=== PATIENT | male | born 1945 | race Caucasian/White ===

== ENCOUNTER 2023-11-14 14:11 | Outpatient (AMB) | payer MEDICARE, BC, SELFPAY ==
--- NOTE | 2023-11-14 15:27 | HO.NEPHOV_ITS ---
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 He has H/O no significant proteinuria and has a bland UA. Etiology of his CKD has been unclear with ddx possibilities including prior SHAAN with incomplete recovery, PARVEZ associated with crohn's or sulfasalazine, nonproteinuric DKD, nephrosclerosis, and CRS. Despite optimization of his volume status using the cardiomems device his creatinine has remained at about 3.8-4 mg/dl. He is not uremic. He tells me that since starting isosorbide, he has had a significant improvement in his SOB and endurance. He has been off of sulfasalazine and his crohn's is quiescent.He went for modality education and is planning for in-center and later eventually home HD. He undertook venous mapping and needs to have the AVF placed when the timing is right. His last eGFR was close to 14 cc/min. He denies any uremic symptoms. He has seen Dr. Aiken who suggested an AV graft when he gets close to initiation of renal replacement. He is here to establish renal care with me. [facility] Medical History (Updated 12/16/23 @ 13:10 by Merritt Daugherty MD) Type 2 diabetes mellitus Congestive heart failure Hypertension Chronic kidney disease Surgical History (Updated 11/14/23 @ 15:36 by Padma Silva MA) S/P placement of cardiac pacemaker S/P rotator cuff repair History of appendectomy History of colectomy History of hip replacement Social History (Updated 11/14/23 @ 15:37 by Padma Silva MA) Alcohol intake: never Patient Tobacco Use Status: Former Tobacco user Vital Signs 11/14/23 15:28 Height 5 ft 8 in Weight 165 lb BMI 25.1 BP 134/70 Blood Pressure Location Rt brachial Position Sitting Pulse 65 Pulse Source Pulse Oximeter Pulse Oximetry (%) 98 Oxygen Delivery Method Room Air Physical Exam Vital Signs: Last Vital Signs Pulse 65 11/14/23 15:28 BP 134/70 11/14/23 15:28 Pulse Ox 98 11/14/23 15:28 Oxygen Delivery Method Room Air 11/14/23 15:28 BMI result Body Mass Index 25.1 Const General: comfortable and no acute distress Orientation/consciousness: patient oriented x3 HEENT Head: Yes normocephalic Mouth: Normal oral and palatal mucosa present Eyes EOM: EOMs intact bilaterally Neck Neck: Yes supple Resp Auscultation: clear to auscultation bilaterally Cardio Jugular venous distension: no JVD Rate: regular rate GI Palpation (GI): Soft to palpation Auscultation: normal bowel sounds General: Yes no CVA tenderness Back/Spine/Pelvis Back: no CVA tenderness Skin General skin exam: no rashes or lesions noted Neuro General: patient oriented x3 and moves all extremities Extrem General: Yes no pedal edema Assessment & Plan Assessment & Plan (1) Anemia in chronic kidney disease (CKD): Code(s): N18.9 - Chronic kidney disease, unspecified; D63.1 - Anemia in chronic kidney disease Qualifiers: Chronic kidney disease stage: stage 5, not on chronic dialysis Qualifi ed Code(s): N18.5 - Chronic kidney disease, stage 5; D63.1 - Anemia in chronic kidney disease (2) Hypertension: Code(s): I10 - Essential (primary) hypertension Qualifiers: Hypertension type: primary hypertension Qualified Code(s): I10 - Essential (primary) hypertension (3) CKD (chronic kidney disease) stage 5, GFR 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 ml/min: Code(s): N18.5 - Chronic kidney disease, stage 5 Plan 78 yo man with stage 5 CKD, potential etiologies could be multiple but not very clear. He has no proteinuria. He had decline in GFR but had hospitalization w ith hypervolemia and was initiated on aggressive medical management. He feels better since he was started on isosorbide. He is with Cardiomems now. He appeared euvolemic and is no longer on sulfasalazine. UA is bland. Doppler is negative for ASTRID. I don't see any benefit to biopsy in this setting. We discussed preparation for dialysis. He is opting for HD. We discussed home HD and he has interest in this but would like to start [place], initially. He is not uremic and remains diuretic responsive. He has seen Dr. Aiken who strongly feels he will be a great candidate for AV graft which could be put in when he is close to initiation of renal replacement. He has anemia chronic kidney disease and will need Procrit in the future to keep his hemoglobin close to 11 grams/deciliter. He is closely followed up with heart failure clinic in [facility] and has a CardioMEMS in place. I did not make any medication changes today but rather discuss this case, ordered follow-up blood work and answered all his questions and concerns. Follow-up was given. I plan to do a 24 hour urine collection for GFR after next visit. Further management is pending evolving data. Orders: Orders IRON PROFILE 11/14/23 N18.4 - Chronic kidney disease, stage 4 (severe), N18.9 - Chronic kidney disease, unspecified, D63.1 - Anemia in chronic kidney disease, I10 - Essential (primary) hypertension Ferritin 11/14/23 N18.4 - Chronic kidney disease, stage 4 (severe), N18.9 - Chronic kidney disease, unspecified, D63.1 - Anemia in chronic kidney disease, I10 - Essential (primary) hypertension Creatinine 11/14/23 N18.4 - Chronic kidney disease, stage 4 (severe), N18.9 - Chronic kidney disease, unspecified, D63.1 - Anemia in chronic kidney disease, I10 - Essential (primary) hypertension Electrolytes 11/14/23 N18.4 - Chronic kidney disease, stage 4 (severe), N18.9 - Chronic kidney disease, unspecified, D63.1 - Anemia in chronic kidney disease, I10 - Essential (primary) hypertension Phosphorus 11/14/23 N18.4 - Chronic kidney disease, stage 4 (severe), N18.9 - Chronic kidney disease, unspecified, D63.1 - Anemia in chronic kidney disease, I10 - Essential (primary) hypertension Calcium 11/14/23 N18.4 - Chronic kidney disease, stage 4 (severe), N18.9 - Chronic kidney disease, unspecified, D63.1 - Anemia in chronic kidney disease, I10 - Essential (primary) hypertension Vitamin D 25-OH Total 11/14/23 N18.4 - Chronic kidney disease, stage 4 (severe), N18.9 - Chronic kidney disease, unspecified, D63.1 - Anemia in chronic kidney disease, I10 - Essential (primary) hypertension Complete Blood Count Auto Diff 11/14/23 N18.4 - Chronic kidney disease, stage 4 (severe), N18.9 - Chronic kidney disease, unspecified, D63.1 - Anemia in chronic kidney disease, I10 - Essential (primary) hypertension Blood Urea Nitrogen 11/14/23 N18.4 - Chronic kidney disease, stage 4 (severe), N18.9 - Chronic kidney disease, unspecified, D63.1 - Anemia in chronic kidney disease, I10 - Essential (primary) hypertension Coding Level of Care Code New Pt Level 4 (54032) Diagnoses Anemia in stage 5 chronic kidney disease, not on chronic dialysis N18.5; D63.1 Chronic kidney disease stage: stage 5, not on chronic dialysis Primary hypertension I10 Hypertension type: primary hypertension CKD (chronic kidney disease) stage 5, GFR 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 ml/min N18.5 Results Reviewed Nephrology Results: No Data to Display
[2023-11-14 15:28] VITALS: BP 134/70; PULSE 65; O2SAT 98; BMI 25.1
== END 2023-11-14 16:17 | disposition home or self-care (01) ==
PROVIDERS: Visit Provider Internal Medicine Nephrology
DX: N18.5 Chronic kidney disease, stage 5 (principal); D63.1 Anemia in chronic kidney disease; I12.0 Hypertensive chronic kidney disease with stage 5 chronic kidney disease or end stage renal disease
CPT/HCPCS: 99204

== ENCOUNTER → 2023-11-14 14:11 | Outpatient (BNVA) | payer MEDICARE, BC, SELFPAY | PROVIDERS: Visit Provider Internal Medicine Nephrology | DX: I12.9 Hypertensive chronic kidney disease with stage 1 through stage 4 chronic kidney disease, or unspecified chronic kidney disease (principal); N18.5 Chronic kidney disease, stage 5; D63.1 Anemia in chronic kidney disease | CPT/HCPCS: 99202 ==

== ENCOUNTER 2024-02-06 13:56 | Outpatient (AMB) | payer MEDICARE, BC, SELFPAY ==
[2024-02-06 14:24] VITALS: BP 132/80; PULSE 63; O2SAT 97; BMI 26.2
--- NOTE | 2024-02-06 14:24 | HO.NEPHOV ---
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 He has H/O no significant proteinuria and has a bland UA. Etiology of his CKD has been unclear with ddx possibilities including prior SHAAN with incomplete recovery, PARVEZ associated with crohn's or sulfasalazine, nonproteinuric DKD, nephrosclerosis, and CRS. Despite optimization of his volume status using the cardiomems device his creatinine has remained at about 3.8-4 mg/dl. He is not uremic. He tells me that since starting isosorbide, he has had a significant improvement in his SOB and endurance. He has been off of sulfasalazine and his crohn's is quiescent.He went for modality education and is planning for in-center and later eventually home HD. He undertook venous mapping and needs to have the AVF placed when the timing is right. His last eGFR was close to 14 cc/min. He has seen Dr. Aiken who suggested an AV graft when he gets close to initiation of renal replacement. [facility] Medical History (Updated 12/16/23 @ 13:10 by Merritt Daugherty MD) Type 2 diabetes mellitus Congestive heart failure Hypertension Chronic kidney disease Surgical History S/P placement of cardiac pacemaker S/P rotator cuff repair History of appendectomy History of colectomy History of hip replacement Social History Alcohol intake: never Patient Tobacco Use Status: Former Tobacco user Physical Exam Vital Signs: Last Vital Signs Pulse 63 02/06/24 14:24 BP 132/80 02/06/24 14:24 Pulse Ox 97 02/06/24 14:24 Oxygen Delivery Method Room Air 02/06/24 14:24 BMI result Body Mass Index 26.2 Const General: comfortable and no acute distress Orientation/consciousness: patient oriented x3 HEENT Head: Yes normocephalic Mouth: Normal oral and palatal mucosa present Eyes EOM: EOMs intact bilaterally Neck Neck: Yes supple Resp Auscultation: clear to auscultation bilaterally Cardio Jugular venous distension: no JVD Rate: regular rate GI Palpation (GI): Soft to palpation Auscultation: normal bowel sounds General: Yes no CVA tenderness Back/Spine/Pelvis Back: no CVA tenderness Skin General skin exam: no rashes or lesions noted Neuro General: patient oriented x3 and moves all extremities Extrem General: Yes no pedal edema Results Reviewed Nephrology Results: No Data to Display Assessment & Plan Assessment & Plan (1) CKD (chronic kidney disease) stage 4, GFR 15-29 ml/min: Code(s): N18.4 - Chronic kidney disease, stage 4 (severe) Category: Medical (2) Hypertension: Code(s): I10 - Essential (primary) hypertension Category: Medical Qualifiers: Hypertension type: primary hypertension Qualified Code(s): I10 - Essential (primary) hypertension (3) Anemia in chronic kidney disease (CKD): Code(s): N18.9 - Chronic kidney disease, unspecified; D63.1 - Anemia in chronic kidney disease Category: Medical Qualifiers: Chronic kidney disease stage: stage 5, not on chronic dialysis Qualified Code(s): N18.5 - Chronic kidney disease, stage 5; D63.1 - Anemia in chronic kidney disease Plan 78 yo man with stage 5 CKD, potential etiologies could be multiple but not very clear. He has no proteinuria. He had decline in GFR but had hospitalization with hypervolemia and was initiated on aggressive medical management. He feels better since he was started on isosorbide. He is with Cardiomems now. He appeared euvolemic and is no longer on sulfasalazine. UA is bland. Doppler is negative for ASTRID. I don't see any benefit to biopsy in this setting. He is opting for HD. We discussed home HD and he has interest in this but would like to start [place], initially. He is not uremic and remains diuretic responsive. He has seen Dr. Aiken who strongly feels he will be a great candidate for AV graft which could be put in when he is close to initiation of renal replacement. He has anemia chronic kidney disease and will need Procrit in the future to keep his hemoglobin close to 11 grams/deciliter. He is closely followed up with heart failure clinic in [facility] and has a CardioMEMS in place. I did not make any medication changes today but rather discuss this case, ordered follow-up blood work and answered all his questions and concerns. Further management is pending evolving data. Orders: Orders Complete Blood Count Auto Diff Today D63.1 - Anemia in chronic kidney disease, I10 - Essential (primary) hypertension, N18.4 - Chronic kidney disease, stage 4 (severe), N18.5 - Chronic kidney disease, stage 5 Parathyroid Hormone Intact Today D63.1 - Anemia in chronic kidney disease, I10 - Essential (primary) hypertension, N18.4 - Chronic kidney disease, stage 4 (severe), N18.5 - Chronic kidney disease, stage 5 Blood Urea Nitrogen Today D63.1 - Anemia in chronic kidney disease, I10 - Essential (primary) hypertension, N18.4 - Chronic kidney disease, stage 4 (severe), N18.5 - Chronic kidney disease, stage 5 Electrolytes Today D63.1 - Anemia in chronic kidney disease, I10 - Essential (primary) hypertension, N18.4 - Chronic kidney disease, stage 4 (severe), N18.5 - Chronic kidney disease, stage 5 Ferritin Today D63.1 - Anemia in chronic kidney disease, I10 - Essential (primary) hypertension, N18.4 - Chronic kidney disease, stage 4 (severe), N18.5 - Chronic kidney disease, stage 5 IRON PROFILE Today D63.1 - Anemia in chronic kidney disease, I10 - Essential (primary) hypertension, N18.4 - Chronic kidney disease, stage 4 (severe), N18.5 - Chronic kidney disease, stage 5 Phosphorus Today D63.1 - Anemia in chronic kidney disease, I10 - Essential (primary) hypertension, N18.4 - Chronic kidney disease, stage 4 (severe), N18.5 - Chronic kidney disease, stage 5 Calcium Today D63.1 - Anemia in chronic kidney disease, I10 - Essential (primary) hypertension, N18.4 - Chronic kidney disease, stage 4 (severe), N18.5 - Chronic kidney disease, stage 5 Creatinine Today D63.1 - Anemia in chronic kidney disease, I10 - Essential (primary) hypertension, N18.4 - Chronic kidney disease, stage 4 (severe), N18.5 - Chronic kidney disease, stage 5
== END 2024-02-06 14:59 | disposition home or self-care (01) ==
PROVIDERS: Visit Provider Internal Medicine Nephrology
DX: I12.0 Hypertensive chronic kidney disease with stage 5 chronic kidney disease or end stage renal disease (principal); N18.5 Chronic kidney disease, stage 5; D63.1 Anemia in chronic kidney disease
CPT/HCPCS: 99214

== ENCOUNTER → 2024-02-06 13:56 | Outpatient (BNVA) | payer MEDICARE, BC, SELFPAY | PROVIDERS: Visit Provider Internal Medicine Nephrology | DX: I12.9 Hypertensive chronic kidney disease with stage 1 through stage 4 chronic kidney disease, or unspecified chronic kidney disease (principal); N18.5 Chronic kidney disease, stage 5; D63.1 Anemia in chronic kidney disease | CPT/HCPCS: 99212 ==

== ENCOUNTER 2024-05-05 14:39 | Outpatient (AMB) | payer MEDICARE, BC, SELFPAY ==
[2024-05-05 15:27] VITALS: BP 130/64; PULSE 60; O2SAT 97; BMI 26.5
--- NOTE | 2024-05-05 15:27 | HO.NEPHOV ---
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 He has H/O no significant proteinuria and has a bland UA. Etiology of his CKD has been unclear with ddx possibilities including prior SHAAN with incomplete recovery, PARVEZ associated with crohn's or sulfasalazine, nonproteinuric DKD, nephrosclerosis, and CRS. Despite optimization of his volume status using the cardiomems device his creatinine has remained at about 3.8-4 mg/dl. He is not uremic. He tells me that since starting isosorbide, he has had a significant improvement in his SOB and endurance. He has been off of sulfasalazine and his crohn's is quiescent.He went for modality education and is planning for in-center and later eventually home HD. He undertook venous mapping and needs to have the AVF placed when the timing is right. His last eGFR was close to 14 cc/min. He has seen Dr. Aiken who suggested an AV graft when he gets close to initiation of renal replacement.His GFR has been fluctuant based on the dose of diuretics he takes( adjusted by Dr Granados) [facility] Medical History (Updated 12/16/23 @ 13:10 by Merritt Daugherty MD) Type 2 diabetes mellitus Congestive heart failure Hypertension Chronic kidney disease Surgical History S/P placement of cardiac pacemaker S/P rotator cuff repair History of appendectomy History of colectomy History of hip replacement Social History Alcohol intake: never Patient Tobacco Use Status: Former Tobacco user Physical Exam Vital Signs: Last Vital Signs Pulse 60 05/05/24 15:27 BP 130/64 05/05/24 15:27 Pulse Ox 97 05/05/24 15:27 Oxygen Delivery Method Room Air 05/05/24 15:27 BMI result Body Mass Index 26.5 Const General: comfortable and no acute distress Orientation/consciousness: patient oriented x3 HEENT Head: Yes normocephalic Mouth: Normal oral and palatal mucosa present Eyes EOM: EOMs intact bilaterally Neck Neck: Yes supple Resp Auscultation: clear to auscultation bilaterally Cardio Jugular venous distension: no JVD Rate: regular rate GI Palpation (GI): Soft to palpation Auscultation: normal bowel sounds General: Yes no CVA tenderness Back/Spine/Pelvis Back: no CVA tenderness Skin General skin exam: no rashes or lesions noted Neuro General: patient oriented x3 and moves all extremities Extrem General: Yes no pedal edema Results Reviewed Nephrology Results: No Data to Display Assessment & Plan Assessment & Plan (1) CKD (chronic kidney disease) stage 5, GFR 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 ml/min: Code(s): N18.5 - Chronic kidney disease, stage 5 Category: Medical (2) Anemia in chronic kidney disease (CKD): Code(s): N18.9 - Chronic kidney disease, unspecified; D63.1 - Anemia in chronic kidney disease Category: Medical Qualifiers: Chronic kidney disease stage: stage 5, not on chronic dialysis Qualified Code(s): N18.5 - Chronic kidney disease, stage 5; D63.1 - Anemia in chronic kidney disease (3) Hypertension: Code(s): I10 - Essential (primary) hypertension Category: Medical Qualifiers: Hypertension type: primary hypertension Qualified Code(s): I10 - Essential (primary) hypertension Plan 78 yo man with stage 5 CKD, potential etiologies could be multiple but not very clear. He has no proteinuria. He had decline in GFR but had hospitalization with hypervolemia and was initiated on aggressive medical management. He feels better since he was started on isosorbide. He is with Cardiomems now. He appeared euvolemic and is no longer on sulfasalazine. UA is bland. Doppler is negative for ASTRID. I don't see any benefit to biopsy in this setting. He is opting for HD. We discussed home HD and he has interest in this [facility]. He is not uremic and remains diuretic responsive. He has seen Dr. Aiken who strongly feels he will be a great candidate for AV graft which could be put in when he is close to initiation of renal replacement. He has anemia chronic kidney disease and will need Procrit in the future to keep his hemoglobin close to 11 grams/deciliter. He is closely followed up with heart failure clinic in [facility] and has a CardioMEMS in place. I did not make any medication changes today but rather discuss this case, ordered follow-up blood work and answered all his questions and concerns. Further management is pending evolving data. Orders: Orders Creatinine Today D63.1 - Anemia in chronic kidney disease, I10 - Essential (primary) hypertension, N18.5 - Chronic kidney disease, stage 5 Blood Urea Nitrogen Today D63.1 - Anemia in chronic kidney disease, I10 - Essential (primary) hypertension, N18.5 - Chronic kidney disease, stage 5 Electrolytes Today D63.1 - Anemia in chronic kidney disease, I10 - Essential (primary) hypertension, N18.5 - Chronic kidney disease, stage 5 Coding Level of Care Code Est Pt Level 4 (13564) Diagnoses CKD (chronic kidney disease) stage 5, GFR 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
== END 2024-05-05 15:55 | disposition home or self-care (01) ==
PROVIDERS: Visit Provider Internal Medicine Nephrology
DX: N18.5 Chronic kidney disease, stage 5 (principal); D63.1 Anemia in chronic kidney disease; I12.0 Hypertensive chronic kidney disease with stage 5 chronic kidney disease or end stage renal disease
CPT/HCPCS: 99214

== ENCOUNTER → 2024-05-05 14:39 | Outpatient (BNVA) | payer MEDICARE, BC, SELFPAY | PROVIDERS: Visit Provider Internal Medicine Nephrology | DX: I12.9 Hypertensive chronic kidney disease with stage 1 through stage 4 chronic kidney disease, or unspecified chronic kidney disease (principal); N18.5 Chronic kidney disease, stage 5; D63.1 Anemia in chronic kidney disease | CPT/HCPCS: 99212 ==

== ENCOUNTER 2024-08-04 14:44 | Outpatient (AMB) | payer MEDICARE, BC, SELFPAY ==
--- NOTE | 2024-08-04 14:46 | HO.NEPHOV ---
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 He has H/O no significant proteinuria and has a bland UA. Etiology of his CKD has been unclear with ddx possibilities including prior SHAAN with incomplete recovery, PARVEZ associated with crohn's or sulfasalazine, nonproteinuric DKD, nephrosclerosis, and CRS. Despite optimization of his volume status using the cardiomems device his creatinine has remained at about 3.8-4 mg/dl. He is not uremic. He tells me that since starting isosorbide, he has had a significant improvement in his SOB and endurance. He has been off of sulfasalazine and his crohn's is quiescent.He went for modality education and is planning for in-center and later eventually home HD. He undertook venous mapping and needs to have the AVF placed when the timing is right. His last eGFR was close to 14 cc/min. He has seen Dr. Aiken who suggested an AV graft when he gets close to initiation of renal replacement.His GFR has been fluctuant based on the dose of diuretics he takes( adjusted by Dr Granados) [facility] Medical History (Updated 12/16/23 @ 13:10 by Merritt Daugherty MD) Type 2 diabetes mellitus Congestive heart failure Hypertension Chronic kidney disease Surgical History S/P placement of cardiac pacemaker S/P rotator cuff repair History of appendectomy History of colectomy History of hip replacement Social History Alcohol intake: never Patient Tobacco Use Status: Former Tobacco user Review of Systems Const All systems reviewed & are unremarkable except as noted in HPI and below Physical Exam Vital Signs: Last Vital Signs Pulse 70 08/04/24 14:48 BP 132/64 08/04/24 14:48 Pulse Ox 97 08/04/24 14:48 Oxygen Delivery Method Room Air 08/04/24 14:48 BMI result Body Mass Index 25.9 Const General: comfortable and no acute distress Orientation/consciousness: patient oriented x3 HEENT Head: Yes normocephalic Mouth: Normal oral and palatal mucosa present Eyes EOM: EOMs intact bilaterally Neck Neck: Yes supple Resp Auscultation: clear to auscultation bilaterally Cardio Jugular venous distension: no JVD Rate: regular rate GI Palpation (GI): Soft to palpation Auscultation: normal bowel sounds General: Yes no CVA tenderness Back/Spine/Pelvis Back: no CVA tenderness Skin General skin exam: no rashes or lesions noted Neuro General: patient oriented x3 and moves all extremities Extrem General: Yes no pedal edema Results Reviewed Nephrology Results: No Data to Display Assessment & Plan Assessment & Plan (1) CKD (chronic kidney disease) stage 5, GFR 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 ml/min: Code(s): N18.5 - Chronic kidney disease, stage 5 Category: Medical (2) Anemia in chronic kidney disease (CKD): Code(s): N18.9 - Chronic kidney disease, unspecified; D63.1 - Anemia in chronic kidney disease Category: Medical Qualifiers: Chronic kidney disease stage: stage 5, not on chronic dialysis Qualified Code(s): N18.5 - Chronic kidney disease, stage 5; D63.1 - Anemia in chronic kidney disease (3) Hypertension: Code(s): I10 - Essential (primary) hypertension Category: Medical Qualifiers: Hypertension type: primary hypertension Qualified Code(s): I10 - Essential (primary) hypertension Plan 78 yo man with stage 5 CKD, potential etiologies could be multiple but not very clear. He has no proteinuria. He had decline in GFR but had hospitalization with hypervolemia and was initiated on aggressive medical management. He feels better since he was started on isosorbide. He is with Cardiomems now. He appeared euvolemic and is no longer on sulfasalazine. UA is bland. Doppler is negative for ASTRID. I don't see any benefit to biopsy in this setting. He is opting for HD. We discussed home HD and he has interest in this but [facility], [facility]. He is not uremic and remains diuretic responsive. He has seen Dr. Aiken who strongly feels he will be a great candidate for AV graft which could be put in when he is close to initiation of renal replacement. He has anemia chronic kidney disease and will need Procrit in the future to keep his hemoglobin close to 11 grams/deciliter. He is closely followed up with heart failure clinic in [facility] and has a CardioMEMS in place. I did not make any medication changes today. F/U given Orders: Orders Complete Blood Count Auto Diff 3 Months D63.1 - Anemia in chronic kidney disease, I10 - Essential (primary) hypertension, N18.5 - Chronic kidney disease, stage 5 Creatinine 3 Months D63.1 - Anemia in chronic kidney disease, I10 - Essential (primary) hypertension, N18.5 - Chronic kidney disease, stage 5 Blood Urea Nitrogen 3 Months D63.1 - Anemia in chronic kidney disease, I10 - Essential (primary) hypertension, N18.5 - Chronic kidney disease, stage 5 Parathyroid Hormone Intact 3 Months D63.1 - Anemia in chronic kidney disease, I10 - Essential (primary) hypertension, N18.5 - Chronic kidney disease, stage 5 Calcium 3 Months D63.1 - Anemia in chronic kidney disease, I10 - Essential (primary) hypertension, N18.5 - Chronic kidney disease, stage 5 Phosphorus 3 Months D63.1 - Anemia in chronic kidney disease, I10 - Essential (primary) hypertension, N18.5 - Chronic kidney disease, stage 5 Electrolytes 3 Months D63.1 - Anemia in chronic kidney disease, I10 - Essential (primary) hypertension, N18.5 - Chronic kidney disease, stage 5 Coding Level of Care Code Est Pt Level 4 (91471) Diagnoses CKD (chronic kidney disease) stage 5, GFR 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
[2024-08-04 14:48] VITALS: BP 132/64; PULSE 70; O2SAT 97; BMI 25.9
== END 2024-08-04 15:30 | disposition home or self-care (01) ==
PROVIDERS: Visit Provider Internal Medicine Nephrology
DX: N18.5 Chronic kidney disease, stage 5 (principal); D63.1 Anemia in chronic kidney disease; I12.0 Hypertensive chronic kidney disease with stage 5 chronic kidney disease or end stage renal disease
CPT/HCPCS: 99214

== ENCOUNTER → 2024-08-04 14:44 | Outpatient (BNVA) | payer MEDICARE, BC, SELFPAY | PROVIDERS: Visit Provider Internal Medicine Nephrology | DX: I13.2 Hypertensive heart and chronic kidney disease with heart failure and with stage 5 chronic kidney disease, or end stage renal disease (principal); I50.30 Unspecified diastolic (congestive) heart failure; N18.5 Chronic kidney disease, stage 5 | CPT/HCPCS: 99212 ==

== ENCOUNTER 2024-10-06 11:28 | Outpatient (AMB) | payer MEDICARE, BC, SELFPAY ==
--- NOTE | 2024-10-06 11:45 | HO.NEPHOV ---
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 He has H/O no significant proteinuria and has a bland UA. Etiology of his CKD has been unclear with ddx possibilities including prior SHAAN with incomplete recovery, AIN associated with crohn's or sulfasalazine, nonproteinuric DKD, nephrosclerosis, and CRS. Despite optimization of his volume status using the cardiomems device his creatinine has remained at about 3.8-4 mg/dl which has worsened to over 5.0 recently. He had been having intermittent low BP's. He is not uremic. He tells me that since starting isosorbide, he has had a significant improvement in his SOB and endurance. He has been off of sulfasalazine and his crohn's is quiescent.He went for modality education in the past and is planning for in-center and later eventually home HD. He undertook venous mapping and needs to have the AVF placed when the timing is right. His last eGFR was close to 14 cc/min which has worsened to 11 mls/mt now. He has seen Dr. Aiken who suggested an AV graft when he gets close to initiation of renal replacement.His GFR had been fluctuant based on the dose of diuretics he takes( adjusted by Dr Granados) [facility] Medical History (Updated 12/16/23 @ 13:10 by Merritt Daughetry MD) Type 2 diabetes mellitus Congestive heart failure Hypertension Chronic kidney disease Surgical History S/P placement of cardiac pacemaker S/P rotator cuff repair History of appendectomy History of colectomy History of hip replacement Social History Alcohol intake: never Patient Tobacco Use Status: Former Tobacco user Review of Systems Const All systems reviewed & are unremarkable except as noted in HPI and below Physical Exam Vital Signs: Last Vital Signs Pulse 52 10/06/24 11:46 BP 140/70 H 10/06/24 11:46 Pulse Ox 97 10/06/24 11:46 Oxygen Delivery Method Room Air 10/06/24 11:46 BMI result Body Mass Index 26.8 Const General: comfortable and no acute distress Orientation/consciousness: patient oriented x3 HEENT Head: Yes normocephalic Mouth: Normal oral and palatal mucosa present Eyes EOM: EOMs intact bilaterally Neck Neck: Yes supple Resp Auscultation: clear to auscultation bilaterally Cardio Jugular venous distension: no JVD Rate: regular rate GI Palpation (GI): Soft to palpation Auscultation: normal bowel sounds General: Yes no CVA tenderness Back/Spine/Pelvis Back: no CVA tenderness Skin General skin exam: no rashes or lesions noted Neuro General: patient oriented x3 and moves all extremities Extrem General: Yes no pedal edema Results Reviewed Nephrology Results: No Data to Display Assessment & Plan Assessment & Plan (1) CKD (chronic kidney disease) stage 5, GFR 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 ml/min: Code(s): N18.5 - Chronic kidney disease, stage 5 Category: Medical (2) Anemia in chronic kidney disease (CKD): Code(s): N18.9 - Chronic kidney disease, unspecified; D63.1 - Anemia in chronic kidney disease Category: Medical Qualifiers: Chronic kidney disease stage: stage 5, not on chronic dialysis Qualified Code(s): N18.5 - Chronic kidney disease, stage 5; D63.1 - Anemia in chronic kidney disease (3) Hypertension: Code(s): I10 - Essential (primary) hypertension Category: Medical Qualifiers: Hypertension type: primary hypertension Qualified Code(s): I10 - Essential (primary) hypertension Plan 78 yo man with stage 5 CKD, potential etiologies could be multiple but not very clear. He has no proteinuria. He had decline in GFR recently either due to progression of his renal disease or due to low BP's. He feels better since he was started on isosorbide. He is with Cardiomems now. He appeared euvolemic and is no longer on sulfasalazine. UA is bland. Doppler is negative for ASTRID. I don't see any benefit to biopsy in this setting. We discussed home HD and he has interest in this but would like to start in center, initially. I have arranged for modality education. He is not uremic and remains diuretic responsive. He has seen Dr. Aiken who strongly feels he will be a great candidate for AV graft which could be put in when he is close to initiation of renal replacement. He has anemia chronic kidney disease and will need Procrit in the future to keep his hemoglobin close to 11 grams/deciliter. He is closely followed up with heart failure clinic in [facility] and has a CardioMEMS in place. I did not make any medication changes today. F/U given Coding Level of Care Code Est Pt Level 4 (00688) Diagnoses CKD (chronic kidney disease) stage 5, GFR 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
[2024-10-06 11:46] VITALS: BP 140/70; PULSE 52; O2SAT 97; BMI 26.8
== END 2024-10-06 12:20 | disposition home or self-care (01) ==
PROVIDERS: PCP Internal Medicine; Visit Provider Internal Medicine Nephrology
DX: N18.5 Chronic kidney disease, stage 5 (principal); D63.1 Anemia in chronic kidney disease; I12.0 Hypertensive chronic kidney disease with stage 5 chronic kidney disease or end stage renal disease
CPT/HCPCS: 99214

== ENCOUNTER → 2024-10-06 11:28 | Outpatient (BNVA) | payer MEDICARE, BC, SELFPAY | PROVIDERS: PCP Internal Medicine; Visit Provider Internal Medicine Nephrology | DX: I12.0 Hypertensive chronic kidney disease with stage 5 chronic kidney disease or end stage renal disease (principal); N18.5 Chronic kidney disease, stage 5; D63.1 Anemia in chronic kidney disease | CPT/HCPCS: 99212 ==

== ENCOUNTER 2024-12-01 15:03 | Outpatient (AMB) | payer MEDICARE, BC, SELFPAY ==
--- NOTE | 2024-12-01 15:14 | HO.NEPHOV ---
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 He has H/O no significant proteinuria and has a bland UA. Etiology of his CKD has been unclear with ddx possibilities including prior SHAAN with incomplete recovery, AIN associated with crohn's or sulfasalazine, nonproteinuric DKD, nephrosclerosis, and CRS. Despite optimization of his volume status using the cardiomems device his creatinine has remained at about 3.8-4 mg/dl which is 4.2 recently. He had been having intermittent low BP's. He is not uremic. He tells me that since starting isosorbide, he has had a significant improvement in his SOB and endurance. He has been off of sulfasalazine and his crohn's is quiescent.He went for modality education in the past and is planning for in-center and later eventually home HD. He undertook venous mapping and needs to have the AVF placed when the timing is right. His last eGFR was close to 14 cc/min which has worsened to 11 mls/mt . He has seen Dr. Aiken who suggested an AV graft when he gets close to initiation of renal replacement.His GFR had been fluctuant based on the dose of diuretics he takes( adjusted by Dr Granados) [facility] Medical History (Updated 12/16/23 @ 13:10 by Merritt Daugherty MD) Type 2 diabetes mellitus Congestive heart failure Hypertension Chronic kidney disease Surgical History S/P placement of cardiac pacemaker S/P rotator cuff repair History of appendectomy History of colectomy History of hip replacement Social History Alcohol intake: never Patient Tobacco Use Status: Former Tobacco user Review of Systems Const All systems reviewed & are unremarkable except as noted in HPI and below Physical Exam Const General: comfortable and no acute distress Orientation/consciousness: patient oriented x3 HEENT Head: Yes normocephalic Mouth: Normal oral and palatal mucosa present Eyes EOM: EOMs intact bilaterally Neck Neck: Yes supple Resp Auscultation: clear to auscultation bilaterally Cardio Jugular venous distension: no JVD Rate: regular rate GI Palpation (GI): Soft to palpation Auscultation: normal bowel sounds General: Yes no CVA tenderness Back/Spine/Pelvis Back: no CVA tenderness Skin General skin exam: no rashes or lesions noted Neuro General: patient oriented x3 and moves all extremities Extrem General: Yes no pedal edema Results Reviewed Nephrology Results: No Data to Display Assessment & Plan Assessment & Plan (1) CKD (chronic kidney disease) stage 5, GFR 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 ml/min: Code(s): N18.5 - Chronic kidney disease, stage 5 Category: Medical (2) Anemia in chronic kidney disease (CKD): Code(s): N18.9 - Chronic kidney disease, unspecified; D63.1 - Anemia in chronic kidney disease Category: Medical Qualifiers: Chronic kidney disease stage: stage 5, not on chronic dialysis Qualified Code(s): N18.5 - Chronic kidney disease, stage 5; D63.1 - Anemia in chronic kidney disease (3) Hypertension: Code(s): I10 - Essential (primary) hypertension Category: Medical Qualifiers: Hypertension type: primary hypertension Qualified Code(s): I10 - Essential (primary) hypertension Plan 79 yo man with stage 5 CKD, potential etiologies could be multiple for his CKD but not very clear. He has no proteinuria. He had decline in GFR recently either due to progression of his renal disease or due to low BP's. He feels better since he was started on isosorbide. He is with Cardiomems now. He appeared euvolemic and is no longer on sulfasalazine. UA is bland. Doppler is negative for ASTRID. I don't see any benefit to biopsy in this setting. We discussed home HD and he has interest in this but would like to start in center, initially. I have arranged for modality education. He is not uremic and remains diuretic responsive. He has seen Dr. Aiken who strongly feels he will be a great candidate for AV graft which could be put in when he is close to initiation of renal replacement. He has anemia chronic kidney disease and will need Procrit in the future to keep his hemoglobin close to 11 grams/deciliter. He is closely followed up with heart failure clinic in [facility] and has a CardioMEMS in place. I did not make any medication changes today. F/U given Orders: Orders Blood Urea Nitrogen 2 Months D63.1 - Anemia in chronic kidney disease, I10 - Essential (primary) hypertension, N18.5 - Chronic kidney disease, stage 5 Electrolytes 2 Months D63.1 - Anemia in chronic kidney disease, I10 - Essential (primary) hypertension, N18.5 - Chronic kidney disease, stage 5 Phosphorus 2 Months D63.1 - Anemia in chronic kidney disease, I10 - Essential (primary) hypertension, N18.5 - Chronic kidney disease, stage 5 Ferritin 2 Months D63.1 - Anemia in chronic kidney disease, I10 - Essential (primary) hypertension, N18.5 - Chronic kidney disease, stage 5 IRON PROFILE 2 Months D63.1 - Anemia in chronic kidney disease, I10 - Essential (primary) hypertension, N18.5 - Chronic kidney disease, stage 5 Parathyroid Hormone Intact 2 Months D63.1 - Anemia in chronic kidney disease, I10 - Essential (primary) hypertension, N18.5 - Chronic kidney disease, stage 5 Creatinine 2 Months D63.1 - Anemia in chronic kidney disease, I10 - Essential (primary) hypertension, N18.5 - Chronic kidney disease, stage 5 Calcium 2 Months D63.1 - Anemia in chronic kidney disease, I10 - Essential (primary) hypertension, N18.5 - Chronic kidney disease, stage 5 Complete Blood Count Auto Diff 2 Months D63.1 - Anemia in chronic kidney disease, I10 - Essential (primary) hypertension, N18.5 - Chronic kidney disease, stage 5 Coding Level of Care Code Est Pt Level 4 (96483) Diagnoses CKD (chronic kidney disease) stage 5, GFR 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
[2024-12-01 15:15] VITALS: BP 138/70; PULSE 60; O2SAT 98; BMI 26.5
--- OUTSIDE RECORDS SUMMARY | 2024-12-01 15:53 | XMS_ITS | Continuity of Care Document ---
Author Organization [place] - [facility], [facility] Address [address] [place] [address] Care Team Providers Care Irrigation Foreman Name Role Phone KELLY COLEMAN Primary Care Provider Assessment Encounter Date Assessment Date Assessment LastModified by Organization Details LastModified Time 11/19/2024 11/19/2024 Recommendatio ns: Follow up with referring provider. [email or web address] Not available 11/19/2024 14:00:27 Plan of Treatment Reminders Order Date Submit Date Provider Last Modified By Organization Details Last Modified Time Details Appointments TY Initial Fitting 2024 03:00P M CHRIS MANZO Not available Not available Not available Lab None recorded . Referral None recorded . Procedures None recorded . Surgeries None recorded . Imaging None recorded . Medication Orders None recorded . Patient TargetsNo targets recorded. Patient InstructionsNo instructions recorded. Reason for Referral None Reported. Results Created Date Observation Date Name Description Value Unit Range Abnormal Flag Note LastModifiedBy Organization Detail LastModifiedTime 11/20/19 25 audio gram No observ ation record ed. BARCODE Not Available 2024 09:41:00 Result Notes None recorded. Problems Name Problem SNOMED Code Status Onset Date Resolution Date Notes Provider Name and Address Organization Details Recorded Time Traumatic hematoma 546667243 Active 2023 KATHERINE DAVID MD [address] [place] [address], [place], [phone], [facility] - [facility] 15:47:27 Bilateral earache 342769528 Active 2023 KATHERINE DAVID MD [address] [address], [place], [phone], [facility] - [facility] 4 15:47:38 Sensorineural hearing loss of bilateral ears 714041321 Active 2024 AIMEE FISHER [place], [facility] [address] [facility] [address], [place], [phone], [facility] 5 14:01:08 Problem Notes None recorded. Procedures Surgical History Date Name Laterality Status Provider Name and Address Organization Details Recorded Time 11/19/2024 Comp Audio with Tymps (38764 & [id number]) completed AIMEE FISHER [place], [facility] [address] [facility],[address] [address], [place], [phone], [facility] 11/19/2024 14:03:40 08/19/2024 FOL_DP completed KATHERINE DAVID MD [address] [place] [address],[address] [address], [place], [phone], [facility] 08/19/2024 15:46:31 Imaging Results None recorded. Procedure Notes None recorded. Medical Equipment None Reported. Allergies No known drug allergies Medications Name Sig Start Date Stop Date Status Note LastModified by Organization Details LastModified Time amoxicillin 500 mg capsule TAKE ONE CAPSULE BY MOUTH EVERY 8 HOURS 11/19 completed Not Available Not Available Not Available metolazone 2.5 mg tablet TAKE 1 TABLET BY MOUTH ONCE DAILY DIRECTED BY [facility] TAKE 30 MINUTES PRIOR TO DIURETIC DOSE IN THE MORNING active Not Available Not Available No t Available hydralazine 10 mg tablet TAKE 1 TABLET BY MOUTH THREE TIMES DAILY AFTER A MEAL active Not Available Not Available No t Available potassium chloride ER 10 mEq capsule,ext ended release TAKE 1 CAPSULE BY MOUTH TWICE DAILY active Not Available Not Available No t Available torsemide 20 mg tablet TAKE 4 TABLETS BY MOUTH TWICE DAILY SATURDAY- AND TAKE 2 TABLETS BY MOUTH TWICE DAILY SATURDAY- SATURDAY active Not Available Not Available No t Available amiodarone 200 mg tablet TAKE 1 TABLET BY MOUTH ONCE DAILY active Not Available Not Available No t Available isosorbide mononitrate ER 30 mg tablet,exte nded release 24 hr TAKE 1 TABLET BY MOUTH ONCE DAILY IN THE MORNING active Not Available Not Available No t Available doxepin 10 mg capsule TAKE 1 CAPSULE BY MOUTH NIGHTLY AT BEDTIME active Not Available Not Available No t Available levothyroxi ne 100 mcg tablet TAKE 1 TABLET BY MOUTH ONCE DAILY IN THE MORNING active Not Available Not Available No t Available amitriptyli ne 25 mg tablet TAKE 1 TABLET BY MOUTH ONCE DAILY AT BEDTIME active Not Available Not Available No t Available amlodipine 10 mg tablet TAKE 1 TABLET BY MOUTH ONCE DAILY active Not Available Not Available No t Available levothyroxi ne 125 mcg tablet TAKE 1 TABLET BY MOUTH EVERY MORNING active Not Available Not Available No t Available metronidazo le 0.75 % topical cream Apply topically 2 (two) times a day. active Not Available Not Available No t Available clobetasol 0.05 % topical ointment APPLY TOPICALLY TO AFFECTED AREA TWICE DAILY active Not Available Not Available No t Available fluticasone propionate 50 mcg/actuati on nasal spray,suspe nsion USE 2 SPRAY(S) IN EACH NOSTRIL ONCE DAILY active Not Available Not Available No t Available amoxicillin 500 mg-potassiu m clavulanate 125 mg tablet TAKE 1 TABLET BY MOUTH EVERY 8 HOURS 11/19 completed Not Available Not Available Not Available azelaic acid 15 % topical gel Apply to affected areas of face twice daily. active Not Available Not Available No t Available Eliquis 5 mg tablet TAKE 1 TABLET BY MOUTH TWICE DAILY active Not Available Not Available No t Available Vitals Date Recorded Body height Body weight Provider Name and Address Organization Details Last Updated DateTime 11/19/2024 172.72 cm 99285.66 g Verónica Sauer [place] - [facility] 11/19/2024 14:21:46 Social History None recorded. Functional Status None recorded. Mental Status None recorded. Family History Nothing Reported. Medical History Condition Response Allergies/Hayfever N Heart Problems Y Anxiety N Emphysema N Migraines N Thyroid Problems N Depression N COPD N Developmental Delay N Glaucoma N Nasal or Sinus Problems N Anemia N Anesthesia Complications N Heart Attack (NE) N Other Skin Condition N Diabetes Y Rhinitis N Bleeding Disorder N Food Allergy N Hearing Loss N Arthritis Y Hyperlipidemia N Cancer N Stroke Y Dementia N Nasal polyps Y Asthma N Sleep Disorder N High Cholesterol Y GERD/Reflux Y Liver Disease N Headaches N Fibromyalgia N Hypertension Y Speech Delay N Kidney Disease Y Past Encounters Encounter ID Performer Location Encounter Start Date Encounter Closed Date Diagnosis/Indication Diagnosis SNOMED-CT Code Diagnosis ICD10 Code Diagnosis Note [id number] KATHERINE DAVID MD [facility] [address] [place] [address] 11/19/2024 13:15:30 11/19/2024 14:45:11 Sensorineural hearing loss of bilateral ears [id number] H90.3 [id number] AIMEE FISHER MA, CCC-A [facility] [address] [place] [address] 11/19/2024 13:59:56 11/24/2024 03:58:53 Sensorineural hearing loss of bilateral ears [id number] H90.3 Audiologic al evaluation results: Right ear: {{Normal N ormal through 2 kHz Mild M oderate Mo derately-s evere Maria re Profoun d Normal hearing sloping to mild thru 3000Hz#}} {{hearing hearing. s loping to a mild slopi ng to a moderate s loping to moderately severe slo ping to severe slo ping to profound f lat high frequency low frequency mid frequency cookie bite ye curve drop ping to severe SNHL#}} {{with* se nsorineura l hearing loss with condu ctive hearing loss with mixed hearing loss with}} {{excellen t good* fa ir poor no measurable }} word recognitio n. Left ear: {{Normal N ormal through 2 kHz Mild M oderate Mo derately-s evere Maria re Profoun d Normal/ borderline normal hearing thru 2000Hz#}} {{hearing hearing. s loping to a mild slopi ng to a moderate s loping to moderately severe slo ping to severe slo ping to profound f lat high frequency low frequency mid frequency cookie bite ye curve slop ing to a mild to severe SNHL#}} {{with* se nsorineura l hearing loss with condu ctive hearing loss with mixed hearing loss with}} {{excellen t good* fa ir poor no measurable }} word recognitio n. Tympanomet ry: Right Ear:{{Type A Type As Type Ad Type C* Type C, shallow & rounded Ty pe B Type B with large volume Cou ld not maintain a hermetic seal}} Left Ear:{{Type A* Type As Type Ad Type C Type C, shallow & rounded Ty pe B Type B with large volume Cou ld not maintain a hermetic seal}} Health Concerns Section Related Observation LastModified by Organization Detai ls LastModified Time None Recorded Concern Status LastModified by Organization Details LastModified Time None Recorded Payers Encounter Date Sequence Insurance Name Policy Number Policy Cannon Covered Member ID Cannon Member ID Guarantor Name 11/19/2024 2 [place] [id number] Patricia Fierro [id number] Dago Kim 11/19/2024 1 [place] [id number] Dago Kim [id number] Dago Kim Notes Date Note Type Note Provider Name and Address Organization Details Recorded Time 11/19/2024 text/html Longstanding hearing loss AIMEE FISHER MA, CCC-A [address] [place] [address], [phone], [place] - [facility] 11/19/2024 14:04:01 11/19/2024 text/html hearing loss PV 08/19/24 Rashard tongue pigmentation eval, normal FOL. B otalgia likely referred pain. 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 KATHERINE DAVID MD [address] [place] [address], [phone], [facility] - [facility] 11/19/2024 14:42:17
--- OUTSIDE RECORDS SUMMARY | 2024-12-01 15:53 | XMS_ITS | Continuity of Care Document ---
Author Organization [facility] Address [address] [place] [address]- Support Name Relationship Address Phone EFRAIN VERNON spouse Unknown Unavailable EFRAIN BARONE Personal Relationship Unknown Unav ailable JANEEN, EFRAIN spouse Unknown Unavailable JANEEN, EFRAIN spouse Unknown Unavailable Encounter [facility] Date(s): 10/19/24 - 11/18/24 [facility] [address] [place] [id number] Encounter Type: Triage Allergies, Adverse Reactions, Alerts Substance Criticality Severity Reaction Reaction Severity Status clindamycin 1 Unknown Active metFORMIN 2 Unknown Active dilTIAZem 3 Unknown Active 1Outside Source Comment: Other reaction(s): Severe heartburn 2Outside Source Comment: Diarrhea. Switched to metformin ER 3Outside Source Comment: Do not rememmbered Do not rememmbered Immunizations Given and Recorded Vaccine Date Status Refusal Reason SARS-CoV-2 (COVID-19) mRNA BNT-162b2 vac 08/02/21 Given SARS-CoV-2 (COVID-19) mRNA BNT-162b2 vac 12/23/20 Recorded SARS-CoV-2 (COVID-19) mRNA BNT-162b2 vac 12/02/20 Recorded influenza virus vaccine, inactivated 07/25/21 Jaspreet rded influenza virus vaccine, inactivated 08/12/20 Jaspreet rded influenza virus vaccine, inactivated 11/11/19 Jaspreet rded influenza virus vaccine, inactivated 08/12/18 Jaspreet rded influenza virus vaccine, inactivated 08/19/17 Jaspreet rded influenza virus vaccine, inactivated 10/03/16 Jaspreet rded influenza virus vaccine, inactivated 09/27/15 Jaspreet rded influenza virus vaccine, inactivated 09/13/14 Jaspreet rded influenza virus vaccine, inactivated 09/11/13 Jaspreet rded influenza virus vaccine, inactivated 09/09/12 Jaspreet rded zoster vaccine, inactivated 06/22/19 Recorded zoster vaccine, inactivated 04/09/19 Recorded pneumococcal 23-valent vaccine 03/20/17 Recorded pneumococcal 13-valent vaccine 05/06/15 Recorded tetanus/diphtheria/pertussis, acel(Tdap) 09/13/14 Recorded Medications amiodarone 200 mg oral tablet 200 mg, 1, tablet, By Mouth, Daily, # 90 tablet, Refills 3, Tot. Refills 3, Maintenance, 05/25/24 3:17:00 PM EDT, Route to Pharmacy Electronically, [id number], Partial fill upon patient request if the prescription is for a schedule II opioid drug., 172, cm, 04/29/24 16:38:00 EDT, Height, 73, kg, 09/25/23 16:52:00 EST, Dry Weight Start Date: 05/25/24 Stop Date: 05/20/25 Status: Ordered Quantity: 90.0 Unit: tablet Repeat number: 4 amitriptyline 25 mg oral tablet 25 mg, 1, tablet, By Mouth, Daily at bedtime, # 90 tablet, Refills 1, Tot. Refills 1, Maintenance, 04/28/24 4:44:00 PM EDT, Route to Pharmacy Electronically, [id number], Partial fill upon patient request if the prescription is for a schedule II opioid drug., 172, cm, 04/28/24 15:37:00 EDT,Height, 73, kg, 09/25/23 16:52:00 EST, Dry Weight Start Date: 04/28/24 Stop Date: 10/25/24 Status: Ordered Quantity: 90.0 Unit: tablet Repeat number: 2 amLODIPine 10 mg oral tablet 1 tablet = 10 mg, By Mouth, Daily, # 90 tablet, 3 Refills, Maintenance, 08/07/24 9:46:00 AM EDT, Tablet, [facility], Partial fill upon patient request if the prescription is for a scheduleII opioid drug., 172, cm, 04/29/24 16:38:00 EDT, Height, 73, kg, 09/25/23 16:52:00 EST, Dry Weight Start Date: 08/07/24 Stop Date: 08/02/25 Status: Ordered Quantity: 90.0 Unit: tablet Repeat number: 4 DIURETIC INTERVENTION DIURETIC INTERVENTION, See Instructions, # 1 each, Refills 0, Tot. Refills 0, Maintenance, Standard Intervention for high PAD (PAD above goal for at least 2 readings) Double dose of loop diuretic for 2 days. Return to baseline dose of diuretics for at least 2 days. Repeat above if neccessary. If on once daily diuretics, increase to BID for 2 days. Standard Intervention for low PAD (PAD below goal for at least 2 readings) Hold PM dose of loop diuretic until PAD in range If on once daily diuretics, hold diuretic until PAD in range , 06/05/23 6:59:00 AM EDT, Supply Start Date: 06/05/23 Status: Ordered Quantity: 1.0 Unit: each Repeat number: 1 doxepin 10 mg oral capsule 1 capsule = 10 mg, By Mouth, 3 times a day, 0 Refills, Maintenance, 09/23/23 1:33:00 PM EST, Partialfill upon patient request if the prescription is for a schedule II opioid drug. Start Date: 09/23/23 Status: Ordered Repeat number: 1 Eliquis 5 mg oral tablet 1 tablet = 5 mg, By Mouth, 2 times a day, # 180 tablet, 3 Refills, Maintenance, 01/31/24 3:37:00 PM EDT, Tablet, [id number], Partial fill upon patient request if the prescription is for a schedule II opioid drug., 172, cm, 10/18/23 12:30:00 EST, Height, 73, kg, 09/25/23 16:52:00 EST, Dry Weight Start Date: 01/31/24 Status: Ordered Quantity: 180.0 Unit: tablet Repeat number: 4 famotidine 20 mg oral tablet 20 mg, 1, tablet, By Mouth, 2 times a day, # 60 tablet, Refills 0, Maintenance, 07/02/21 7:11:00 PM EDT, Partial fill upon patient request if the prescription is for a schedule II opioid drug. Start Date: 07/02/21 Status: Ordered Quantity: 60.0 Unit: tablet Repeat number: 1 fluticasone 50 mcg/inh nasal spray 1 sprays = 50 mcg, Nares, Both, Daily, 0 Refills, Maintenance, 04/28/24 3:44:00 PM EDT, Partial fill upon patient request if the prescription is for a schedule II opioid drug. Start Date: 04/28/24 Status: Ordered Repeat number: 1 hydrALAZINE 10 mg oral tablet 10 mg, 1, tablet, By Mouth, 3 times a day after meals, # 270 tablet, Refills 3, Tot. Refills 3, Maintenance, 08/07/24 9:44:00 AM EDT, Route to Pharmacy Electronically, [id number], Partial fill upon patient request if the prescription is for a schedule II opioid drug., 172, cm, 04/29/24 16:38:00 EDT, Height, 73, kg, 09/25/23 16:52:00 EST, Dry Weight Start Date: 08/07/24 Stop Date: 08/02/25 Status: Ordered Quantity: 270.0 Unit: tablet Repeat number: 4 isosorbide mononitrate 30 mg oral tablet, extended release 1 tablet = 30 mg, By Mouth, Daily in AM, # 90 tablet, 3 Refills, Maintenance, 08/28/24 3:43:00 PM EST, ER Tablet, [facility], Partial fill upon patient request if the prescription is for a schedule II opioid drug., 175, cm, 08/03/24 13:23:00 EDT, Height, 74.5, kg, 08/03/24 13:23:00 EDT, Dry Weight Start Date: 08/28/24 Stop Date: 08/23/25 Status: Ordered Quantity: 90.0 Unit: tablet Repeat number: 4 levothyroxine 125 mcg (0.125 mg) oral tablet 1 tablet = 125 mcg, By Mouth, Daily, # 30 tablet, 0 Refills, Maintenance, 07/23/23 3:15:00 PM EDT, Tablet, [facility], Partial fill upon patient request if the prescription is for a schedule II opioid drug., 172, cm, 07/23/23 11:55:00 EDT, Height, 72.8, kg, 07/23/23 14:19:00 EDT, Dry Weight Start Date: 07/23/23 Stop Date: 08/22/23 Status: Ordered Quantity: 30.0 Unit: tablet Repeat number: 1 metolazone 2.5 mg oral tablet 2.5 mg, 1, tablet, By Mouth, Daily, take as directed by clinic take 1 tablet 30 minutes prior todiuretic dose in the AM, # 30 tablet, Refills 0, Tot. Refills 0, Maintenance, 06/09/24 12:38:00 PM EDT, Route to Pharmacy Electronically, [facility], Partial fill upon patient request if the prescription is for a schedule II opioid drug., 172, cm, 04/29/24 16:38:00 EDT, Height, 73, kg, 09/25/23 16:52:00 EST, Dry Weight Start Date: 06/09/24 Status: Ordered Quantity: 30.0 Unit: tablet Repeat number: 1 Metronidazole Maintenance, 04/28/24 3:44:00 PM EDT Start Date: 04/28/24 Status: Ordered Repeat number: 1 Please have your labwork for chemistries and renal function in 3 days Please have your labwork for chemistries and renal function in 3 days, See Instructions, # 1 each, Refills 0, Tot. Refills 0, Maintenance, Please have your labwork for chemistries and renal function in 3 days, 08/02/21 1:37:00 PM EDT, Supply Start Date: 08/02/21 Status: Ordered Quantity: 1.0 Unit: each Repeat number: 1 potassium chloride 10 mEq oral capsule, extended release 1 capsule = 10 mEq, By Mouth, 2 times a day, # 180 capsule, 3 Refills, Maintenance, 08/03/24 3:41:00 PM EDT, CR Capsule, [facility], Partial fill upon patient request if the prescription is for a schedule II opioid drug., 175, cm, 08/03/24 13:23:00 EDT, Height, 74.5, kg, 08/03/24 13:23:00 EDT, Dry Weight Start Date: 08/03/24 Status: Ordered Quantity: 180.0 Unit: capsule Repeat number: 4 Probiotic Formula By Mouth, Daily, 0 Refills, Maintenance, 12/12/22 1:27:00 PM EST, Partial fill upon patient request if the prescription is for a schedule II opioid drug. Start Date: 12/12/22 Status: Ordered Repeat number: 1 torsemide 20 mg oral tablet See Instructions, 4 tablets by mouth twice daily Saturday-Saturday 2 tablets by mouth twice daily -Saturday, # 160 tablet, 1 Refills, Maintenance, 10/26/24 7:48:00 AM EST, Tablet, [id number], Partial fill upon patient request if the prescription is for a schedule II opioid drug., 175,cm, 08/03/24 13:23:00 EDT, Height, 74.5, kg, 08/03/24 13:23:00 EDT, Dry Weight Start Date: 10/26/24 Status: Ordered Quantity: 160.0 Unit: tablet Repeat number: 2 Vitamin B12 1000 mcg oral tablet 2 tablet = 2,000 mcg, By Mouth, Daily, # 90 tablet, 0 Refills, Maintenance, 01/08/22 3:30:00 PM EDT,Tablet, Partial fill upon patient request if the prescription is for a schedule II opioid drug. Start Date: 01/08/22 Status: Ordered Quantity: 90.0 Unit: tablet Repeat number: 1 Problem List Condition Confirmation Course Effective Dates Status H ealth Status Informant A-fib Confirmed Active Chronic kidney disease Confirmed Active Crohn disease Confirmed Active Heart failure with preserved ejection fraction Confirmed Active HTN (hypertension) Confirmed Active Hypertrophic cardiomyopathy Confirmed Active Paroxysmal atrial fibrillation Confirmed Active T2DM (type 2 diabetes mellitus) Confirmed Active Ventricular tachycardia Confirmed Active Social History Social History Type Response Smoking Status Former smoker, quit more than 30 days ago; Type: Cigarettes entered on: 07/31/21 Sex Sex Representation Male (finding) Patient Care team information Care Team Personnel Name: Chayito Leary Position: S RN Supv Member Role: Primary Care Nurse Name: Tucker Odom RN Position: S RN Member Role: Primary Care Nurse Name: Hailee Colón RN Position: S RN Member Role: Primary Care Nurse Name: Tanvi Huitron RN Position: S RN Member Role: Primary Care Nurse Name: Sophia Bell RN Position: S RN Member Role: Primary Care Nurse Care Team Related Persons Name: EFRAIN VERNON Insurance Providers Guarantor name: FERMÍN ABISAI [employer] Plan Information #: 1 Payer: MEDICARE PART B OUTPT Member Number: NA Policy Number: NA Group Number: NA Health Plan Information #: 2 Payer: BLUE MEDICARE SUPPL Member Number: NA Policy Number: NA Group Number: NA Health Plan Information #: 3 Payer: BLUE CARE ELECT Member Number: NA Policy Number: NA Group Number: NA
--- OUTSIDE RECORDS SUMMARY | 2024-12-01 15:53 | XMS_ITS | Encounter Summary ---
Author Organization [facility] Address [phone] [facility] [place] [address] Care Team Providers Care Turkey Farmer Name Role Phone Lucita Way MD Unavailable Lucita Way MD Primary Care Provider [phone] Chloe Patel RN Unavailable [email or web address] Encounter Details Date Type Department Care Team (Late st Contact Info) Description 12/01/2024 Orders Only [facility] [place] [address] [place] [address] Provider, MD Candy [facility] [place] [address] Social History Tobacco Use Types Packs/Day Years Used Date Smoking Tobacco: Former Smokeless Tobacco: Never Alcohol Use Standard Drinks/Week Comments Yes 0 (1 standard drink = 0.6 oz pur e alcohol) Rarelly Education Answer Date Recorded Are you interested in more education? Not on shana e 03/03/2023 Are you concerned about learning? Not on file 03/03/2023 No 03/03/2023 No 03/03/2023 Digital Access Answer Date Recorded No 03/17/2023 No 03/17/2023 Reliable internet access at home? Not on file 03/17/2023 Device with a working camera? Not on file Intimate Partner Violence Answer Date R ecorded Denied Basic Needs Not on file 12/11/2023 In the past 12 months have y ou been in a relationship with a person who hurts, threatens, or tries to control you? No 12/11/2023 Worried food would run out Not on file 12/11 In the past 12 months have y ou been in a relationship with a person who hurts, threatens, or tries to control you? No 12/11/2023 Sex and Gender Information Value Date Recorded Sex Assigned at Not on file Gender Identity Not on file Sexual Orientation Not on file documented as of this encounter Plan of Treatment Upcoming Encounters Date Type Department Care Team (Late st Contact Info) Description 12/16/2024 2:20 PM EST Appointment [facility] [place] [address] [place] [address] MD [address] [place] [address] 08/17/2025 1:40 PM EDT Office Visit Adult & Pediatric Dermatology, [address] [place] [address] Isabel Alexander MD [address] [place] [address] documented as of this encounter Procedures Procedure Name Priority Date/Time Associated Diagnosis Comments OUTSIDE LAB Routine 12/01/2024 9:42 AM EST documented in this encounter Results * Outside Lab (12/01/2024 9:42 AM EST) Historical Provider LAB BLOOD ORDERAB LES documented in this encounter Visit Diagnoses Not on filedocumented in this encounter Additional Health Concerns Assessment Noted Time PHQ-2 Depression Total Score: 0 12/11/19 24 2:04 PM EST documented as of this encounter Care Teams Turkey Farmer Relationship Specialty Start Date End Date Lucita Way MD [address] [place] [address] PCP - General Internal Medicine 11/23/[address] MD [address] [place] [address] Insurance Assigned Provider 4/6/24 Chloe Patel, CELINA [address] [place] [address] [email or web address] iCMP Watershed Engineer 08/24/22 documented as of this encounter Additional Source Comments The information contained in this document represents components of the legal health record. It is not the complete legal health record.[facility]
--- OUTSIDE RECORDS SUMMARY | 2024-12-01 15:53 | XMS_ITS | Encounter Summary ---
Author Organization [facility] Address [phone] [facility] [place] [address] Care Team Providers Care Dermatology Sales Representative Name Role Phone Lucita Way MD Unavailable Lucita Way MD Primary Care Provider [phone] Chloe Patel RN Unavailable [email or web address] Encounter Details Date Type Department Care Team (Late st Contact Info) Description 12/01/2024 Orders Only [facility] [place] [address] [place] [address] MD [address] [place] [address] Social History Tobacco Use Types Packs/Day Years [...] Info) Description 12/16/2024 2:20 PM EST Appointment [facility] [place] [address] [place] [address] MD [address] [place] [address] 08/17/2025 1:40 PM EDT Office Visit Adult & Pediatric Dermatology, [address] [facility] [address] [place] [address] Isabel Alexander MD [address] [place] [address] documented as of this encounter Procedures Procedure Name Priority Date/Time Associated Diagnosis Comments OUTSIDE TRIGLYCERIDES Routine 11/27/2024 OUTSIDE TSH LEVEL Routine 11/27/2024 OUTSIDE POTASSIUM LEVEL Routine 11/27/2024 OUTSIDE HEMOGLOBIN A1C Routine 11/27/2024 OUTSIDE LDL Routine 11/27/2024 OUTSIDE GLUCOSE FASTING Routine 11/27/2024 OUTSIDE ALT LEVEL Routine 11/27/2024 OUTSIDE TOTAL CHOLESTEROL Routine 11/27/2024 OUTSIDE ALKALINE PHSOPHATASE LEVEL Routine 11/27/2024 OUTSIDE HDL Routine 11/27/2024 documented in this encounter Results * Outside Potassium Level (11/27/2024) Pathologist [facility] Potassium level - External 3.8 3.4 - 5.0 mmol/L Historical Provider MD LAB BLOOD ORDERAB LES * Outside HbA1c (11/27/2024) Pathologist [facility] Hemoglobin A1c - External 6.1 % Historical Provider MD LAB BLOOD ORDERAB LES * Outside LDL (11/27/2024) Pathologist [facility] LDL - External 161 50 - 250 mg/dL Historical Provider MD LAB BLOOD ORDERAB LES * Outside TSH Level (11/27/2024) [facility] TSH - External 0.812 0.5 - 5 uIU/L Historical Provider MD LAB BLOOD ORDERAB LES * Outside ALT Level (11/27/2024) [facility] ALT - External 9 5 - 30 U/L Historical Provider MD LAB BLOOD ORDERAB LES * (ABNORMAL) Outside Total Cholesterol (11/27/2024) Pathologist [facility] Cholesterol, total - External 245(A) 200 mg/dL Historical Provider MD LAB BLOOD ORDERAB LES * (ABNORMAL) Outside Alkaline Phosphatase Level (11/27/2024) Pathologist [facility] ALKALINE PHOSPHATE LEVEL - EXTERNAL 151(A) 50 - 100 U/L Historical Provider MD LAB BLOOD ORDERAB LES * (ABNORMAL) Outside Glucose,Fasting (11/27/2024) Pathologist [facility] Glucose, fasting - External 162(A) 65 - 99 mg/dL Historical Provider MD LAB BLOOD ORDERAB LES * Outside HDL (11/27/2024) [facility] HDL - External 43 40 - 80 mg/dL Historical Provider MD LAB BLOOD ORDERAB LES * (ABNORMAL) Outside Triglycerides (11/27/2024) Triglycerides - External 221(A) 35 - 150 mg/dL Historical Provider LAB BLOOD ORDERAB LES documented in this encounter Visit Diagnoses Not on filedocumented in this encounter Additional Health Concerns Assessment Noted Time PHQ-2 Depression Total Score: 0 12/11/19 24 2:04 PM EST documented as of this encounter Care Teams Dermatology Sales Representative Relationship Specialty Start Date End Date Lucita Way MD [address] [place] [address] PCP - General Internal Medicine 11/23/[address] MD [address] [place] [address] Insurance Assigned Provider 01/25/24 Chloe Patel, CELINA [address] [place] [address] [address] [address] [email or web address] [email or web address] Aeronautical Drafter 08/24/22 documented as of this encounter Additional Source Comments The information contained in this document represents components of the legal health record. It is not the complete legal health record.[facility]
--- OUTSIDE RECORDS SUMMARY | 2024-12-01 15:53 | XMS_ITS | Clinical Summary ---
Author Organization [facility] Address [address] [place] [address] Care Team Providers Care Theatre Manager Name Role Phone Lucita Way MD Primary Care Provider [phone] Allergies Active Allergy Reactions Criticality Noted Date Comments Diltiazem 04/17/2010 Do not rememmbered Metformin (Bulk) 06/04/2012 Diarrhea. Switched to metformin ER Penicillins Itching,Rash Low 06/12/2000 Medications Eliquis 5 mg tab TAKE 1 TABLET BY MOUTH TWICE DAILY 05/04/2021 Active famotidine (PEPCID) 20 MG tablet TAKE 1 TABLET BY MOUTH TWICE DAILY 02/27/2021 Active metFORMIN (GLUCOPHATE-XR) 500 MG 24 hr tablet TAKE 4 TABLETS BY MOUTH ONCE DAILY 02/13/2021 Active sulfaSALAzine (AZULFIDINE) 500 mg tablet TAKE 4 TABLETS BY MOUTH TWICE DAILY 04/03/2021 Active amitriptyline (ELAVIL) 25 MG tablet 03/01/2021 Active MESALAMINE ORAL Take by mouth. Active Pacerone 200 mg tablet TAKE 2 TABLETS BY MOUTH TWICE DAILY FOR 3 DAYS 07/09/2021 Active aspirin 81 MG tablet TAKE 1 TABLET BY MOUTH ONCE DAILY 07/09/2021 Active atorvastatin (LIPITOR) 20 MG tablet TAKE 1 TABLET BY MOUTH ONCE DAILY AT BEDTIME 07/09/2021 Active clobetasoL (TEMOVATE) 0.05 % ointment apply BID to affected skin. 04/15/2015 Active metoprolol (TOPROL-XL) 50 MG 24 hr tablet TAKE 1 TABLET BY MOUTH ONCE DAILY 07/09/2021 Active Social History Tobacco Use Types Packs/Day Years Used Date Smoking Tobacco: Former Smokeless Tobacco: Never Sex and Gender Information Value Date Recorded Sex Assigned at Not on file Legal Sex Male 5:44 PM EST Gender Identity Not on file Sexual Orientation Not on file Last Filed Vital Signs Vital Sign Reading Time Taken Comments Blood Pressure 158/76 07/29/2021 2:14 PM EDT Pulse 69 07/29/2021 2:14 PM EDT Temperature 36.5 ??C (97.7 ??F) 07/29/2021 2:14 PM ED T Respiratory Rate 14 07/29/2021 2:14 PM EDT Oxygen Saturation 100% 07/29/2021 2:14 PM EDT Inhaled Oxygen Concentration - - Weight 82.6 kg (182 lb) 05/10/2021 11:56 AM EDT Height 175.3 cm (5' 9 ) 05/10/2021 11:56 AM EDT Body Mass Index 26.88 05/10/2021 11:56 AM EDT Plan of Treatment Health Maintenance Due Date Last Done Comments Depression: Screening Annual ly using PHQ-2/9 in Adults 18 yrs or above (or HM Modifier)([facility]) 1963 Hepatitis C Virus Infection in Adolescents and Adults: Screening (or Modifier) ([facility]) 1963 SDVT Screening Reminder: Dot ually for all adults ([facility]) 1963 Tobacco Smoking Cessation: i n Adults excluding Women: Behavioral and Pharmacotherapy Interventions ([facility]) 1963 Lipid Screening: Every 5 yrs for Men aged 35+ (or HM Modifier) ([facility]) 1981 Lung Cancer: Screening Annua lly in adults aged 50 to 80 years (or HM Modifiers)([facility]) 1995 Zoster/Shingles Vaccine Seri es Screening: Adults aged 18+ yrs (or HM Modifiers)([facility]) (1 of 2) 1995 Pneumococcal Vaccination Scr eening: Patients 65+ yrs of age ([facility]) (2 of 2 - PCV) 03/20/2018 03/20/2017, 04/11/2009 RSV Vaccines (1 - 1-dose 75+ series) 02/10/2020 Flu Vaccination: Ages 65+: Y early High Dose Recommended (or Modifier)([facility]) 05/21/2024 08/12/2018, 08/19/2017, 10/03/2016, Additional history exists COVID-19 Vaccine Screening: Initial Series and Booster Status ([facility]) (1 - 2023- season) 2024 DTaP/Tdap/Td Vaccines ([facility]) (2 - Td or Tdap) 09/13/2024 09/13/2014 Medical Devices Not on file Insurance MEDICARE [facility] Care Teams Theatre Manager Relationship Specialty Start Date End Date Lucita Way MD [facility] [address] [place] [address] PCP - General Internal Medicine 05/10/21
--- OUTSIDE RECORDS SUMMARY | 2024-12-01 15:53 | XMS_ITS | Encounter Summary ---
Author Organization [facility] Address [phone] [facility] [place] [address] Care Team Providers Care Poultry Farmworker Name Role Phone Lucita Way MD Unavailable Lucita Way MD Primary Care Provider [phone] Chloe Patel RN Unavailable [email or web address] Reason for Visit * Reason Onset Date Comments Care Coordination 11/26/2024 Routine follow up Encounter Details Date Type Department Care Team (Latest Contact Info) Description 11/26/2024 Patient Outreach [facility]. Care Management [address] [address] Chloe Patel, RN [address] [address] [email or web address] Care Coordination (Routine follow up) Social History Tobacco Use Types Packs/Day Years [...] on file documented as of this encounter Progress Notes * Chloe Patel, CELINA - 11/26/2024 10:02 AM EST Called to check in with Dago. 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 Reports that the medication is not working and he was advised to check in with his doctors prior to increasing dose. I suggested he contact his graphite mill operator prior to increasing dose He reports that he saw his mva operator last week and doing well heart turner . Reports no leg swelling or SOB. Grain Miller Helper plans on ordering PFTs Hole Puncher Strap has been watching Cr which has been running around 3.9 and discussing potential dialysis options. Dago reports a preference for HD over PD. He had a recent US to assess vessels for fistula and access my be difficult. He reports that a tube may be utilized instead of a fistula. Currently able to afford medications. Reports that his product ([employer]) for medication coverage still indicates donut hole for 2024. I messaged [facility] pharmacist for clarification. Denies food insecurity and able to pay for utilities, but things are tight . I encouraged Dago to reach out as needed. Has office visit with Dr Way scheduled on 12/16 CM will follow with next planned outreach in 6 months via phone documented in this encounter Miscellaneous Notes * Plan of Care - Chloe Patel RN - 11/26/2024 10:02 AM EST Problem: Medical Condition Self-Management - Care Management - Adult/Pediatric Goal: Able to maintain current level of functioning Description: Patient Agrees with goal priority: Yes Patient will contribute towards managing this health goal by: Health condition self-management activities: Meal planning, Blood pressure monitoring, Weight monitoring for heart failure, and Recognizing symptom causes Barrier(s) to patient achieving this health goal: Declining Functional Status and Financial resources Outcome: Progressing Note: Called to check in with aDgo. 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 Reports that the medication is not working and he was advised to check in with his doctors prior to increasing dose. I suggested he contact his graphite mill operator prior to increasing dose He reports that he saw his mva operator last week and doing well heart turner . Reports no leg swelling or SOB. Grain Miller Helper plans on ordering PFTs Hole Puncher Strap has been watching Cr which has been running around 3.9 and discussing potential dialysis options. Dago reports a preference for HD over PD. He had a recent US to assess vessels for fistula and access my be difficult. He reports that a tube may be utilized instead of a fistula. Currently able to afford medications. Reports that his product ([employer]) for medication coverage still indicates donut hole for 2024. I messaged Celi [facility] pharmacist for clarification. Denies food insecurity and able to pay for utilities, but things are tight . I encouraged Dago to reach out as needed. Has office visit with Dr Way scheduled on 12/16 CM will follow with next planned outreach in 6 months via phone documented in this encounter Plan of Treatment Upcoming Encounters Date Type Department Care Team (Late st Contact Info) Description 12/16/2024 2:20 PM EST Appointment [facility] [place] [address] [place] [address] MD [address] [place] [address] 08/17/2025 1:40 PM EDT Office Visit Adult & Pediatric Dermatology, [address] [facility] [address] [place] [address] Isabel Alexander MD [address] [place] [address] documented as of this encounter Visit Diagnoses Not on filedocumented in this encounter Additional Health Concerns Assessment Noted Time PHQ-2 Depression Total Score: 0 12/11/19 24 2:04 PM EST documented as of this encounter Care Teams Poultry Farmworker Relationship Specialty Start Date End Date Lucita Way MD [address] [place] [address] PCP - General Internal Medicine 11/23/[address] MD [address] [place] [address] Insurance Assigned Provider 01/25/24 Chloe Patel, CELINA [address] [place] [address] [address] [address] [email or web address] Patient Day Coordinator 08/24/22 documented as of this encounter Additional Source Comments The information contained in this document represents components of the legal health record. It is not the complete legal health record.[facility]
--- OUTSIDE RECORDS SUMMARY | 2024-12-01 15:53 | XMS_ITS | Encounter Summary ---
Author Organization [facility] Address [phone] [facility] [place] [address] Care Team Providers Care Sales Representative Wire Rope Name Role Phone Lucita Way MD Unavailable Lucita Way MD Primary Care Provider [phone] Chloe Patel RN Unavailable [email or web address] Reason for Visit * Reason Comments Medication Refill Encounter Details Date Type Department Care Team (Late st Contact Info) Description 11/30/2024 Refill [facility] [place] [address] [place] [address] MD [address] [place] [address] Medication Refill Social History Tobacco Use Types Packs/Day Years [...] 2:20 PM EST Appointment [facility] [place] [address] [place] [address] MD [address] [place] [address] 08/17/2025 1:40 PM EDT Office Visit Adult & Pediatric Dermatology, [address] [facility] [address] [place] [address] Isabel Alexander MD [address] [place] [address] documented as of this encounter Visit Diagnoses Not on filedocumented in this encounter Additional Health Concerns Assessment Noted Time PHQ-2 Depression Total Score: 0 12/11/19 24 2:04 PM EST documented as of this encounter Care Teams Sales Representative Wire Rope Relationship Specialty Start Date End Date Lucita Way MD [address] [place] [address] PCP - General Internal Medicine 11/23/[address] MD [address] [place] [address] Insurance Assigned Provider 01/25/24 Chloe Patel RN [address] [facility] [address] [place] [address] [email or web address] iCMP Development Manager 08/24/22 documented as of this encounter Additional Source Comments The information contained in this document represents components of the legal health record. It is not the complete legal health record.[facility]
--- OUTSIDE RECORDS SUMMARY | 2024-12-01 15:53 | XMS_ITS | Continuity of Care Document ---
Author Organization [facility] Address [address] [place] [phone]- Support Name Relationship Address Phone EFRAIN VERNON spouse Unknown Unavailable EFRAIN BARONE Personal Relationship Unknown Unav ailable JANEEN, EFRAIN spouse Unknown Unavailable JANEEN, EFRAIN spouse Unknown Unavailable Encounter [facility] Date(s): 10/06/24 - 11/05/24 [facility] [address] [place] [phone]- Encounter Type: Triage Allergies, Adverse Reactions, Alerts Substance Criticality Severity Reaction Reaction Severity Status clindamycin 1 Unknown Active dilTIAZem 2 Unknown Active metFORMIN 3 Unknown Active 1Outside Source Comment: Other reaction(s): Severe heartburn 2Outside Source Comment: Do not rememmbered Do not rememmbered 3Outside Source Comment: Diarrhea. Switched to metformin ER Immunizations Given and Recorded Vaccine Date Status [...] vaccine, inactivated 06/22/19 Recorded zoster vaccine, inactivated 6/20/19 Recorded pneumococcal 23-valent vaccine 03/20/17 Recorded pneumococcal 13-valent vaccine 05/06/15 Recorded tetanus/diphtheria/pertussis, acel(Tdap) 09/13/14 Recorded Medications amiodarone 200 mg oral tablet 200 mg, 1, tablet, By Mouth, Daily, # 90 tablet, Refills 3, Tot. Refills 3, Maintenance, 05/25/24 3:17:00 PM EDT, Route to Pharmacy Electronically, [facility], Partial fill upon patient [...] 4:44:00 PM EDT, Route to Pharmacy Electronically, [facility], Partial fill upon patient [...] Refills, Maintenance, 08/07/24 9:46:00 AM EDT, Tablet, [facility], Partial fill upon patient [...] Refills, Maintenance, 01/31/24 3:37:00 PM EDT, Tablet, [facility], Partial fill upon patient [...] 9:44:00 AM EDT, Route to Pharmacy Electronically, [facility], Partial fill upon patient [...] Maintenance, 08/28/24 3:43:00 PM EST, ER Tablet, [facility], Partial fill upon patient [...] Refills, Maintenance, 07/23/23 3:15:00 PM EDT, Tablet, [facility], Partial fill upon patient [...] 12:38:00 PM EDT, Route to Pharmacy Electronically, [facility], Partial fill upon patient [...] Maintenance, 08/03/24 3:41:00 PM EDT, CR Capsule, [facility], Partial fill upon patient [...] Refills, Maintenance, 10/26/24 7:48:00 AM EST, Tablet, [id number], Partial fill upon patient request if the [...] Care Team Personnel Name: Chayito Leary Position: [facility] RN Supv Member Role: Primary Care Nurse [...] VERNON Insurance Providers Guarantor name: FERMÍN ABISAI DND Consulting Plan Information #: 1 Payer: MEDICARE PART B OUTPT Member Number: NA Policy Number: NA Group Number: NA Health Plan Information #: 2 Payer: BLUE MEDICARE SUPPL Member Number: NA Policy Number: NA Group Number: NA Health Plan Information #: 3 Payer: BLUE CARE ELECT Member Number: NA Policy Number: NA Group Number: NA
--- OUTSIDE RECORDS SUMMARY | 2024-12-01 15:53 | XMS_ITS | Encounter Summary ---
Author Organization [facility] Address [phone] [facility] [place] [address] Care Team Providers Care Fusing Machine Tender Name Role Phone Lucita Way MD Unavailable Lucita Way MD Primary Care Provider [phone] Chloe Patel RN Unavailable [email or web address] Reason for Visit * Reason Comments Medication Refill Encounter Details Date Type Department Care Team (Late st Contact Info) Description 11/13/2024 [facility]ill [facility] [address] [place] [address] MD [address] [place] [address] Medication Refill Social History Tobacco Use Types [...] as of this encounter Progress Notes * Kala Ackerman MA - 11/13/2024 10:54 AM EST Last TSH was 0.796 on 06/2024. documented in this encounter Plan of Treatment Upcoming Encounters Date Type Department Care Team (Late st Contact Info) Description 12/16/2024 2:20 PM EST Appointment [facility] [address] [place] [address] MD [address] [place] [address] 08/17/2025 1:40 PM EDT Office Visit Adult & Pediatric Dermatology, [address] [facility] [address] [place] [address] Isabel Alexander MD 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 [place] [address] PCP - General Internal Medicine 11/23/[address] MD 200 [facility]. [address] [place] [address] Insurance Assigned Provider 01/25/24 Chloe Patel, CELINA [address] [place] [id number] [email or web address] [employer] Textile Coating Machine Operator 08/24/22 documented as of this encounter Additional Source Comments The information contained in this document represents components of the legal health record. It is not the complete legal health record.[facility]
--- OUTSIDE RECORDS SUMMARY | 2024-12-01 15:53 | XMS_ITS | Clinical Summary ---
Author Organization [facility] Address [address] [facility] [address] [place] [address] Phone Care Team Providers Care Energy Sales Broker Name Role Phone Unavailable Primary Care Provider Unavailabl e Allergies Active Allergy Reactions Criticality Noted Date Comments Diltiazem 04/17/2010 Do not rememmbered Do not rememmbered Metformin 06/04/2012 Diarrhea. Switched to metformin ER Diarrhea. Switched to metformin ER Diarrhea. Switched to metformin ER Penicillins Itching,Rash Low 06/12/2000 Medications amiodarone (PACERONE) 200 MG tablet Take 200 mg by mouth 1 (one) time each day Active amitriptyline (ELAVIL) 25 MG tablet Take 25 mg by mouth every night 1-2 tabs qhs Active apixaban (Eliquis) 5 MG tablet Take 5 mg by mouth in the morning and 5 mg in the evening. Active cyanocobalamin (VITAMIN B-12) 1000 MCG tablet Take 1,000 mcg by mouth 1 (one) time each day Active famotidine (PEPCID) 20 MG tablet Take 20 mg by mouth in the morning and 20 mg in the evening. Active fenofibrate micronized (LOFIBRA) 67 MG capsule Take 67 mg by mouth 1 (one) time each day before breakfast Active levothyroxine sodium (TIROSINT) 50 MCG capsule Take 50 mcg by mouth 1 (one) time each day Active metFORMIN (GLUCOPHAGE) 500 MG tablet Take 500 mg by mouth in the morning and 500 mg at noon and 500 mg in the evening and 500 mg before bedtime. Active metoprolol succinate XL (TOPROL XL) 50 MG 24 hr tablet Take 50 mg by mouth in the morning and 50 mg in the evening. Do not crush or chew. . Active sulfaSALAzine (AZULFIDINE) 500 MG tablet Take 500 mg by mouth in the morning and 500 mg at noon and 500 mg in the evening. Active Active Problems Problem Noted Date Diagnosed Date Paroxysmal atrial fibrillation 01/08/2023 Heart disease 01/08/2023 Ventricular tachycardia 01/08/2023 Heart failure with normal ejection fraction 12/20 Hypertensive heart disease without heart failure 04/11/2021 custodial current use of oral hypoglycemic drug 04/11/2021 Other fatigue 04/11/2021 Palpitations 04/09/2021 Diverticulosis of large inte justin without perforation or abscess without bleeding 08/29/2017 Overview (01/08/2023): 08/22/17, Dr. Morgan, [facility], pathology neg. Repeat in 5 year. Int. hemorrhoid and sig+gen diverticulosis. Renal disorder due to type 2 diabetes mellitus 0 01/27/2016 Chronic kidney disease stage 3 09/27/2015 Overview (01/08/2023): 04/30/2018, referred to Dr. Sanchez. 06/26/18, Dr. Sanchez: CKD: Stage III of unclear etiology. eGFR in the 50-55 range from 08/2014-01/2015 then dropped to under 40 by January 2016 since which has remained stable in the 35-40 range. Cause of this drop is not clear. AIN remains among differential (PPI) and he is going to look to see when he was started on them. -UA: Neg prot and neg blood with essentially bland sediment -HTN BP controlled -DM/Pre-DM: Controlled -Proteinuria controlled to normoalbuminuria -Continue lisinopril 20 mg daily -Stop ibuprofen and avoid NSAIDs -Kidney ultrasound -Labs today (not fasting, well hydrated, not sick) Dyspnea 08/08/2015 Overview (01/08/2023): 07/05/2015, Dr. Knapp: sched PFT is neg, methacholine challenge. 07/26/2015, Dr. Knapp: NL PFT Ultrasonography of abdomen abnormal 03/07/2015 Overview (01/08/2023): 02/21/2015, Dr. Morgan: L 5 mm GB polyp, fatty liver, 0.7 cm L hepatic cyst. 2 cm R hepatic cyst Bilateral renal cyst. 1.2 cm avasvcular hypoecoid structure in pancreatic body, may have been present previously. US in 6 months is rec. Polyp of maxillary sinus 10/05/2014 Overview (01/08/2023): 09/22/2014, Endoscopic R middle meatus antrotomy with navigation, Dr. Fernandes. Cerebrovascular accident 10/02/2011 Overview (01/08/2023): 10/02/2011, presented with vertigo and diplopia. MRI showed L inf cerebellar hemisphere stroke, likely L post inf cerebellar artery. Carotid duplex NL. 05/13/2012, cont aggrenox. 01/07/2015, Dr. Mo: cont aggrenox BID. FU in 6 m. 06/30/2015, Dr. Mo: cont current Tx. Ex-smoker 05/28/2011 Overview (01/08/2023): Quit in 1993 Gastroesophageal reflux disease 05/28/2011 Overview (01/08/2023): Takes ranitidine. Dr. Morgan. 06/30/2001, EGD mild chronic gastritis. HP neg. 07/14/2012, EGD, Dr. Morgan: mild to moderate erosive antritis C/W aggrenox use, mild to mod. Lower esophageal sphincter laxity with junctional peptic stricture dilated to 10 mm and the second submucosal stricture dilated to 20 mm each causing a small to mod size rent. 02/15/2015, EGD, Dr. Morgan: mod active duodenitis, neg H. Pylori, active esophagitis, no Barretts. Tx with protonix 40 mg. Hold motrin. Diflucan 100 mg qd x 7 days, carafate 4 tsp BID. FU in 3-4 weeks. 08/23/17, Dr. Morgan: EGD showed mild chronic inactive gastritis, H. Pylori neg. Mild active esophagitis with intraepithelial eosinoiphils. Cont omeprazole. No specific recall. Benign prostatic hyperplasia 07/19/2010 Overview (01/08/2023): 06/30, Dr. Garza Cardiomyopathy 04/17/2010 Overview (01/08/2023): 08/2008, Unclear etiology. EF=45% from 55% in 2005. ETT with poor capacity with no change from abnormal baseline. Changed from Atenolol to carvedilol. CP resolved. Dr. Henriquez following. Sees him every year. Cath in 2001 was clean. -10-year estimated risk of serious cardiovascular events (including stroke and heart attack) is 50.1%, based on: Age: 70 years Gender: male Race: White Treatment for Hypertension: Yes Smoking status: No Diabetes: Yes Total cholesterol/HDL cholesterol: 223 / 32 Last systolic blood pressure: 140 -I have been recommending status with the patient. The patient has been refusing. He stated Dr. Henriquez and Dr. Funk are not worried. He also feels that statins is a very bad medication. Interrupt with many medications and the benefit that is shown in the literature is statisticle, there is no really definite benefits. He does not decrease peoples heart attack risk. -I calculated his risk for him and told him that the chances of him having another stroke and a vascular event is 50%. I disagree with Dr. Henriquez and Dr. Funk if this is what they've decided. -Patient is adamant in not taking statins. He would not take it. 10/29/16, Dr. Henriquez, echo:CELESTINE, LAE, mildly reduced LV and normal RV systolic function, LV diastolic dysfunction, mild aortic and mitral and tricuspid regurg, mild pulmonary hypertension. No antibiotic prophylaxis isn't needed. Chest pain 04/17/2010 Overview (01/08/2023): 2002, cath NL. Syndrome X. Cp resolved after started on carvedilol in 2004. Complex renal cyst 04/17/2010 Overview (01/08/2023): 11/30, CT bilateral cyst. Some mildly complex. 06/30, Dr. Garza. FU US in 1 year. If unchanged, no further work up is needed. 07/02/2011, renal US, increase size of R renal pole cyst, other bilateral renal cysts are stable. Dr. Garza. 02/21/2015, [facility], Dr. Morgan There are multiple bilateral renal cysts. 9.2 x 6.5 x 4.9 cm exophytic right renal lower pole simple cyst. 11.7 x 11.2 x 7.2 cm exophytic simple cyst in the left renal midpole. 4.7 x 3.3 x 3.1 cm simple cyst in the left renal upper pole. Multiple other left renal cysts are seen. No definite solid renal lesion is identified, although the examination is limited by the patient's body habitus. Pt is discharged by Dr. Garza. 02/21/2015, [facility], Dr. Morgan There are multiple bilateral renal cysts. 9.2 x 6.5 x 4.9 cm exophytic right renal lower pole simple cyst. 11.7 x 11.2 x 7.2 cm exophytic simple cyst in the left renal midpole. 4.7 x 3.3 x 3.1 cm simple cyst in the left renal upper pole. Multiple other left renal cysts are seen. No definite solid renal lesion is identified, although the examination is limited by the patient's body habitus. -he is discharged by Dr. Gazra. Crohn's disease 04/17/2010 Overview (01/08/2023): Dr. Morgan. [facility]-06/30/2001, colonic mucosa displaying focal congestion in lamina propria [facility]-07/07/2009, inflammatory polyp with focal lymphoid hyperplasia. [facility]-07/14/2012, well controlled colitis. And patent anastomosis from prior sigmoid resection. Mild diverticulosis, int. Hemorrhoids. Mild inflammation of the IC valve C/W known Crohn's. 06/28/2013, ED/EH, colitis flare-up. Switch from SULFASALAZINE to mesalamine. Tx with prednisone, started at 40 mg. 08/22/17, Dr. Morgan, [facility], pathology neg. Repeat in 5 year. Int. hemorrhoid and sig+gen diverticulosis. Based on record review by Occupational Therapy Manager and clinical documentation. [facility]Dr Morgan office visit 03/13/17, Impression: Crohn's enteritis and colitis, stable. Essential hypertension 04/17/2010 Hyperlipidemia 04/17/2010 Overview (01/08/2023): 03/29, switched from lovastatin(not effective at 80mg) to pravachol. Niacin was stopped in 2009. 04/06/2013, pt states stopped atorvastatin 40 mg. 06/22/2014, the pt has HTN, metabolic syndrome, DM and H/O CVA, the goal is to keep LDL < 70 according to rec. From [employer]. -pt reports that Dr. Henriquez felt his lipid is well controlled, no need for increasing atorvastatin. -his 3 G also needs to be treated, I rec fenofibrate. -the pt wants to wait for Dr. Morgan's decision. 02/16/2015, declined increasing, states Dr. Henriquez is happy with his lipid readings. 03/29/2015, pt spoke to CP, declined statins. 09/27/2015, declined meds, would like to speak with Dr. Morgan. -10-year estimated risk of serious cardiovascular events (including stroke and heart attack) is 50.1%, based on: Age: 70 years Gender: male Race: White Treatment for Hypertension: Yes Smoking status: No Diabetes: Yes Total cholesterol/HDL cholesterol: 223 / 32 Last systolic blood pressure: 140 -I have been recommending status with the patient. The patient has been refusing. He stated Dr. Henriquez and Dr. Funk are not worried. He also feels that statins is a very bad medication. Interrupt with many medications and the benefit that is shown in the literature is statisticle, there is no really definite benefits. He does not decrease peoples heart attack risk. -I calculated his risk for him and told him that the chances of him having another stroke and a vascular event is 50%. I disagree with Dr. Henriquez and Dr. Funk if this is what they've decided. -Patient is adamant in not taking statins. He would not take it. Left ventricular hypertrophy 04/17/2010 Metabolic syndrome 04/17/2010 Overview (01/08/2023): 2002, clean cath. Nummular eczema 04/17/2010 Overview (01/08/2023): clobetasol Type 2 diabetes mellitus 04/17/2010 Overview (01/08/2023): 09/27, no Immunizations Name Administration Dates Next Due Influenza Split High Dose Pr eservative Free IM 08/12/2018,08/19/2017,10/03/2016,09/27,09/13/2014 Influenza, Unspecified 07/25/2021,2019,11/11/2019,08/12,08/19/2017,10/03/2016,09/27/2015 ,09/13/2014,09/11/2013,09/11/2013,08/22 Pfizer SARS-COV-2 08/02/2021,12/23/2020,12/02/19 21 Pneumococcal Conjugate 13-Valent 05/06/2015 Pneumococcal Polysaccharide 03/20/2017, 9 Shingrix 06/22/2019,04/09/2019 Tdap 09/13/2014 Tetanus 08/10/2005 Zoster 09/19/2009 Family History Medical History Relation Comments Heart disease Father CAD Relation Status Comments Father Social History Tobacco Use Types Packs/Day Years Used Date Smoking Tobacco: Never Assessed Sex and Gender Information Value Date Recorded Sex Assigned at Not on file Legal Sex Male 11:53 AM EST Gender Identity Not on file Sexual Orientation Not on file Plan of Treatment Health Maintenance Due Date Last Done Comments Diabetes: Hemoglobin A1C 11/07/2022 Diabetes: Ophthalmology Exam 11/07/2022 Diabetes: Pedal Pulse Checked 11/07/2022 Diabetes: Sensory Foot Exam 11/07/2022 Diabetes: Visual Foot Exam 11/07/2022 Influenza Vaccine (#1) 2024 , 08/12/2020, 11/11/2019, Additional history exists Pneumococcal Vaccine: 65+ Years Completed 03/20/2017, 05/06/2015, 04/11/2009 Hepatitis B Vaccine Aged Out No longe r eligible based on patient's age to complete this topic Insurance MEDICARE [facility] MEDICARE [facility]
--- OUTSIDE RECORDS SUMMARY | 2024-12-01 15:53 | XMS_ITS | Encounter Summary ---
Author Organization [facility] Address [phone] [facility] [employer] [place] [address] Care Team Providers Care Consulting Services Manager Name Role Phone Lucita Way MD Unavailable Lucita Way MD Primary Care Provider [phone] Chloe Patel RN Unavailable [email or web address] Reason for Visit * Reason Comments Medication Refill Encounter Details Date Type Department Care Team (Late st Contact Info) Description 11/03/2024 Refill [facility] [place] [address] [facility] [address] [place] [address] MD [address] [place] [address] Medication Refill Social History Tobacco Use Types [...] 2:20 PM EST Appointment [facility] [place] [address] [place] [address] MD [address] [place] [address] 08/17/2025 1:40 PM EDT Office Visit Adult & Pediatric Dermatology, [address] [facility] [employer] [facility] [address] [place] [address] Isabel Alexander MD [address] [place] [address] documented as of this encounter Visit Diagnoses Not on filedocumented in this encounter Additional Health Concerns Assessment Noted Time PHQ-2 Depression Total Score: 0 12/11/19 24 2:04 PM EST documented as of this encounter Care Teams Consulting Services Manager Relationship Specialty Start Date End Date Lucita Way MD [address] [place] [address] PCP - General Internal Medicine 11/23/[address] MD [address] [place] [address] Insurance Assigned Provider 01/25/24 Chloe Patel RN [address] [facility] [address] [place] [address] [email or web address] Cartoon Designer 08/24/22 documented as of this encounter Additional Source Comments The information contained in this document represents components of the legal health record. It is not the complete legal health record.[facility]
--- OUTSIDE RECORDS SUMMARY | 2024-12-01 15:53 | XMS_ITS | Encounter Summary ---
Author Organization [facility] Address [phone] [address] [place] [address] Care Team Providers Care Hydraulic Strainer Operator Name Role Phone Lucita Way MD Unavailable Lucita Way MD Primary Care Provider [phone] Chloe Patel RN Unavailable [email or web address] Reason for Visit * Reason Onset Date Comments [facility] 11/26/2024 Encounter Details Date Type Department Care Team (Late st Contact Info) Description 11/26/2024 Telephone [facility] [place] [place], trend.ly. Care Management [address] [facility] [address] [place], [place] [phone] Celi Starr, [facility] [address] [place] [address] [email or web address] [facility] Social History Tobacco Use Types Packs/Day Years [...] as of this encounter Progress Notes * Celi Starr [facility] - 11/26/2024 11:24 AM EST Contacted by [facility] wild animal caretaker regarding questions that pt has with his Medicare coverage for 2024.Pt states that his plan still has the donut hole listed as part of his coverage. Pt is on Eliquis 5 mg BID. Plan Number [id number] Plan Network ID Number [id number] - Blue MedicareRx documented in this encounter Plan of Treatment Upcoming Encounters Date Type Department Care Team (Late st Contact Info) Description 12/16/2024 2:20 PM EST Appointment [facility] [place] [address] [place] [address] MD [address] [place] [address] 08/17/2025 1:40 PM EDT Office Visit Adult & Pediatric Dermatology, [address] [facility] [address] [place] [address] Isabel Alexander MD [address] [place] [address] documented as of this encounter Visit Diagnoses Not on filedocumented in this encounter Additional Health Concerns Assessment Noted Time PHQ-2 Depression Total Score: 0 12/11/19 24 2:04 PM EST documented as of this encounter Care Teams Hydraulic Strainer Operator Relationship Specialty Start Date End Date Lucita Way MD [address] [place] [address] PCP - General Internal Medicine 11/23/[address] MD [address] [place] [address] Insurance Assigned Provider 01/25/24 Chloe Patel, CELINA [address] [place] [id number] [email or web address] Electrical Technology Instructor 08/24/22 documented as of this encounter Additional Source Comments The information contained in this document represents components of the legal health record. It is not the complete legal health record.[facility]
--- OUTSIDE RECORDS SUMMARY | 2024-12-01 15:53 | XMS_ITS | Continuity of Care Document ---
Author Organization [facility] Address [address] [place] [address]- Support Name Relationship Address Phone EFRAIN VERNON spouse Unknown Unavailable EFRAIN BARONE Personal Relationship Unknown Unav ailable JANEEN, EFRAIN spouse Unknown Unavailable JANEEN, EFRAIN spouse Unknown Unavailable [facility]counter [facility] Date(s): 10/26/24 - 11/25/24 [facility] [address] [place] [address]- Encounter Type: Triage Allergies, Adverse Reactions, Alerts [...] inactivated 09/09/12 Jaspreet rded zoster vaccine, inactivated 9/2/19 Recorded zoster vaccine, inactivated 04/09/19 Recorded pneumococcal 23-valent vaccine 03/20/17 Recorded pneumococcal 13-valent vaccine 05/06/15 Recorded tetanus/diphtheria/pertussis, acel(Tdap) 09/13/14 Recorded Medications amiodarone 200 mg oral tablet 200 mg, 1, tablet, By Mouth, Daily, # 90 tablet, Refills 3, Tot. Refills 3, Maintenance, 05/25/24 3:17:00 PM EDT, Route to Pharmacy Electronically, [facility], Partial fill upon patient [...] 4:44:00 PM EDT, Route to Pharmacy Electronically, [facility], Partial fill upon patient [...] Refills, Maintenance, 08/07/24 9:46:00 AM EDT, Tablet, [facility], Partial fill upon patient [...] Refills, Maintenance, 01/31/24 3:37:00 PM EDT, Tablet, [facility], Partial fill upon patient [...] 9:44:00 AM EDT, Route to Pharmacy Electronically, [facility], Partial fill upon patient [...] Maintenance, 08/28/24 3:43:00 PM EST, ER Tablet, [facility], Partial fill upon patient [...] Refills, Maintenance, 07/23/23 3:15:00 PM EDT, Tablet, [facility], Partial fill upon patient [...] 12:38:00 PM EDT, Route to Pharmacy Electronically, [facility], Partial fill upon patient [...] Maintenance, 08/03/24 3:41:00 PM EDT, CR Capsule, [facility], Partial fill upon patient [...] Refills, Maintenance, 10/26/24 7:48:00 AM EST, Tablet, [id number], Partial fill upon patient request if the [...] Name: EFRAIN VERNON Insurance Providers Guarantor name: [facility] Plan Information #: 1 Payer: MEDICARE PART B OUTPT Member Number: NA Policy Number: NA Group Number: NA Health Plan Information #: 2 Payer: BLUE MEDICARE SUPPL Member Number: NA Policy Number: NA Group Number: NA
--- OUTSIDE RECORDS SUMMARY | 2024-12-01 15:53 | XMS_ITS | Data Portability ---
Author Organization [place] - [facility], Allergy Address [address] [address] Care Team Providers Care Mend Worker Name Role Phone VIRGINIAKELLY ERIKGabrielle Primary Care Provider Assessment Encounter Date Assessment Date Assessment LastModified by Organization Details LastModified Time 08/19/2024 08/19/2024 Unfortunately images from his EGD were not able to be reviewed as the fax machine, scanner made them unrecognizable as they were not color images anymore. A fiberoptic laryngoscopy was performed with notation of left buccal hematoma, likely traumatic as he recalls biting his cheek. Otherwise the larynx and base of tongue were normal with no discoloration of the mucosa. Patient indicated he has several additional concerns 1 of which is bilateral otalgia that is intermittent lasting a few days. He has not had this problem recently and his examination of his ears was otherwise normal. We spent considerable time discussing his use of Flonase, antibiotics that have not been very effective at resolving his otalgia. Possibility of referred discomfort from TMJ, eustachian tube dysfunction from air travel, true ear infections were all entertained but not felt to be relevant at this time Additional concern of hearing loss, offered him the opportunity to follow-up for hearing testing [email or web address] Not available 08/19/2024 15:53:51 11/19/2024 11/19/2024 Patient's audiogram shows bilateral moderate sensorineural hearing loss with well maintained speech discrimination. There is enough hearing loss to affect day-to-day hearing performance. We discussed in detail the pros and cons of amplification (hearing aids). Patient would like to learn more about this option so we will set them up for a hearing aid evaluation. Patient is medically cleared for amplification bilaterally. [email or web address] Not available 11/19/2024 14:41:59 11/19/2024 11/19/2024 Recommendations: Follow up with referring provider. juan Not available 11/19/2024 14:00:27 Plan of Treatment Reminders Order Date Submit Date Provider Last Modified By Organization Details Last Modified Time Details Appointments TY Initial Fitting 2024 03:00P M ROMAINE FAJARDO, AUD Not available Not available Not available Lab [...] Address Organization Details Recorded Time Traumatic hematoma 909969727 Active 2023 KATHERINE DAVID MD [address] [place] [address], [place], [phone], [facility] 15:47:27 Bilateral earache 372387657 Active 2023 KATHERINE DAVID MD [address] [place] [address], [place], [phone], [facility] 4 15:47:38 Sensorineural hearing loss of bilateral ears 444100196 Active 2024 AIMEE FISHER [place], [facility] [address] [place] [address], [phone], [facility] 5 14:01:08 Problem Notes None recorded. Procedures Surgical History Date Name Laterality Status Provider Name and Address Organization Details Recorded Time 11/19/2024 Comp Audio with Tymps (01539 & 16616) completed AIMEE FISHER MA, CCC-A [address] [facility],[address], [address], [facility] - [facility] 11/19/2024 14:03:40 08/19/2024 FOL_DP completed KATHERINE DAVID MD [address] [place] [address], [place], [address], [facility] - [facility] 08/19/2024 15:46:31 Imaging Results Imaging Date Name Status LastModified by Organiz ation Details LastModified Time 11/20/2024 audiogram completed BARCODE Information no t available 11/20/2024 09:41:00 Procedure Notes None recorded. Medical Equipment None [...] Not Available No t Available amoxicillin 500 mg-rolandou m clavulanate 125 mg tablet TAKE 1 [...] Available Vitals Date Recorded Body height Body mass index (BMI) Body weight Provider Name and Address Organization Details Last Updated DateTime 08/19/2024 172.72 cm 26.6 kg/m2 75926.66 g Elizabeth Pinto [place] - [facility] 08/19/2024 15:30:53 Date Recorded Body height Body weight Provider Name and Address Organization Details Last Updated DateTime 11/19/2024 172.72 cm 77462.66 g Verónica Sauer [place] - [facility] 11/19/2024 14:21:46 Social History None recorded. Functional Status None recorded. Mental Status None recorded. Family History Nothing Reported. Medical History Condition Response Allergies/Hayfever N Heart Problems Y Anxiety N Emphysema N Migraines N Thyroid Problems N Glaucoma N Depression N COPD N Developmental Delay N Nasal or Sinus Problems N Anemia N Anesthesia Complications N Heart Attack ([place]) N Other Skin Condition N Diabetes Y Rhinitis N Bleeding Disorder N Food Allergy N Arthritis Y Hearing Loss N Hyperlipidemia N Cancer N Stroke Y Dementia N Nasal polyps Y Asthma N Sleep Disorder N GERD/Reflux Y High Cholesterol Y Liver Disease N Headaches N Fibromyalgia N Hypertension Y Speech Delay N Kidney Disease Y Past Encounters Encounter ID Performer Location Encounter Start Date Encounter Closed Date Diagnosis/Indication Diagnosis SNOMED-CT Code Diagnosis ICD10 Code Diagnosis Note [id number] KATHERINE DAVID MD [facility] [address] [address] 08/19/2024 15:06:20 08/19/2024 16:00:27 Traumatic hematoma 230735377 T14.8XXA Bilateral earache 512613 003 H92.03 [id number] KATHERINE DAVID MD [facility] [address] [place] [address] 11/19/2024 13:15:30 11/19/2024 14:45:11 Sensorineural hearing loss of bilateral ears 714697097 H90.3 [id number] AIMEE FISHER MA, CCC-A [facility] [address] [place] [address] 11/19/2024 13:59:56 11/24/2024 03:58:53 Sensorineural hearing loss of bilateral ears 502800875 H90.3 Audiologic al evaluation results: Right ear: [...] by Organization Details LastModified Time None Recorded Advance Directives Directive None Recorded Payers Encounter Date Sequence Insurance Name Policy Number Policy Cannon Covered Member ID Cannon Member ID Guarantor Name 08/19/2024 1 [place] [employer] Dago Chio Judy [id number] Dago Judy 11/19/2024 2 [place] [id number] Patricia Vadim [id number] Dago Judy 11/19/2024 1 [place] [facility] G[place]MENT SERVICES Dago J Judy [id number] Dago Judy 11/19/2024 2 [place] [id number] Patricia Vadim [id number] Dago Judy 11/19/2024 1 [place] [employer] Dago J Judy [id number] 4 Dago Judy Notes Date Note Type Note Provider Name and Address Organization Details Recorded Time 08/19/2024 text/html Dr Youngblood (GI) referraltongue pigmentationnoted incidentally on posterior tongue during EGDdysphagiaba swallow, [facility] - esophageal dysmotilityno hemoptysistobacco- former stopped 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 KATHERINE DAVID MD [address] [place] [address], [phone], [facility] - [facility] 08/19/2024 15:53:55 11/19/2024 text/html Longstanding hea ring loss AIMEE FISHER [place], CCC-A [address] [place] [address], [phone], [facility] - [facility] 11/19/2024 14:04:01 11/19/2024 text/html hearing loss PV 08/19/24 Rashard tongue pigmentation eval, normal FOL. B otalgia likely referred pain. 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 KATHERINE DAVID MD [address] [place] [address], [place], [phone], [facility] - [facility] 11/19/2024 14:42:17
--- OUTSIDE RECORDS SUMMARY | 2024-12-01 15:54 | XMS_ITS | Clinical Summary ---
Author Organization [facility] Address [phone] [facility] [place] [address] Care Team Providers Care Agricultural Research Engineer Name Role Phone Lucita Way MD Unavailable Lucita Way MD Primary Care Provider [phone] Chloe Patel RN Unavailable [email or web address] Allergies Active Allergy Reactions Criticality Noted Date Comments Clindamycin Hcl High 07/15/2020 Other reaction(s): Severe heartburn Diltiazem 04/17/2010 Do not rememmbered Metformin (Bulk) 06/04/2012 Diarrhea. Switched to metformin ER Medications Medication Sig Dispensed Refills Start Date End Date Status amitriptyline (ELAVIL) 25 MG tablet Take 25 mg by mouth nightly at bedtime. Active famotidine (PEPCID) 20 MG tablet Take 20 mg by mouth 2 (two) times a day. Active torsemide (DEMADEX) 20 MG tablet Take 80 mg by mouth. 04/15/2023 Active cyanocobalamin, vitamin B-12, 1000 MCG tablet Take 1,000 mcg by mouth. Active apixaban (ELIQUIS) 5 mg tablet Take 5 mg by mouth 2 (two) times a day. 12/14/2022 Active amiodarone (PACERONE) 200 MG tablet Take 200 mg by mouth. 06/04/2022 Active Bacillus coagulans-inulin (PROBIOTIC FORMULA, INULIN,) 1 billion-250 cell-mg Cap Take by mouth. 12/12/2022 Active isosorbide mononitrate (IMDUR) 30 MG 24 hr tablet Take 30 mg by mouth every morning. 07/26/2023 Active hydrALAZINE (APRESOLINE) 10 MG tablet TAKE 1 TABLET BY MOUTH THREE TIMES DAILY AFTER A MEAL Active amLODIPine (NORVASC) 10 MG tablet Take 10 mg by mouth daily. Active clobetasol (TEMOVATE) 0.05 % ointment Apply topically 2 (two) times a day. 60 g 2 12/17/2023 Active potassium chloride (MICRO-K) 10 mEq CR capsule Take 10 mEq by mouth. 02/10/2024 Active metOLazone (ZAROXOLYN) 2.5 MG tablet 06/09/2024 Active fluticasone propionate (FLONASE) 50 mcg/actuation nasal spray 50 mcg by Nasal route. 04/28/2024 Active azelaic acid (FINACEA) 15 % gelIndications:Ot her rosacea Apply to affected areas of face twice daily. 50 g 11 08/18/2024 Active metroNIDAZOLE (METROCREAM) 0.75 % creamIndications: Other rosacea Apply topically 2 (two) times a day. 45 g 2 08/18/2024 Active fluticasone propionate (FLONASE) 50 mcg/actuation nasal spray Use 2 spray(s) in each nostril once daily 16 g 08/24/2024 Active levothyroxine (SYNTHROID, LEVOTHROID) 100 MCG tabletIndications :Hypothyroidism due to medication TAKE 1 TABLET BY MOUTH ONCE DAILY IN THE MORNING 30 tablet 11/13/2024 Active doxepin (SINEQUAN) 10 MG capsule TAKE 1 CAPSULE BY MOUTH NIGHTLY AT BEDTIME 30 capsule 11/30/2024 Active doxepin (SINEQUAN) 10 MG capsule Take 1 capsule (10 mg total) by mouth nightly at bedtime. 30 capsule 5 05/12/2024 5 Discontinued levothyroxine (SYNTHROID, LEVOTHROID) 100 MCG tabletIndications :Hypothyroidism due to medication TAKE 1 TABLET BY MOUTH ONCE DAILY IN THE MORNING 30 tablet 10/26/2024 5 Discontinued doxepin (SINEQUAN) 10 MG capsule TAKE 1 CAPSULE BY MOUTH NIGHTLY AT BEDTIME 30 capsule 11/03/2024 5 Discontinued Active Problems Patient Care Coordination No te Formatting of this note migh t be different from the original. Patient is high risk for these reasons: pacemaker, Diastolic HF with preserved EF- s/p cardiomems implantation on 05/17/23, DM; CKD V Living Situation: Lives in single family home with in [place], [place] Functional Status (ADL's/iADLs): Independent with ADLs/ IADLs, drives Family/Social Supports: supportive Efrain Goals of Care (HCP/Molst): Full Code (06/05/23); HCP- Efrain Fierro () [phone] Is this patient appropriate for the Serious Illness Conversation? no Community Supports (e.g. VNA, DME Vendors, Elder Services): cardiac rehab Transportation: drives and also drives Medication Management System/Specialized Pharmacy Needs: self Financial Concerns: not in general but does have difficulty affording some recommended medications Other Supports and Care Needs: Followed by a program instructor at [facility] and gradually transitioning to specialists as well as PCP in the [place] area but currently Dr. Way as his primary care provider. Recooperer is Dr. Mena at [facility]; Dr Crawford is HF specialist at [facility].. Frequently hospitalized at [facility] and [facility]. PCP : Dr. Dimple Way Dispatcher Clerk:Dr. Fontenot also rec outpatient PFT and sleep study. HEART Failure- Dr. Granados. GI: Dr. Dr Estefany Youngblood ([facility], [address], [address], [place] [address] --- [phone]). Ophthalm: Dr. Hannah GARZON, Recooperer: Nephro: Dr Merritt Daugherty ([facility] [address] [place] [address], [address], [place] [address] --- [phone]). Dermatology: Dr. Alexander. Problem Noted Date Diagnosed Date Chronic cough 06/10/2024 CKD (chronic kidney disease) stage 4, GFR 15-29 ml/min 06/04/2024 Type 2 diabetes mellitus wit h stage 4 chronic kidney disease, without long-term current use of insulin 06/04/2024 Mixed hyperlipidemia 06/04/2024 Ear ache 12/11/2023 Chronic nasal congestion 12/11/2023 PND (post-nasal drip) 12/11/2023 Acute on chronic combined sy stolic and diastolic congestive heart failure 12/05/2023 Interstitial pulmonary disease, unspecified 07/21 Crohn's disease of small intestine with complica tion 08/07/2023 Constipation 08/07/2023 Paresthesia 08/05/2023 Elevated blood pressure reading 08/05/2023 Hypokalemia 08/05/2023 CKD (chronic kidney disease) stage 5, GFR 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 ml/min 06/05/2023 Chronic congestive heart failure 05/30/2023 History of ventricular tachycardia 05/30/2023 Current use of moth exterminator anticoagulation 023 Microalbuminuria due to type 2 diabetes mellitus 05/30/2023 History of cerebellar stroke 05/30/2023 History of SCC (squamous cell carcinoma) of skin 05/30/2023 Macrocytosis 05/30/2023 Hypothyroidism due to medication 05/30/2023 Sleep disturbance 05/30/2023 Hyperkalemia 05/30/2023 Advance care planning 05/30/2023 Overview (05/30/2023): 11/11/19, HCP-EFRAIN FIERRO. 06/15/19, MOLST-ATTEMPT RESUSCITATION, INTUBATE AND VENTILATE, USE NON-INVASIVE VENTILATION, TRANSFER TO HOSPITAL, USE DIALYSIS, USE ARTIFICIAL NUTRITION, USE ARTIFICIAL HYDRATION. Sensorineural hearing loss (SNHL) 01/29/2023 05/30/2023 Heart failure with normal ejection fraction 12/2005/30/2023 WILLIE (obstructive sleep apnea) 10/31/2022 Daytime sleepiness 06/05/2022 05/30/2023 Dysphagia 12/21/2021 05/30/2023 Hypothyroidism 11/22/2021 05/30/2023 Increased prostate specific antigen (PSA) veloci ty 11/22/2021 05/30/2023 Microalbuminuria 11/22/2021 05/30/2023 AICD (automatic cardioverter/defibrillator) pres ent 08/28/2021 05/30/2023 Chronic diastolic heart failure 08/28/2021 05/30/2023 Actinic keratosis 07/27/2021 05/30/2023 Actinic elastosis 07/27/2021 05/30/2023 Other rosacea 07/27/2021 05/30/2023 Pacemaker 07/16/2021 05/30/2023 Atrial fibrillation 04/13/2021 05/30/2023 Hypertensive heart disease without heart failure 04/11/2021 05/30/2023 moth exterminator current use of oral hypoglycemic drug 04/11/2021 Hesitancy of micturition 11/16/2020 023 Melanocytic nevi of trunk 12/31/20182022 Diabetic neuropathy 10/30/2018 05/30/2023 Diverticulosis of large intestine without hemorr clarissa 08/29/2017 04/02/2023 Overview (04/02/2023): 08/22/17, Dr. Morgan, [facility], pathology neg. Repeat in 5 year. Int. hemorrhoid and sig+gen diverticulosis. Diverticulosis of large inte justin without perforation or abscess without bleeding 08/29/2017 05/30/2023 Overview (05/30/2023): 08/22/17, Dr. Morgan, [facility], pathology neg. Repeat in 5 year. Int. hemorrhoid and sig+gen diverticulosis. Diabetic nephropathy associa aubree with type 2 diabetes mellitus 01/27/2016 04/02/2023 Granulomatous mastitis 09/27/2015 3 SOB (shortness of breath) 08/08/20152022 Overview (04/02/2023): 07/05/2015, Dr. Knapp: sched PFT is neg, methacholine challenge. 07/26/2015, Dr. Knapp: NL PFT Abnormal ultrasound of abdomen 03/07/2015 0 04/02/2023 Overview (04/02/2023): 02/21/2015, Dr. Morgan: L 5 mm GB polyp, fatty liver, 0.7 cm L hepatic cyst. 2 cm R hepatic cyst Bilateral renal cyst. 1.2 cm avasvcular hypoecoid structure in pancreatic body, may have been present previously. US in 6 months is rec. Polyp, sinus maxillary 10/05/2014 Overview (04/02/2023): 09/22/2014, Endoscopic R middle meatus antrotomy with navigation, Dr. Fernandes. Nasal polyp 07/01/2014 05/30/2023 Polyneuropathy, diabetic 05/13/2012 023 Stroke (cerebrum) 10/02/2011 04/02/2023 Overview (04/02/2023): 10/02/2011, presented with vertigo and diplopia. MRI showed L inf cerebellar hemisphere stroke, likely L post inf cerebellar artery. Carotid duplex NL. 05/13/2012, cont aggrenox. 01/07/2015, Dr. Mo: cont aggrenox BID. FU in 6 m. 06/30/2015, Dr. Mo: cont current Tx. Former smoker 05/28/2011 04/02/2023 Overview (04/02/2023): Quit in 1993 Gastroesophageal reflux disease without esophagi tis 05/28/2011 04/02/2023 Overview (04/02/2023): Takes ranitidine. Dr. Morgan. 06/30/2001, EGD mild chronic gastritis. HP neg. 07/14/2012, EGD, Dr. Mogran: mild to moderate erosive antritis C/W aggrenox [...] omeprazole. No specific recall. Benign prostatic hyperplasia with lower urinary tract symptoms 07/19/2010 04/02/2023 Overview (04/02/2023): 06/30, Dr. Garza Non-ischemic cardiomyopathy 04/17/201003/21 Overview (04/02/2023): 08/2008, Unclear etiology. EF=45% from 55% in 2005. ETT with poor capacity with no change from abnormal baseline. Changed from Atenolol to carvedilol. CP resolved. Dr. Pelaez following. Sees him every year. Cath in [...] patient has been refusing. He stated Dr. Pelaez and Dr. Funk are not worried. He [...] event is 50%. I disagree with Dr. Pelaez and Dr. Funk if this is what they've decided. -Patient is adamant in not taking statins. He would not take it. 10/29/16, Dr. Pelaez, echo:CELESTINE, LAE, mildly reduced LV and normal RV systolic function, LV diastolic dysfunction, mild aortic and mitral and tricuspid regurg, mild pulmonary hypertension. No antibiotic prophylaxis isn't needed. Chest pain 04/17/2010 04/02/2023 Overview (04/02/2023): 2001, cath NL. Syndrome X. Cp resolved after started on carvedilol in 2004. Renal cyst 04/17/2010 04/02/2023 Overview (04/02/2023): 11/30, CT bilateral cyst. Some mildly complex. 06/30, Dr. Garza. FU US in 1 year. If unchanged, no further work up is needed. 07/02/2011, renal US, increase size of R renal pole cyst, other bilateral renal cysts are stable. Dr. Garza. 02/21/2015, [facility] US, Dr. Morgan There are multiple bilateral renal [...] Pt is discharged by Dr. Garza. 02/21/2015, [facility] US, Dr. Morgan There are multiple bilateral renal [...] body habitus. -he is discharged by Dr. Garza. Crohn's disease with complication 04/17/2010 04/02/2023 Overview (04/02/2023): Dr. Morgan. CLS-06/30/2001, colonic mucosa displaying focal congestion in lamina propria CLS-07/07/2009, inflammatory polyp with focal lymphoid hyperplasia. [facility]-07/14/2012, well controlled colitis. And patent anastomosis from prior sigmoid resection. Mild diverticulosis, int. Hemorrhoids. Mild inflammation of the IC valve C/W known Crohn's. 06/28/2013, ED/EH, colitis flare-up. Switch from SULFASALAZINE to mesalamine. Tx with prednisone, started at 40 mg. 08/22/17, Dr. Morgan, [facility], pathology neg. Repeat in 5 year. Int. hemorrhoid and sig+gen diverticulosis. Based on record review by Electronics Technician Apprentice and clinical documentation. [facility] Gastro/Dr Morgan office visit 03/13/17, Impression: Crohn's enteritis and colitis, stable. Essential hypertension 04/17/2010 3 Hypertriglyceridemia 04/17/2010 04/02/2023 Overview (04/02/2023): 03/29, switched from lovastatin(not effective at 80mg) to pravachol. Niacin was stopped in 2009. 04/06/2013, pt states stopped atorvastatin 40 mg. 06/22/2014, the pt has HTN, metabolic syndrome, DM and H/O CVA, the goal is to keep LDL < 70 according to rec. From [employer] [employer]. -pt reports that Dr. Pelaez felt his lipid is well controlled, no need for increasing atorvastatin. -his 3 G also needs to be treated, I rec fenofibrate. -the pt wants to wait for Dr. Morgan's decision. 02/16/2015, declined increasing, states Dr. Pelaez is happy with his lipid readings. 03/29/2015, [...] patient has been refusing. He stated Dr. Pelaez and Dr. Funk are not worried. He [...] event is 50%. I disagree with Dr. Pelaez and Dr. Funk if this is what they've decided. -Patient is adamant in not taking statins. He would not take it. LVH (left ventricular hypertrophy) 04/17/2010 04/02/2023 Metabolic syndrome 04/17/2010 04/02/2023 Overview (04/02/2023): 2002, clean cath. Nummular eczema 04/17/2010 04/02/2023 Overview (04/02/2023): clobetasol Type 2 diabetes mellitus wit h hyperglycemia, without long-term current use of insulin 04/17/2010 04/02/2023 Overview (04/02/2023): 09/27, no FH Aneurysm of visceral artery 12/12/200905/21 Dyslipidemia 07/19/2008 05/30/2023 Unspecified glaucoma 07/25/2006 05/30/2023 Resolved Problems Problem Noted Date Diagnosed Date Resolved Date Stage 3b chronic kidney disease 09/27/2015 3 06/05/2023 Overview (04/02/2023): 04/30/2018, referred to Dr. Sanchez. 06/26/18, Dr. [...] today (not fasting, well hydrated, not sick) Encounters Date Type Department Care Team Description 12/01/2024 Orders Only [facility] [place] [address] [place] [address] MD 12/01/2024 Orders Only [facility] [place] [address] [place] [address] Candy Fontanez MD 11/30/2024 Refill [facility] [address] [place] [address] MD Medication Refill 11/26/[address] [facility], [facility] Care Management [address] [place] [address] Celi Starr [facility] 11/26/[address] [facility], [facility] Care Management [address] [place] [address] Chloe Patel, CELINA Care Coordination (Routine follow up) 11/13/2024 Refill [facility] [address] [place] [address] MD Medication Refill 11/03/2024 Refill [facility] [address] [place] [address] MD Medication Refill 10/27/2024 4:00 PM EST Office Visit [facility], [address] [facility] [address] [place] [address] Ann Finn CNP Dermographism (Primary Dx) 10/25/2024 Refill [facility] [address] [place] [address] MD Medication Refill 10/23/[address] [facility], [facility]. Care Management [address] [place] [address] Chloe Patel, CELINA Care Coordination (Routine follow up) from Last 3 Months Immunizations Name Administration Dates Next Due COVID-19 (Pre-08/12) Pfizer Vaccine, mRNA, PF 08/02/2021,08/01/2021,12/23/2020,12/02 COVID-19 Pfizer Comirnaty Vaccine 12+ 07/10/2024 [id number] FORMULATION 12/12/2009 Influenza High-Dose Quadriva lent Preservative Free IM 07/10/2024,08/12/2022,07/25/2021,08/12 Influenza High-Dose Trivalen t Preservative Free IM 08/12/2022,08/21/2020,11/11/2019,08/12,08/19/2017,10/03/2016,09/27/2015 ,09/13/2014 Influenza Quadrivalent Adjuv anted Preservative Free IM 09/05/2023 Influenza Trivalent Preserva tive Free IM 09/11/2013,09/09/2012 Influenza Trivalent w/ Preservative IM 1 ,08/12/2020,11/11/2019,08/12,08/19/2017,10/03/2016,09/27/2015 ,09/13/2014,09/11/2013,09/09/2012 Influenza, Unspecified Formulation 09/11,09/11/2013,09/09/2012,08/04,09/10/2003 Pneumococcal conjugate PCV13 05/06/2015 Pneumococcal polysaccharide PPSV23 03/20/2017,,03/22/2009 RSV Vaccine (monovalent, adjuvanted) 09/10/2024 Td (adult) 5 Lf Tetanus Toxo id, PF, Adsorbed 12/11/2023 Td, unspecified formulation 08/10/2005 Tdap 09/13/2014 Tetanus toxoid, adsorbed 08/10/2005 Zoster live 06/22/2019,04/09/2019,09/19/2009 Zoster recombinant 06/22/2019,04/09/2019 Social History Tobacco Use Types Packs/Day Years Used Date Smoking Tobacco: Former Smokeless Tobacco: Never Tobacco Cessation:Counseling Given: Not Answered Alcohol Use Standard Drinks/Week Comments Yes 0 [...] Sign Reading Time Taken Comments Blood Pressure 140/76 06/10/2024 2:04 PM EDT Pulse 59 06/10/2024 2:04 PM EDT Temperature 36.6 ??C (97.9 ??F) 06/10/2024 2:04 PM ED T Respiratory Rate - - Oxygen Saturation 99% 06/10/2024 2:04 PM EDT Inhaled Oxygen Concentration - - Weight 78.9 kg (174 lb) 06/10/2024 2:04 PM EDT Height 170.2 cm (5' 7 ) 12/11/2023 2:08 PM EST Body Mass Index 27.25 12/11/2023 2:08 PM EST Plan of Treatment Upcoming Encounters Date Type Department Care Team (Late st Contact Info) Description 12/16/2024 2:20 PM EST Appointment [facility] [place] [address] [place] [address] MD [address] [place] [address] 08/17/2025 1:40 PM EDT [facility] [address] [place] [address] Isabel Alexander MD [address] [place] [address] Health Maintenance Due Date Last Done Comments SMOKING Hx and SMOKELESS TOBACCO SCREENING 1958 DIABETIC EYE EXAM 04/02/2023 BLOOD PRESSURE 12/11/2024 06/10/2024 DEPRESSION SCREENING 12/11/2024 12/11/2023 HEMOGLOBIN A1C 05/27/2025 11/27/2024, 11/21, 12/04/2023, Additional history exists CREATININE LEVEL 11/13/2025 11/13/2024, , 06/01/2024, Additional history exists ALT LEVEL (ALANINE AMINOTRANSFERASE) 11/27/2025 11/27/2024, 12/04/2023, 07/03/2021 LIPID PANEL 11/27/2025 11/27/2024, 04/2025, 11/27/2024, Additional history exists POTASSIUM LEVEL 11/27/2025 11/27/2024, 12/04/2023 TSH LEVEL 11/27/2025 11/27/2024, 10/22, 06/03/2024, Additional history exists Adult Td,Tdap Booster 12/11/2033 12/11/2023 , 09/13/2014, 08/10/2005, Additional history exists PNEUMOCOCCAL VACCINES (50+ years) Completed 03/20/2017, 05/06/2015, 04/11/2009, Additional history exists ZOSTER VACCINES Completed 06/22/2019, 11/2018, 04/09/2019, Additional history exists HEPATITIS C SCREENING Completed 11/04/2019 COVID-19 VACCINE Completed 07/10/2024, , 10/09/2022, Additional history exists INFLUENZA VACCINE Completed 07/10/2024, , 08/12/2022, Additional history exists RSV VACCINE Completed 09/10/2024 HEPATITIS B SCREENING Completed 11/16/2024 HEPATITIS A VACCINES Aged Out No long er eligible based on patient's age to complete this topic HEPATITIS B VACCINES Aged Out No long er eligible based on patient's age to complete this topic HIB VACCINES Aged Out No longer eligi ble based on patient's age to complete this topic MENINGOCOCCAL VACCINES (ACWY) Aged Out No longer eligible based on patient's age to complete this topic Medical Devices Not on file Procedures Procedure Name Priority Date/Time Associated Diagnosis Comments OUTSIDE LAB Routine 12/01/2024 9:42 AM EST OUTSIDE POTASSIUM LEVEL Routine 11/27/2024 OUTSIDE HEMOGLOBIN A1C Routine 11/27/2024 OUTSIDE LDL Routine 11/27/2024 OUTSIDE TSH LEVEL Routine 11/27/2024 OUTSIDE ALT LEVEL Routine 11/27/2024 OUTSIDE TOTAL CHOLESTEROL Routine 11/27/2024 OUTSIDE ALKALINE PHSOPHATASE LEVEL Routine 11/27/2024 OUTSIDE GLUCOSE FASTING Routine 11/27/2024 OUTSIDE HDL Routine 11/27/2024 OUTSIDE TRIGLYCERIDES Routine 11/27/2024 OUTSIDE SERUM CREATININE LEVEL Routine 06/03/2024 from Last 3 Months or Most Recently Relevant to Health Maintenance Results * Outside Lab (12/01/2024 9:42 AM EST) Historical Provider MD LAB BLOOD ORDERAB LES * (ABNORMAL) Outside Triglycerides (11/27/2024) Triglycerides - External 221(A) 35 - 150 mg/dL Historical Provider MD LAB BLOOD ORDERAB LES * Outside TSH Level (11/27/2024) TSH - External 0.812 0.5 - 5 uIU/L Historical Provider MD LAB BLOOD ORDERAB LES * Outside Potassium Level (11/27/2024) Potassium level - External 3.8 3.4 - 5.0 mmol/L Historical Provider MD LAB BLOOD ORDERAB LES * Outside HbA1c (11/27/2024) Hemoglobin A1c - External 6.1 % Historical Provider MD LAB BLOOD ORDERAB LES * Outside LDL (11/27/2024) LDL - External 161 50 - 250 mg/dL Historical Provider MD LAB BLOOD ORDERAB LES * (ABNORMAL) Outside Glucose,Fasting (11/27/2024) Glucose, fasting - External 162(A) 65 - 99 mg/dL Historical Provider MD LAB BLOOD ORDERAB LES * Outside ALT Level (11/27/2024) ALT - External 9 5 - 30 U/L Historical Provider MD LAB BLOOD ORDERAB LES * (ABNORMAL) Outside Total Cholesterol (11/27/2024) Cholesterol, total - External 245(A) 200 mg/dL Historical Provider MD LAB BLOOD ORDERAB LES * (ABNORMAL) Outside Alkaline Phosphatase Level (11/27/2024) ALKALINE PHOSPHATE LEVEL - EXTERNAL 151(A) 50 - 100 U/L Historical Provider MD LAB BLOOD ORDERAB LES * Outside HDL (11/27/2024) HDL - External 43 40 - 80 mg/dL Historical Provider MD LAB BLOOD ORDERAB LES * (ABNORMAL) Outside Serum Creatinine Level (06/03/2024) Creatinine, serum - External 4.06(A) 0.8 - 1.3 mg/dL Historical Provider MD LAB BLOOD ORDERAB LES from Last 3 Months or Most Recently Relevant to Health Maintenance Advance Directives * Full Code (Latest Code Status on File) Date Activated Date Inactivated Comments 06/05/2023 1:10 PM Question Answer Comments Code Status Confirmed With: Patient Code Status Communicated To: PCP Code Discussion Comments: 06/15/19, MOLST -ATTEMPT RESUSCITATION, INTUBATE AND VENTILATE, USE NON-INVASIVE VENTILATION, TRANSFER TO HOSPITAL, USE DIALYSIS, USE ARTIFICIAL NUTRITION, USE ARTIFICIAL HYDRATION. Care Teams Agricultural Research Engineer Relationship Specialty Start Date End Date Lucita Way MD [address] [place] [address] PCP - General Internal Medicine 11/23/[address] MD [address] [place] [address] Insurance Assigned Provider 01/25/24 Chloe Patel, CELINA [address] [place] [address] [address] [place] [address] [email or web address] Flask Pusher 08/24/22 Additional Source Comments The information contained in this document represents components of the legal health record. It is not the complete legal health record.[facility]
--- OUTSIDE RECORDS SUMMARY | 2024-12-01 15:54 | XMS_ITS | Continuity of Care Document ---
Author Organization [place] - [facility], [facility] Address [address] [place] [address] Care Team Providers Care Contact And Service Clerks Supervisor Name Role Phone KELLY COLEMAN Primary Care Provider Assessment Encounter Date Assessment Date Assessment LastModified by Organization Details LastModified Time 11/19/2024 11/19/2024 Patient's audiogram shows bilateral moderate [...] amplification bilaterally. [email or web address] Not available 11/19/2024 14:41:59 Plan of Treatment Reminders Order Date Submit [...] Address Organization Details Recorded Time Traumatic hematoma [id number] Active 2023 KATHERINE DAVID MD [address], [address], [facility] - [facility] [place] 4 15:47:27 Bilateral earache [id number] Active 2023 KATHERINE DAVID MD [address] [address], [place], [address], [facility] - [facility] 4 15:47:38 Sensorineural hearing loss of bilateral ears [id number] Active 2024 AIMEE FISHER [place], [facility]A [address] [facility],[place] [address], [place], [address], [facility] 5 14:01:08 Problem Notes None recorded. Procedures Surgical History Date Name Laterality Status Provider Name and Address Organization Details Recorded Time 11/19/2024 Comp Audio with Tymps (29772 & 40976) completed AIMEE FISHER MA, [facility],[place] [address], [place], [address], [facility] 11/19/2024 14:03:40 08/19/2024 FOL_DP completed KATHERINE DAVID MD [address] [place] [address], [place], [address], [facility] 08/19/2024 15:46:31 Imaging Results None recorded. [...] Details Last Updated DateTime 11/19/2024 172.72 cm 16868.66 g Verónica Sauer [place] - [facility] 11/19/2024 14:21:46 Social History None recorded. Functional Status None recorded. Mental Status None recorded. Family History Nothing Reported. Medical History Condition Response Allergies/Hayfever N Heart Problems Y Anxiety N Emphysema N Migraines N Thyroid Problems N Developmental Delay N Glaucoma N Depression N COPD N Nasal or Sinus Problems N Anemia N Anesthesia Complications N Heart Attack (ND) N Other Skin Condition N Diabetes Y Rhinitis N Bleeding Disorder N Food Allergy N Arthritis Y Hearing Loss N Hyperlipidemia N Cancer N Stroke Y Dementia N Nasal polyps Y Asthma N High Cholesterol Y Sleep Disorder N GERD/Reflux Y Liver Disease N Headaches N Fibromyalgia N Hypertension Y Speech Delay N Kidney Disease Y Past Encounters Encounter ID Performer Location Encounter Start Date Encounter Closed Date Diagnosis/Indication Diagnosis SNOMED-CT Code Diagnosis ICD10 Code Diagnosis Note [id number] KATHERINE DAVID MD [facility] [address] [address] 11/19/2024 13:15:30 11/19/2024 14:45:11 Sensorineural hearing loss of bilateral ears [id number] H90.3 [id number] AIMEE FISHER MA, CCC-A [facility] [address] [address] 11/19/2024 13:59:56 11/24/2024 03:58:53 Sensorineural hearing loss of bilateral ears [id number] H90.3 Audiologic al evaluation results: Right ear: [...] Cannon Member ID Guarantor Name 11/19/2024 2 [facility]: [employer]UE [employer] BLUE [employer]IELD [id number] Patricia Fierro [id number] Dago Kim 11/19/2024 1 MEDICARE B-[place]: [employer] Dago Kim [id number] Dago Kim Notes Date Note Type Note Provider Name and Address Organization Details Recorded Time 11/19/2024 text/html Longstanding hearing loss AIMEE FISHER MA, CCC-A [address] [place] [address], [phone], [place] [facility] 11/19/2024 14:04:01 11/19/2024 text/html hearing loss PV 08/19/24 Rashard tongue pigmentation eval, normal FOL. B otalgia likely referred pain. 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 KATHERINE DAVID MD [address] [place] [address], [phone], [facility] - [facility] 11/19/2024 14:42:17
== END 2024-12-01 15:52 | disposition home or self-care (01) ==
PROVIDERS: PCP Internal Medicine; Visit Provider Internal Medicine Nephrology
DX: N18.5 Chronic kidney disease, stage 5 (principal); D63.1 Anemia in chronic kidney disease; I12.0 Hypertensive chronic kidney disease with stage 5 chronic kidney disease or end stage renal disease
CPT/HCPCS: 99214

== ENCOUNTER → 2024-12-01 15:03 | Outpatient (BNVA) | payer MEDICARE, BC, SELFPAY | PROVIDERS: PCP Internal Medicine; Visit Provider Internal Medicine Nephrology | DX: E11.22 Type 2 diabetes mellitus with diabetic chronic kidney disease (principal); I12.0 Hypertensive chronic kidney disease with stage 5 chronic kidney disease or end stage renal disease; N18.5 Chronic kidney disease, stage 5; D63.1 Anemia in chronic kidney disease | CPT/HCPCS: 99212 ==

== ENCOUNTER 2025-01-26 14:18 | Outpatient (AMB) | payer MEDICARE, BC, SELFPAY ==
--- NOTE | 2025-01-26 14:34 | HO.NEPHOV ---
Vital Signs 01/26/25 14:35 Height 5 ft 8 in Weight 181 lb 4 oz BMI 27.6 BP 130/62 Blood Pressure Location Lt brachial Position Sitting Pulse 53 Pulse Source Pulse Oximeter Pulse Oximetry (%) 98 Oxygen Delivery Method Room Air Intake Visit Reasons: 2mon follow-up w/l[employer] Warehouse Logistics Coordinator Required: No Accompanied by: Self / Same As Patient Allergies Penicillins Allergy (Verified 01/26/25 14:35) Unknown HPI Comments Details: Dago is a 79 year old gentleman with advanced CKD in the setting of HF pEF and hypertrophic [employer] AD[employer] , type II DM, crohn's disease on sulfasalazine for many years and HTN. He has H/O no significant proteinuria and has a bland UA. Etiology of his CKD has been unclear with ddx possibilities including prior SHAAN with incomplete recovery, AIN associated with crohn's or sulfasalazine, nonproteinuric DKD, nephrosclerosis, and CRS. Despite optimization of his volume status using the cardiomems device his creatinine has remained at about 3.8-4 mg/dl which is 4.2 recently. He had been having intermittent low BP's. He is not uremic. He tells me that since starting isosorbide, he has had a significant improvement in his SOB and endurance. He has been off of sulfasalazine and his crohn's is quiescent.He went for modality education in the past and is planning for in-center and later eventually home HD. He undertook venous mapping and needs to have the AVF placed when the timing is right. His last eGFR was close to 14 cc/min which has worsened to 11 mls/mt . He has seen Dr. Aiken who suggested an AV graft when he gets close to initiation of renal replacement.His GFR had been fluctuant based on the dose of diuretics he takes( adjusted by Dr Granados) [facility] Medical History (Updated 12/16/23 @ 13:10 by Merritt Daugherty MD) Type 2 diabetes mellitus Congestive heart failure Hypertension Chronic kidney disease Surgical History S/P placement of cardiac pacemaker S/P rotator cuff repair History of appendectomy History of colectomy History of hip replacement Social History Alcohol intake: never Patient Tobacco Use Status: Former Tobacco user Review of Systems Const All systems reviewed & are unremarkable except as noted in HPI and below Physical Exam Vital Signs: Last Vital Signs Pulse 53 01/26/25 14:35 BP 130/62 01/26/25 14:35 Pulse Ox 98 01/26/25 14:35 Oxygen Delivery Method Room Air 01/26/25 14:35 BMI result Body Mass Index 27.6 Const General: comfortable and no acute distress Orientation/consciousness: patient oriented x3 HEENT Head: Yes normocephalic Mouth: Normal oral and palatal mucosa present Eyes EOM: EOMs intact bilaterally Neck Neck: Yes supple Resp Auscultation: clear to auscultation bilaterally Cardio Jugular venous distension: no JVD Rate: regular rate GI Palpation (GI): Soft to palpation Auscultation: normal bowel sounds General: Yes no CVA tenderness Back/Spine/Pelvis Back: no CVA tenderness Skin General skin exam: no rashes or lesions noted Neuro General: patient oriented x3 and moves all extremities Extrem General: Yes no pedal edema Results Reviewed Nephrology Results: No Data to Display Assessment & Plan Assessment & Plan (1) CKD (chronic kidney disease) stage 5, GFR 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 ml/min: Code(s): N18.5 - Chronic kidney disease, stage 5 Category: Medical (2) Anemia in chronic kidney disease (CKD): Code(s): N18.9 - Chronic kidney disease, unspecified; D63.1 - Anemia in chronic kidney disease Category: Medical Qualifiers: Chronic kidney disease stage: stage 5, not on chronic dialysis Qualified Code(s): N18.5 - Chronic kidney disease, stage 5; D63.1 - Anemia in chronic kidney disease (3) Hypertension: Code(s): I10 - Essential (primary) hypertension Category: Medical Qualifiers: Hypertension type: primary hypertension Qualified Code(s): I10 - Essential (primary) hypertension Plan 79 yo man with stage 5 CKD, potential etiologies could be multiple for his CKD but not very clear. He has no proteinuria. He had decline in GFR recently either due to progression of his renal disease or due to low BP's. He feels better since he was started on isosorbide. He is with Cardiomems now. He appeared euvolemic and is no longer on sulfasalazine. UA is bland. Doppler is negative for ASTRID. I don't see any benefit to biopsy in this setting. We discussed home HD and he has interest in this but would like to start in center, initially. I have arranged for modality education. He is not uremic and remains diuretic responsive. He has seen Dr. Aiken who strongly feels he will be a great candidate for AV graft which could be put in when he is close to initiation of renal replacement. He has anemia chronic kidney disease and will need Procrit in the future to keep his hemoglobin close to 11 grams/deciliter. He is closely followed up with heart failure clinic in [facility] and has a CardioMEMS in place. I did not make any medication changes today. F/U given Orders: Orders Blood Urea Nitrogen 2 Months D63.1 - Anemia in chronic kidney disease, I10 - Essential (primary) hypertension, N18.5 - Chronic kidney disease, stage 5 Electrolytes 2 Months D63.1 - Anemia in chronic kidney disease, I10 - Essential (primary) hypertension, N18.5 - Chronic kidney disease, stage 5 Phosphorus 2 Months D63.1 - Anemia in chronic kidney disease, I10 - Essential (primary) hypertension, N18.5 - Chronic kidney disease, stage 5 Creatinine 2 Months D63.1 - Anemia in chronic kidney disease, I10 - Essential (primary) hypertension, N18.5 - Chronic kidney disease, stage 5 Calcium 2 Months D63.1 - Anemia in chronic kidney disease, I10 - Essential (primary) hypertension, N18.5 - Chronic kidney disease, stage 5 Coding Level of Care Code Est Pt Level 4 (74351) Diagnoses CKD (chronic kidney disease) stage 5, GFR 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
[2025-01-26 14:35] VITALS: BP 130/62; PULSE 53; O2SAT 98; BMI 27.6
--- OUTSIDE RECORDS SUMMARY | 2025-01-26 17:25 | XMS_ITS | Clinical Summary ---
Author Organization [facility] Address [address] [place] [address] [place] [phone] Phone Care Team Providers Care Animal Husbandry Teacher Name Role Phone Lucita Way MD Unavailable Lucita Way MD Primary Care Provider [phone] Chloe Patel RN Unavailable [email or web address] Allergies Active Allergy Reactions Criticality Noted Date [...] ONCE DAILY IN THE MORNING 30 tablet 5 12/14/2024 Active Medication-Free TextIndications:N eed for hepatitis B vaccination Hep B vaccine # 2 (last Hep B vaccine was given on 12/16/24, Engerix -B) 1 Dose 01/18/2025 Active doxepin (SINEQUAN) 10 MG capsule TAKE 1 CAPSULE BY MOUTH NIGHTLY AT BEDTIME 30 capsule 01/25/2025 Active doxepin (SINEQUAN) 10 MG capsule TAKE 1 CAPSULE BY MOUTH NIGHTLY AT BEDTIME 30 capsule 11/30/2024 5 Discontinued doxepin (SINEQUAN) 10 MG capsule TAKE 1 CAPSULE BY MOUTH NIGHTLY AT BEDTIME 30 capsule 12/28/2024 5 Discontinued Active Problems Patient Care Coordination No te Formatting of this note migh t be different from the original. Patient is high risk for these reasons: pacemaker, Diastolic HF with preserved EF- s/p cardiomems implantation on 05/17/23, DM; CKD V Living Situation: Lives in single family home with in [place], [place] Functional Status (ADL's/iADLs): Independent with ADLs/ IADLs, drives Family/Social Supports: supportive Efrain Goals of Care (HCP/Molst): Full Code (06/05/23); HCP- Efrain Fierro () [phone] Is this patient appropriate for the Serious Illness Conversation? no Community Supports (e.g. VNA, DME Vendors, Elder Services): cardiac rehab Transportation: drives and also drives Medication Management System/Specialized Pharmacy Needs: self Financial Concerns: not in general but does have difficulty affording some recommended medications Other Supports and Care Needs: Followed by a barrel washer machine at [facility] and gradually transitioning to specialists as well as PCP in the [place] area but currently Dr. Way as his primary care provider. Building Construction Superintendent is Dr. Mena at [facility]; Dr Crawford is HF specialist at [facility].. Frequently hospitalized at [facility] and [facility]. PCP : Dr. Dimple Way Domestic Freight Forwarder:Dr. Fontenot also rec outpatient PFT and sleep study. HEART Failure- Dr. Granados. GI: Dr. Dr Estefany Youngblood ([facility], [address], [address], [place] [address] --- [phone]). Ophthalm: Dr. Hannah GARZON, OD Building Construction Superintendent: Nephro: Dr Merritt Daugherty ([facility] [address] [place] [address], [address], [place] [address] --- [phone]). Dermatology: Dr. Alexander. 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 Not immune to hepatitis B virus 12/11/2024 Chronic cough 06/10/2024 CKD (chronic kidney disease) [...] failure 05/30/2023 History of ventricular tachycardia 05/30/2023 buttermaker continuous churn (current) use of anticoagulants 2022 Microalbuminuria due to type 2 diabetes mellitus 05/30/2023 History of cerebellar stroke 05/30/2023 History of SCC (squamous cell carcinoma) of skin 05/30/2023 Macrocytosis 05/30/2023 Hypothyroidism due to medication 05/30/2023 Sleep disturbance 05/30/2023 Hyperkalemia 05/30/2023 ACP (advance care planning) 05/30/2023 Overview (05/30/2023): 11/11/19, HCP-EFRAIN FIERRO. 06/15/19, MOLST-ATTEMPT RESUSCITATION, INTUBATE AND VENTILATE, USE NON-INVASIVE VENTILATION, TRANSFER TO HOSPITAL, USE DIALYSIS, USE ARTIFICIAL NUTRITION, USE ARTIFICIAL HYDRATION. Sensorineural hearing loss (SNHL) 01/29/2023 05/30/2023 Heart failure with normal ejection fraction /2 10/202205/30/2023 WILLIE (obstructive sleep apnea) 10/31/2022 Daytime sleepiness [...] heart disease without heart failure 04/11/2021 05/30/2023 group home current use of oral hypoglycemic drug 04/11/2021 Hesitancy of micturition 11/16/2020 023 Melanocytic nevi of trunk 12/31/20182022 Neuropathy due to type 2 diabetes mellitus 10/3005/30/2023 Diverticulosis of large intestine without hemorr clarissa 08/29/2017 04/02/2023 Overview (04/02/2023): 08/22/17, Dr. Morgan, [facility], pathology neg. Repeat in 5 year. Int. hemorrhoid and sig+gen diverticulosis. Diverticulosis of large inte justin without perforation or abscess without bleeding 08/29/2017 05/30/2023 Overview (05/30/2023): 08/22/17, [facility], pathology neg. Repeat in 5 year. Int. hemorrhoid and sig+gen diverticulosis. 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 Renal lesion 04/17/2010 04/02/2023 Overview (04/02/2023): 11/30, CT bilateral cyst. Some mildly complex. 06/30, Dr. Garza. FU US in 1 year. If unchanged, no further work up is needed. 07/02/2011, renal US, increase size of R renal pole cyst, other bilateral renal cysts are stable. Dr. Garza. 02/21/2015, Abd US, Dr. Morgan There are multiple bilateral [...] Pt is discharged by Dr. Garza. 02/21/2015, Abd US, Dr. Morgan There are multiple bilateral [...] CLS-07/07/2009, inflammatory polyp with focal lymphoid hyperplasia. CLS-07/14/2012, well controlled colitis. And patent anastomosis from prior sigmoid resection. Mild diverticulosis, int. Hemorrhoids. Mild inflammation of the IC valve C/W known Crohn's. 06/28/2013, ED/EH, colitis flare-up. Switch from SULFASALAZINE to mesalamine. Tx with prednisone, started at 40 mg. 08/22/17, Dr. Morgan, [facility], pathology neg. Repeat in 5 year. Int. hemorrhoid and sig+gen diverticulosis. Based on record review by Station Manager and clinical documentation. [facility]/Dr Morgan [...] LDL < 70 according to rec. From [employer] [facility] [employer]. -pt reports that Dr. Pelaez [...] Encounters Date Type Department Care Team Description 01/25/2025 Refill [facility] [place] [address] [place] [address] MD Medication Refill 01/19/2025 Telephone [facility] [address] [address] MD 01/18/2025 Refill [facility] [address] [place] [address] MD Medication Refill 12/26/2024 Refill [facility] [address] [place] [place] [address] MD Medication Refill 12/16/2024 2:20 PM EST Office Visit [facility] [address] [place] [address] MD Routine general medical examination at a health care facility (Primary Dx); Chronic combined systolic and diastolic congestive heart failure; LVH (left ventricular hypertrophy); Pacemaker; History of ventricular tachycardia; Non-ischemic cardiomyopathy; Atrial fibrillation, unspecified type; group home (current) use of anticoagulants; Renal lesion; CKD (chronic kidney disease) stage 4, GFR 15-29 ml/min; Microalbuminuria; Microalbuminuria due to type 2 diabetes mellitus; Essential hypertension; Gastroesophageal reflux disease without esophagitis; Diabetes mellitus type 2 with complications; Neuropathy due to type 2 diabetes mellitus; Diabetes mellitus with nephropathy; History of cerebellar stroke; Mixed hyperlipidemia; Crohn's disease of small intestine with complication; History of SCC (squamous cell carcinoma) of skin; Dermographism; Benign prostatic hyperplasia with urinary hesitancy; Hypothyroidism due to medication; Increased prostate specific antigen (PSA) velocity; Sleep disturbance; WILLIE (obstructive sleep apnea); Chronic cough; Not immune to hepatitis B virus; Need for pneumococcal 20-valent conjugate vaccination; Need for hepatitis B vaccination; Decreased hearing of both ears; CKD (chronic kidney disease) stage 5, GFR 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 ml/min; Acute on chronic combined systolic and diastolic congestive heart failure; Interstitial pulmonary disease, unspecified 12/14/2024 Refill [facility] [address] [place] [address] Angel Allred MD Medication Refill 12/01/2024 Orders Only [facility] [address] [place] [address] MD 12/01/2024 Orders Only [facility] [address] [place] [address] Candy Fontanez MD 11/30/2024 Refill [facility] [address] [place] [address] MD Medication Refill 11/26/2024 Telephone [facility] [email or web address] Care Management [address] [place] [address] Celi Starr [facility] 11/26/2024 Patient Outreach [facility]. Care Management [address] [place] [address] Chloe Patel, CELINA Care Coordination (Routine follow up) 11/13/2024 Refill [facility] [address] [place] [address] MD Medication Refill 11/03/2024 Refill [facility] [address] [place] [address] MD Medication Refill from Last 3 Months Immunizations Name Administration Dates Next Due COVID-19 (Pre-08/12) Pfizer Vaccine, mRNA, PF 08/02/2021,08/01/2021,12/23/2020,12/02 COVID-19 Pfizer Comirnaty Vaccine 12+ 07/10/2024 [id number] FORMULATION 12/12/2009 Hepatitis B Adult 12/16/2024 Influenza High-Dose Quadriva lent Preservative Free IM 07/10/2024,08/12/2022,07/25/2021,08/12 Influenza High-Dose Trivalen t Preservative Free IM 07/10/2024,08/12/2022,08/21/2020,11/11,08/12/2018,08/19/2017,10/03/2016 ,09/27/2015,09/13/2014 Influenza Quadrivalent Adjuv anted Preservative Free IM 09/05/2023 Influenza Trivalent Preserva tive Free IM 09/11/2013,09/09/2012 Influenza Trivalent w/ Preservative IM 1 ,08/12/2020,11/11/2019,08/12,08/19/2017,10/03/2016,09/27/2015 ,09/13/2014,09/11/2013,09/09/2012 Influenza, Unspecified Formulation 09/11,09/11/2013,09/09/2012,08/04,09/10/2003 Pneumococcal conjugate PCV13 05/06/2015 Pneumococcal conjugate PCV20 12/16/2024 Pneumococcal polysaccharide PPSV23 03/20/2017,,03/22/2009 RSV Vaccine (monovalent, [...] ecorded Denied Basic Needs Not on file 12/09/2024 In the past 12 months have y ou been in a relationship with a person who hurts, threatens, or tries to control you? No 12/09/2024 Worried food would run out Not on file 12/09 In the past 12 months have y ou been in a relationship with a person who hurts, threatens, or tries to control you? No 12/09/2024 Sex and Gender Information Value Date Recorded Sex Assigned at Not on file Gender Identity Not on file Sexual Orientation Not on file Last Filed Vital Signs Vital Sign Reading Time Taken Comments Blood Pressure 129/70 12/16/2024 2:12 PM EST Pulse 65 12/16/2024 2:12 PM EST Temperature 36.4 ??C (97.5 ??F) 12/16/2024 2:12 PM ES T Respiratory Rate - - Oxygen Saturation 99% 12/16/2024 2:12 PM EST Inhaled Oxygen Concentration - - Weight 79.4 kg (175 lb) 12/16/2024 2:12 PM EST Height 172.7 cm (5' 8 ) 12/16/2024 2:12 PM EST Body Mass Index 26.61 12/16/2024 2:12 PM EST Plan of Treatment Upcoming Encounters Date Type Department Care Team (Late st Contact Info) Description 06/30/2025 2:20 PM EDT Appointment [facility] [place] [address] [place] [address] MD [address] [place] [address] 08/17/2025 1:40 PM EDT Office Visit [facility], [address] [facility] [address] [place] [address] Isabel Alexander MD [address] [place] [address] Health Maintenance Due Date Last Done Comments SMOKING Hx and SMOKELESS TOBACCO SCREENING 1958 DIABETIC EYE EXAM 04/02/2023 HEMOGLOBIN A1C 05/27/2025 11/27/2024, 11/21, 12/04/2023, Additional history exists BLOOD PRESSURE 06/15/2025 12/16/2024 CREATININE LEVEL 11/13/2025 11/13/2024, , 06/01/2024, Additional history exists ALT LEVEL (ALANINE AMINOTRANSFERASE) 11/27/2025 11/27/2024, 12/04/2023, 07/03/2021 LIPID PANEL 11/27/2025 11/27/2024, 04/2025, 11/27/2024, Additional history exists POTASSIUM LEVEL 11/27/2025 11/27/2024, 12/04/2023 TSH LEVEL 11/27/2025 11/27/2024, 10/22, 06/03/2024, Additional history exists DEPRESSION SCREENING 12/09/2025 12/09/2024 Adult Td,Tdap Booster 12/11/2033 12/11/2023 , 09/13/2014, 08/10/2005, Additional history exists ZOSTER VACCINES Completed 06/22/2019, 11/2018, 04/09/2019, Additional history exists HEPATITIS C SCREENING Completed 11/04/2019 COVID-19 VACCINE Completed 07/10/2024, , 10/09/2022, Additional history exists INFLUENZA VACCINE Completed 07/10/2024, , 09/05/2023, Additional history exists RSV VACCINE Completed 09/10/2024 PNEUMOCOCCAL VACCINES (50+ years) Completed 12/16/2024, 03/20/2017, 05/06/2015, Additional history exists HEPATITIS A VACCINES Aged Out No long [...] Recently Relevant to Health Maintenance Advance Directives For more information, please contact: [phone] (9AM - 5PM [facility], Saturday-Saturday) * Full Code (Latest Code Status on File) Date Activated Date Inactivated Comments 06/05/2023 1:10 PM Question Answer Comments Code Status Confirmed With: Patient Code Status Communicated To: PCP Code Discussion Comments: 06/15/19, MOLST -ATTEMPT RESUSCITATION, INTUBATE AND VENTILATE, USE NON-INVASIVE VENTILATION, TRANSFER TO HOSPITAL, USE DIALYSIS, USE ARTIFICIAL NUTRITION, USE ARTIFICIAL HYDRATION. Care Teams Animal Husbandry Teacher Relationship Specialty Start Date End Date Lucita Way MD [address] [place] [address] PCP - General Internal Medicine 11/23/[address] MD [address] [place] [address] Insurance Assigned Provider 01/25/24 Chloe Patel, CELINA [address] [place] [id number] [email or web address] Residential Program Manager 08/24/22 Additional Source Comments The information contained in this document represents components of the legal health record. It is not the complete legal health record.[facility]
--- OUTSIDE RECORDS SUMMARY | 2025-01-26 17:25 | XMS_ITS | Encounter Summary ---
Author Organization [facility] Address [address] [place] [phone] Phone Care Team Providers Care Bulk Sugar Handler Name Role Phone Lucita Way MD Unavailable Lucita Way MD Primary Care Provider Chloe Patel RN Unavailable [email or web address] Reason for Visit * Reason Comments Medication Refill Encounter Details Date Type Department Care Team (Late st Contact Info) Description 01/25/2025 Refill [facility] [place] [address] [place], [place] [phone] Lucita Way MD [address] [place] [address] Medication Refill Social History Tobacco Use Types [...] Info) Description 06/30/2025 2:20 PM EDT Appointment [facility] [place] [address] [place] [address] MD [address] [place] [address] 08/17/2025 1:40 PM EDT Office Visit [facility], [address] [facility] [address] [place] [address] Isabel Alexander MD [address] [place] [address] [email or web address] documented as of this encounter Visit Diagnoses Not on filedocumented in this encounter Additional Health Concerns Assessment Noted Time PHQ-2 Depression Total Score: 0 12/09/19 25 5:11 PM EST documented as of this encounter Care Teams Bulk Sugar Handler Relationship Specialty Start Date End Date Lucita Way MD [address] [place] [address] PCP - General Internal Medicine 11/23/[address] MD [address] [place] [address] Insurance Assigned Provider 01/25/24 Chloe Patel RN [address] [place] [id number] [employer] Land Management Forester 08/24/22 documented as of this encounter Additional Source Comments The information contained in this document represents components of the legal health record. It is not the complete legal health record.[facility]
--- OUTSIDE RECORDS SUMMARY | 2025-01-26 17:25 | XMS_ITS | Clinical Summary ---
Author Organization [facility] Address [address] [facility] [address] [place] [address] Phone Care Team Providers Care Spanish Instructor Name Role Phone Unavailable Primary Care Provider [...] Hypertensive heart disease without heart failure 04/11/2021 intermediate current use of oral hypoglycemic drug 04/11/2021 Other fatigue 04/11/2021 Palpitations 04/09/2021 Diverticulosis of large inte justin without perforation or abscess without bleeding 08/29/2017 Overview (01/08/2023): 08/22/17, Dr. Morgan, [facility], pathology neg. Repeat in 5 year. [...] renal cysts are stable. Dr. Garza. 02/21/2015, [facility], Dr. Morgan There are multiple bilateral renal [...] Pt is discharged by Dr. Garza. 02/21/2015, [facility], Dr. Morgan There are multiple bilateral renal [...] is discharged by Dr. Garza. Crohn's disease 04/17/2010 Overview (01/08/2023): Dr. Morgan. [facility]-06/30/2001, colonic mucosa displaying focal congestion in lamina propria [facility]-07/07/2009, inflammatory polyp with focal lymphoid hyperplasia. CLS-07/14/2012, well controlled colitis. And patent anastomosis from prior sigmoid resection. Mild diverticulosis, int. Hemorrhoids. Mild inflammation of the IC valve C/W known Crohn's. 06/28/2013, ED/EH, colitis flare-up. Switch from SULFASALAZINE to mesalamine. Tx with prednisone, started at 40 mg. 08/22/17, Dr. Morgan, [facility], pathology neg. Repeat in 5 year. Int. hemorrhoid and sig+gen diverticulosis. Based on record review by Tree Surgeon Helper and clinical documentation. [facility]/Dr Morgan office [...] LDL < 70 according to rec. From [employer]. -pt reports that Dr. Henriquez [...] Diabetes: Visual Foot Exam 11/07/2022 Influenza Vaccine (Season Ended) 2025 07/25/2021, 08/12/2020, 11/11/2019, Additional history exists Pneumococcal Vaccine: 65+ Years Completed 03/20/2017, 05/06/2015, 04/11/2009 Hepatitis B Vaccine Aged Out No longe r eligible based on patient's age to complete this topic Insurance [facility]IC[facility]
--- OUTSIDE RECORDS SUMMARY | 2025-01-26 17:25 | XMS_ITS | Data Portability ---
Author Organization [place] [facility], Allergy Address [address] [address] Care Team Providers Care Bore Mill Operator Name Role Phone VIRGINIAKELLY Primary Care Provider Assessment Encounter Date Assessment [...] Organization Details Last Modified Time Details Appointments None record ed. Lab None record ed. Referral None record ed. Procedures None record ed. Surgeries None record ed. Imaging None record ed. Medication Orders None record ed. Patient TargetsNo targets recorded. Patient InstructionsNo instructions [...] Address Organization Details Recorded Time Traumatic hematoma [id number] Active 2023 KATHERINE DAVID MD [address] [place] [address], [phone], [facility] - [facility] 15:47:27 Bilateral earache [id number] Active 2023 KATHERINE DAVID MD [address] [place] [address], [phone], [facility] - [facility] 4 15:47:38 Sensorineural hearing loss of bilateral ears 085887426 Active 2024 AIMEE FISHER [place], [facility], [phone], [facility] - [facility] 5 14:01:08 Problem Notes None recorded. Procedures Surgical History Date Name Laterality Status Provider Name and Address Organization Details Recorded Time 11/19/2024 Comp Audio with Tymps (58648 & 84715) completed AIMEE FISHER MA, [facility] [address] [place] [address],[address], [phone], [facility] - [facility] 11/19/2024 14:03:40 08/19/2024 FOL_DP completed KATHERINE DAVID MD [address] [place] [address], [phone], [facility] - [facility] 08/19/2024 15:46:31 Imaging Results Imaging Date Name Status LastModified by Organiz atformerly [facility] Details LastModified Time 11/20/2024 audiogram completed BARCODE [...] Not Available No t Available amoxicillin 500 mg-leslie m clavulanate 125 mg tablet TAKE 1 [...] Updated DateTime 08/19/2024 172.72 cm 26.6 kg/m2 98140.66 g Elizabeth Pinto [place] - [facility] 08/19/2024 15:30:53 Date Recorded Body height Body weight Provider Name and Address Organization Details Last Updated DateTime 11/19/2024 172.72 cm 45119.66 g Verónica Sauer [place] [facility] 11/19/2024 14:21:46 Social History None recorded. Functional Status None recorded. Mental Status None recorded. Family History Nothing Reported. Medical History Condition Response Allergies/Hayfever N Heart Problems Y Anxiety N Emphysema N Migraines N Thyroid Problems N Depression N COPD N Developmental Delay N Glaucoma N Nasal or Sinus Problems N Anemia N Anesthesia Complications N Heart Attack (MT) N Other Skin Condition N Diabetes Y [...] SNOMED-CT Code Diagnosis ICD10 Code Diagnosis Note [id number] KATHERINE DAVID MD [facility] [address] [address] 08/19/2024 15:06:20 08/19/2024 16:00:27 Traumatic hematoma [id number] T14.8XXA Bilateral earache 227472 003 H92.03 [id number] KATHERINE DAVID MD [facility] 100 [place] [address] 11/19/2024 13:15:30 11/19/2024 14:45:11 Sensorineural hearing loss of bilateral ears [id number] H90.3 [id number] AIMEE FISHER MA, CCC-A [facility] 100 [place] [address] 11/19/2024 13:59:56 11/24/2024 03:58:53 Sensorineural hearing loss of bilateral ears 135165556 H90.3 Audiologic al evaluation results: Right ear: [...] Cou ld not maintain a hermetic seal}} [id number] CHRIS RODNEY [place] 100 [facility],Jacobo ite 100 [place] [address] 12/08/2024 14:31:12 12/09/2024 07:58:17 Sensorineural hearing loss of bilateral ears [id number] H90.3 Health Concerns Section Related Observation LastModified by Organization Detai ls LastModified Time None Recorded Concern Status LastModified by Organization Details LastModified Time None Recorded Advance Directives Directive None Recorded Payers Encounter Date Sequence Insurance Name Policy Number Policy Cannon Covered Member ID Cannon Member ID Guarantor Name 08/19/2024 1 [place] [employer] Dago J Judy [id number] Dago Judy 11/19/2024 2 [place] [id number] Patricia Vadim [id number] Dago Judy 11/19/2024 1 [place]MENT [place] Dago J Judy [id number] Dago Judy 11/19/2024 2 [place] [id number] 4 Patricia Vadim [id number] Dago Judy 11/19/2024 1 [place] Dago J Judy [id number] Dago Judy 12/08/2024 2 [place] [id number] 4 Patricia Vadim [id number] Dago Judy 12/08/2024 1 [place]MENT [place] Dago J Judy [id number] 4 Dago Judy Notes Date Note Type Note Provider Name and Address Organization Details Recorded Time 08/19/2024 text/html Dr Youngblood (GI) referraltongue pigmentationnoted incidentally on posterior tongue during EGDdysphagiaba swallow, [facility] - esophageal dysmotilityno hemoptysistobacco- former stopped 1995on [employer]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 KATHERINE DAVID MD 100 [facility],[address], [address], [place] - [facility] [place] 08/19/2024 15:53:55 11/19/2024 text/html Longstanding hea ring loss AIMEE FISHER MA, CCC-A 100 [facility],[address], [address], [facility] - [facility] 11/19/2024 14:04:01 11/19/2024 text/html hearing loss PV 08/19/24 [place] tongue pigmentation eval, normal FOL. B otalgia likely referred pain. 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 KATHERINE DAVID MD 100 [facility],[address], [address], [facility] - [facility] 11/19/2024 14:42:17 12/08/2024 text/html Patient with rep orted gradual onset SNHL here to discuss fitting of amplification as a first time user. Patient has seen an clerical car checker who has provided medical clearance for the use of hearing devices.Reviewed history of hearing loss, the impact on hearing loss on communicative ability and patient's goals for amplification. 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 Gave him my contact info if he has any additional questions. CHRIS RODNEY 100 [facility],[address], [address], [facility] - [facility] 12/08/2024 15:36:08
--- OUTSIDE RECORDS SUMMARY | 2025-01-26 17:25 | XMS_ITS | Clinical Summary ---
Author Organization [employer] Address [address] [place] [address] Care Team Providers Care Factory Machine Computer Operator Name Role Phone Lucita Way MD Primary Care Provider [phone] Allergies Active Allergy Reactions Criticality Noted Date [...] Adults 18 yrs or above (or HM Modifier)([facility]) 1963 Hepatitis C Virus Infection in Adolescents and Adults: Screening (or Modifier) ([facility]) 1963 SDGA Screening Reminder: Dot ually for all adults ([facility]) 1963 Tobacco Smoking Cessation: i n Adults excluding Women: Behavioral and Pharmacotherapy Interventions ([facility]) 1963 Lipid Screening: Every 5 yrs for Men aged 35+ (or HM Modifier) ([facility]) 1981 Lung Cancer: Screening Annua lly in adults aged 50 to 80 years (or HM Modifiers)([facility]) 1995 Zoster/Shingles Vaccine Seri es Screening: Adults aged 18+ yrs (or HM Modifiers)([facility]) (1 of 2) 1995 Pneumococcal Vaccination Scr eening: Patients 50+ yrs of age ([facility]) (2 of 2 - PCV) 03/20/2018 03/20/2017, 04/11/2009 RSV Vaccines (1 - 1-dose 75+ series) 02/10/2020 Flu Vaccination: Ages 65+: Y early High Dose Recommended (or Modifier)([facility]) 05/21/2024 08/12/2018, 08/19/2017, 10/03/2016, Additional history exists COVID-19 Vaccine Screening: Initial Series and Booster Status ([facility]) (1 - 2023- season) 2024 DTaP/Tdap/Td Vaccines ([facility]) (2 - Td or Tdap) 09/13/2024 09/13/2014 Medical Devices Not on file Insurance MEDICARE [facility] Care Teams Factory Machine Computer Operator Relationship Specialty Start Date End Date Lucita Way MD [facility] [address] [facility] [address] [place] [address] PCP - General Internal Medicine 05/10/21
--- OUTSIDE RECORDS SUMMARY | 2025-01-26 17:25 | XMS_ITS | Encounter Summary ---
Author Organization [facility] Address [address] [facility] [address] [place] [address] Phone Care Team Providers Care Progressive Assembler And Fitter Name Role Phone Lucita Way MD Unavailable Lucita Way MD Primary Care Provider [phone] Chloe Patel RN Unavailable [email or web address] Reason for Visit * Reason Onset Date Comments Medication Refill 01/19/2025 Encounter Details Date Type Department Care Team (Late st Contact Info) Description 01/18/2025 Refill [facility] [place] [address] [place] [place], [place] [phone] Lucita Way MD [address] [place] [place] [address] Medication Refill Social History Tobacco Use Types [...] as of this encounter Progress Notes * Marline Huerta - 01/19/2025 8:58 AM EDT Elizabeth from [facility] pharmacy called, . They don't carry the Engerix but they're callingother pharmacies to try to find it. Thinks we should've finished it up here * Kala Ackerman MA - 01/18/2025 11:44 AM EDT Hep B #2 prescription faxed to [facility]. Pt is aware. * Lucita Way MD - 01/18/2025 11:28 AM EDT All set. * Kala Ackerman MA - 01/18/2025 11:25 AM EDT Pt received Hep B #1 on 12/16/24. Need Hep B #2. Called [facility], they need prescription send to the, Rx pending. Please print. * Dede Hernadez - 01/18/2025 11:01 AM EDT Patient called. He said the [facility] pharmacy needs a prescription for the 2nd hep B shot with strain. Please follow up documented in this encounter Plan of Treatment Upcoming Encounters Date Type Department Care Team (Late st Contact Info) Description 06/30/2025 2:20 PM EDT Appointment [facility] [place] [address] [place] [address] MD [address] [place] [address] 08/17/2025 1:40 PM EDT Office Visit Adult & Pediatric Dermatology, [address] [facility] [address] [place] [address] Isabel Alexander MD [address] [place] [address] [email or web address] documented as of this encounter Visit Diagnoses Diagnosis Need for hepatitis B vaccination- Primary documented in this encounter Additional Health Concerns Assessment Noted Time PHQ-2 Depression Total Score: 0 12/09/19 25 5:11 PM EST documented as of this encounter Care Teams Progressive Assembler And Fitter Relationship Specialty Start Date End Date Lucita Way MD [address] [place] [address] PCP - General Internal Medicine 11/23/[address] MD [address] [place] [address] Insurance Assigned Provider 01/25/24 Chloe Patel, CELINA [address] [place] [address] [email or web address] iCMP Pattern Grader 08/24/22 documented as of this encounter Additional Source Comments The information contained in this document represents components of the legal health record. It is not the complete legal health record.[facility]
--- OUTSIDE RECORDS SUMMARY | 2025-01-26 17:25 | XMS_ITS | Continuity of Care Document ---
Author Organization [facility] Address [address] [place] [address]- Care Team Providers Care Ship Purser Name Role Phone Harsh Hopkins MD Primary Care Physician Encounter [facility] Date(s): 12/22/24 - 01/21/25 [facility] [address] [place] [phone]- Encounter Type: Triage Allergies, Adverse Reactions, Alerts [...] Jaspreet rded influenza virus vaccine, inactivated 09/11/13 Ajspreet rded influenza virus vaccine, inactivated 09/09/12 Jaspreet rded zoster vaccine, inactivated 06/22/19 Recorded zoster vaccine, inactivated 04/09/19 Recorded pneumococcal 23-valent vaccine 03/20/17 Recorded pneumococcal 13-valent vaccine 05/06/15 Recorded tetanus/diphtheria/pertussis, acel(Tdap) 09/13/14 Recorded Medications amiodarone 200 mg oral tablet 200 mg, 1, tablet, By Mouth, Daily, # 90 tablet, Refills 3, Tot. Refills 3, Maintenance, 05/25/24 3:17:00 PM EDT, Route to Pharmacy Electronically, [facility], Partial fill upon patient request [...] 4:44:00 PM EDT, Route to Pharmacy Electronically, [facility], Partial fill upon patient request [...] Refills, Maintenance, 08/07/24 9:46:00 AM EDT, Tablet, [facility], Partial fill upon patient request [...] Refills, Maintenance, 01/31/24 3:37:00 PM EDT, Tablet, [place] [address], Partial fill upon patient request if the [...] 9:44:00 AM EDT, Route to Pharmacy Electronically, [facility], Partial fill upon patient request [...] Maintenance, 08/28/24 3:43:00 PM EST, ER Tablet, [facility], Partial fill upon patient request [...] Refills, Maintenance, 07/23/23 3:15:00 PM EDT, Tablet, [facility], Partial fill upon patient request [...] 12:38:00 PM EDT, Route to Pharmacy Electronically, [facility], Partial fill upon patient request if the prescription is for a schedule II opioid drug., 172, cm, 04/29/24 16:38:00 EDT, Height, 73, kg, 09/25/23 16:52:00 EST, Dry Weight Start Date: 06/09/24 Status: Ordered Quantity: 30.0 Unit: tablet Repeat number: 1 Metronidazole Maintenance, 04/28/24 3:44:00 PM EDT Start Date: 04/28/24 Status: Ordered Repeat number: 1 Oral Mandibular Advancement Device Oral Mandibular Advancement Device, See Instructions, # 1 each, Refills 0, Tot. Refills 0, Maintenance, Use when sleeping to treat sleep apnea G47.33, 12/17/24 5:25:00 PM EST, Supply Start Date: 12/17/24 Status: Ordered Quantity: 1.0 Unit: each Repeat number: 1 Indication: Obstructive sleep apnea (adult) (pediatric) Please have your labwork for chemistries and [...] Maintenance, 08/03/24 3:41:00 PM EDT, CR Capsule, [facility], Partial fill upon patient request [...] torsemide 20 mg oral tablet See Instructions, TAKE 4 TABLETS BY MOUTH TWICE DAILY SATURDAY-SATURDAY AND TAKE 2 TABLETS BY MOUTH TWICE DAILY SATURDAY-SATURDAY, # 160 tablet, 5 Refills, Maintenance, 12/17/24 10:50:00 AM EST, [facility], 175, cm, 11/23/24 17:00:00 EST, Height, 74.5, kg, 08/03/24 13:23:00 EDT, Dry Weight Start Date: 12/17/24 Status: Ordered Quantity: 160.0 Unit: tablet Repeat number: 1 Vitamin B12 1000 mcg oral tablet 2 [...] Care Team Personnel Name: Chayito Leary Position: [facility] RN Supv Member Role: Primary Care Nurse Name: Tucker Odom RN Position: [facility] RN Member Role: Primary Care Nurse Name: Hailee Colón RN Position: [facility] RN Member Role: Primary Care Nurse Name: Tanvi Huitron RN Position: [facility] RN Member Role: Primary Care Nurse Name: Sophia Bell RN Position: S RN Member Role: Primary Care Nurse Name: Harsh Hopkins MD Position: [facility] Cardiology MD Member Role: PCP Address: [address] [place] [address] Cardiology [facility] [place] [address]- Telecom: Care Team Related Persons Name: EFRAIN VERNON Insurance Providers Guarantor name: FERMÍN BARONE Bundle Buy Plan Information #: 1 Payer: MEDICARE PART B OUTPT Member Number: NA Policy Number: NA Group Number: NA Health Plan Information #: 2 Payer: BLUE MEDICARE SUPPL Member Number: NA Policy Number: NA Group Number: NA Health Plan Information #: 3 Payer: BLUE CARE ELECT Member Number: NA Policy Number: NA Group Number: NA
== END 2025-01-26 15:09 | disposition home or self-care (01) ==
LOC: HO.HKAS 14:18
PROVIDERS: PCP Internal Medicine; Visit Provider Internal Medicine Nephrology
DX: N18.5 Chronic kidney disease, stage 5 (principal); D63.1 Anemia in chronic kidney disease; I12.0 Hypertensive chronic kidney disease with stage 5 chronic kidney disease or end stage renal disease
CPT/HCPCS: 99214

== ENCOUNTER → 2025-01-26 14:18 | Outpatient (BNVA) | payer MEDICARE, BC, SELFPAY | PROVIDERS: PCP Internal Medicine; Visit Provider Internal Medicine Nephrology | DX: E11.22 Type 2 diabetes mellitus with diabetic chronic kidney disease (principal); I12.0 Hypertensive chronic kidney disease with stage 5 chronic kidney disease or end stage renal disease; N18.5 Chronic kidney disease, stage 5; D63.1 Anemia in chronic kidney disease | CPT/HCPCS: 99212 ==

== ENCOUNTER 2025-04-08 15:40 | Outpatient (AMB) | payer MEDICARE, BC, SELFPAY ==
--- NOTE | 2025-04-08 16:02 | HO.NEPHOV ---
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 He has H/O no significant proteinuria and has a bland UA. Etiology of his CKD has been unclear with ddx possibilities including prior SHAAN with incomplete recovery, AIN associated with crohn's or sulfasalazine, nonproteinuric DKD, nephrosclerosis, and CRS. Despite optimization of his volume status using the cardiomems device his creatinine has remained at about 3.8-4 mg/dl which had gone up recently but improved on diuresis during recent hospitalization. He had been having low K and is on K replacement. He is not uremic. He tells me that since increasing isosorbide, he has had a significant improvement in his SOB and endurance. He has been off of sulfasalazine and his crohn's is quiescent.He went for modality education in the past and is planning for in-center and later eventually home HD. He undertook venous mapping and needs to have the AVF placed when the timing is right. His last eGFR was close to 14 cc/min . He has seen Dr. Aiken who suggested an AV graft when he gets close to initiation of renal replacement.His GFR had been fluctuant based on the dose of diuretics he takes( adjusted by Dr Granados). He was suggested to have K sparing diuretics and cut back on K replacement but wants it to be run with his passenger car inspector. [facility] Medical History (Updated 04/08/25 @ 21:52 by Merritt Daugherty MD) Type 2 diabetes mellitus Congestive heart failure Hypertension Chronic kidney disease Surgical History S/P placement of cardiac pacemaker S/P rotator cuff repair History of appendectomy History of colectomy History of hip replacement Social History Alcohol intake: never Patient Tobacco Use Status: Former Tobacco user Review of Systems Const All systems reviewed & are unremarkable except as noted in HPI and below Physical Exam Vital Signs: Last Vital Signs Pulse 50 04/08/25 16:08 BP 90/60 04/08/25 16:08 Pulse Ox 97 04/08/25 16:08 Oxygen Delivery Method Room Air 04/08/25 16:08 BMI result Body Mass Index 0.3 Const General: comfortable and no acute distress Orientation/consciousness: patient oriented x3 HEENT Head: Yes normocephalic Mouth: Normal oral and palatal mucosa present Eyes EOM: EOMs intact bilaterally Neck Neck: Yes supple Resp Auscultation: clear to auscultation bilaterally Cardio Jugular venous distension: no JVD Rate: regular rate GI Palpation (GI): Soft to palpation Auscultation: normal bowel sounds General: Yes no CVA tenderness Back/Spine/Pelvis Back: no CVA tenderness Skin General skin exam: no rashes or lesions noted Neuro General: patient oriented x3 and moves all extremities Extrem General: Yes no pedal edema Assessment & Plan Assessment & Plan (1) CKD (chronic kidney disease) stage 4, GFR 15-29 ml/min: Code(s): N18.4 - Chronic kidney disease, stage 4 (severe) Category: Medical (2) Hypertension: Code(s): I10 - Essential (primary) hypertension Category: Medical Qualifiers: Hypertension type: primary hypertension Qualified Code(s): I10 - Essential (primary) hypertension (3) Anemia in chronic kidney disease (CKD): Code(s): N18.9 - Chronic kidney disease, unspecified; D63.1 - Anemia in chronic kidney disease Category: Medical Qualifiers: Chronic kidney disease stage: stage 5, not on chronic dialysis Qualified Code(s): N18.5 - Chronic kidney disease, stage 5; D63.1 - Anemia in chronic kidney disease (4) Secondary hyperparathyroidism (of renal origin): Code(s): N25.81 - Secondary hyperparathyroidism of renal origin Category: Medical Plan 80 yo man with stage 5 CKD, potential etiologies could be multiple for his CKD but not very clear. He has no proteinuria. He had decline in GFR recently either due to progression of his renal disease or due to low BP's. He feels better since isosorbide has been increased. He is with Cardiomems . He appeared euvolemic and is no longer on sulfasalazine. UA is bland. Doppler is negative for ASTRID. I don't see any benefit to biopsy in this setting. We discussed home HD and he has interest in this but would like to start in center, initially. I had modality education. He is not uremic and remains diuretic responsive. He has seen Dr. Aiken who strongly feels he will be a great candidate for AV graft which could be put in when he is close to initiation of renal replacement. He has anemia chronic kidney disease and will need Procrit in the future to keep his hemoglobin close to 11 grams/deciliter. He is closely followed up with heart failure clinic in [facility] and has a CardioMEMS in place. He will benefit from K sparing diuretics and lowering K replacement. I did not make any medication changes today. F/U given Coding Level of Care Code Est Pt Level 4 (62031) Diagnoses CKD (chronic kidney disease) stage 4, GFR 15-29 ml/min N18.4 Primary hypertension I10 Hypertension type: primary hypertension Anemia in stage 5 chronic kidney disease, not on chronic dialysis N18.5; D63.1 Chronic kidney disease stage: stage 5, not on chronic dialysis Secondary hyperparathyroidism (of renal origin) N25.81
[2025-04-08 16:08] VITALS: BP 90/60; PULSE 50; O2SAT 97
--- OUTSIDE RECORDS SUMMARY | 2025-04-08 16:48 | XMS_ITS | Clinical Summary ---
Author Organization [employer] Address [address] [place] [address] Care Team Providers Care Orthopedic Podiatrist Name Role Phone Lucita Way MD Primary Care Provider [phone] Allergies Active Allergy Reactions Criticality Noted Date [...] 69 07/29/2021 2:14 PM EDT Temperature 36.5 C (97.7 F) 07/29/2021 2:14 PM EDT Respiratory Rate 14 07/29/2021 2:14 PM EDT [...] 18 yrs or above (or HM Modifier)([facility]) 1963 SDOH Screening Reminder: Dot levin for all adults ([facility]) 1963 Tobacco Smoking Cessation: i n Adults excluding Women: Behavioral and Pharmacotherapy Interventions ([facility]) 1963 Lung Cancer: Screening Tia galarza in adults aged 50 to 80 years (or HM Modifiers)([facility]) 1995 Zoster/Shingles Vaccine Seri es Screening: Adults aged 18+ yrs (or HM Modifiers)([facility]) (1 of 2) 1995 Pneumococcal Vaccination Scr eening: Patients 50+ yrs of age ([facility]) (2 of 2 - PCV) 03/20/2018 03/20/2017, 04/11/2009 RSV Vaccines (1 - 1-dose 75+ series) 02/10/2020 COVID-19 Vaccine Screening: Initial Series and Booster Status ([facility]) ( - 2023- season) 2024 DTaP/Tdap/Td Vaccines ([facility]) (2 - Td or Tdap) 09/13/2024 09/13/2014 Flu Vaccination: Ages 65+: Y early High Dose Recommended (or Modifier)([facility]) 05/21/2025 08/12/2018, 08/19/2017, 10/03/2016, Additional history exists Medical Devices Not on file Insurance MEDICARE [facility] Care Teams Orthopedic Podiatrist Relationship Specialty Start Date End Date Lucita Way MD [facility] [address] [facility] [address] [place] [address] PCP - General Internal Medicine 05/10/21
== END 2025-04-08 16:26 | disposition home or self-care (01) ==
LOC: HO.HKAS 15:40
PROVIDERS: PCP Internal Medicine; Visit Provider Internal Medicine Nephrology
DX: I12.9 Hypertensive chronic kidney disease with stage 1 through stage 4 chronic kidney disease, or unspecified chronic kidney disease (principal); N18.4 Chronic kidney disease, stage 4 (severe); N18.5 Chronic kidney disease, stage 5; D63.1 Anemia in chronic kidney disease; N25.81 Secondary hyperparathyroidism of renal origin
CPT/HCPCS: 99214

== ENCOUNTER → 2025-04-08 15:40 | Outpatient (BNVA) | payer MEDICARE, BC, SELFPAY | PROVIDERS: PCP Internal Medicine; Visit Provider Internal Medicine Nephrology | DX: I12.9 Hypertensive chronic kidney disease with stage 1 through stage 4 chronic kidney disease, or unspecified chronic kidney disease (principal); N18.5 Chronic kidney disease, stage 5; D63.1 Anemia in chronic kidney disease; N25.81 Secondary hyperparathyroidism of renal origin | CPT/HCPCS: 99212 ==

== ENCOUNTER 2025-05-11 13:45 | Outpatient (AMB) | payer MEDICARE, BC, SELFPAY ==
--- OUTSIDE RECORDS SUMMARY | 2025-05-08 23:59 | XMS_ITS | Continuity of Care Document ---
Author Organization [facility] Address [address] [place] [address]- Support Name Relationship Address Phone EFRAIN VERNON spouse Unknown Unavailable EFRAIN BARONE Personal Relationship Unknown Unav ailable JANEEN, EFRAIN spouse Unknown Unavailable JANEEN, EFRAIN spouse Unknown Unavailable Encounter [facility] NBR [id number] Date(s): 04/08/25 - 05/08/25 [facility] [address] [place], [place] [address] Encounter Type: Triage Allergies, Adverse Reactions, Alerts [...] 3:17:00 PM EDT, Route to Pharmacy Electronically, [facility], Partial fill upon patient request if the prescription is for a schedule II opioid drug., 172, cm, 04/29/24 16:38:00 EDT, Height, 73, kg, 09/25/23 16:52:00 EST, Dry Weight Start Date: 05/25/24 Stop Date: 05/20/25 Status: Ordered Quantity: 90.0 Unit: tablet Repeat number: 4 amitriptyline 25 mg oral tablet 1, tablet, By Mouth, Daily at bedtime, # 90 tablet, Refills 0, Maintenance, 02/12/25 12:06:00 PM EDT, Route to Pharmacy Electronically, [facility], 175, cm, 02/10/25 15:54:00 EDT, Height, 74.5, kg, 08/03/24 13:23:00 EDT, Dry Weight Start Date: 02/12/25 Status: Ordered Quantity: 90.0 Unit: tablet Repeat number: 1 apixaban 2.5 mg oral tablet = 2.5 mg, By Mouth, 2 times a day, # 180 tablet, 3 Refills, Maintenance, 05/03/25 5:29:00 PM EDT, Tablet, [facility], Partial fill upon patient request if the prescription is for a scheduleII opioid drug., 172, cm, 04/28/25 14:45:00 EDT, Height, 78.2, kg, 04/05/25 17:53:00 EDT, Dry Weight Start Date: 05/03/25 Stop Date: 04/28/26 Status: Ordered Quantity: 180.0 Unit: tablet Repeat number: 4 DIURETIC INTERVENTION [...] 1 capsule = 10 mg, By Mouth, Daily at bedtime, 0 Refills, Maintenance, 09/23/23 1:33:00 PM EST, Partial fill upon patient request if the prescription is for a schedule II opioid drug. Start Date: 09/23/23 Status: Ordered Repeat number: 1 eplerenone 25 mg oral tablet 1 tablet = 25 mg, By Mouth, Daily, # 90 tablet, 0 Refills, Maintenance, 04/02/25 2:33:00 PM EDT, Tablet, [facility], replaced Kcl, 173, cm, 04/01/25 8:05:00 EDT, Height, 80.2, kg, 03/30/25 15:11:00 EDT, Dry Weight Start Date: 04/02/25 Status: Ordered Quantity: 90.0 Unit: tablet Repeat number: 1 famotidine 20 mg oral tablet 20 mg, 1, tablet, By Mouth, 2 times a day, # 60 tablet, Refills 0, Maintenance, 07/02/21 7:11:00 PM EDT, Partial fill upon patient request if the prescription is for a schedule II opioid drug. Start Date: 07/02/21 Status: Ordered Quantity: 60.0 Unit: tablet Repeat number: 1 hydrALAZINE 10 mg oral tablet 10 mg, 1, tablet, By Mouth, 3 times a day after meals, # 270 tablet, Refills 3, Tot. Refills 3, Maintenance, 08/07/24 9:44:00 AM EDT, Route to Pharmacy Electronically, [facility], Partial fill upon patient request if the prescription is for a schedule II opioid drug., 172, cm, 04/29/24 16:38:00 EDT, Height, 73, kg, 09/25/23 16:52:00 EST, Dry Weight Start Date: 08/07/24 Stop Date: 08/02/25 Status: Ordered Quantity: 270.0 Unit: tablet Repeat number: 4 isosorbide mononitrate 30 mg oral tablet, extended release 30 mg, 1, tablet, By Mouth, 2 times a day, # 60 tablet, Refills 0, Tot. Refills 0, Maintenance, 05/06/25 12:55:00 PM EDT, Route to Pharmacy Electronically, [facility], Partial fill upon patient request if the prescription is for a schedule II opioid drug., 172, cm, 04/28/25 14:45:00 EDT, Height, 78.2, kg, 04/05/25 17:53:00 EDT, Dry Weight Start Date: 05/06/25 Status: Ordered Quantity: 60.0 Unit: tablet Repeat number: 1 levothyroxine 0.1 mg oral tablet 1 tablet = 100 mcg, By Mouth, Daily, # 30 tablet, 0 Refills, Maintenance, 03/29/25 4:46:00 PM EDT, Tablet, Partial fill upon patient request if the prescription is for a schedule II opioid drug. Start Date: 03/29/25 Status: Ordered Quantity: 30.0 Unit: tablet Repeat number: 1 metolazone 2.5 mg oral tablet 1, tablet, By Mouth, Every , # 13 tablet, Refills 1, Tot. Refills 1, Maintenance, 04/02/25 2:34:00 PM EDT, Route to Pharmacy Electronically, [facility], dose change, 173, cm, 04/01/25 8:05:00 EDT, Height, 80.2, kg, 03/30/25 15:11:00 EDT, Dry Weight Start Date: 04/02/25 Stop Date: 09/29/25 Status: Ordered Quantity: 13.0 Unit: tablet Repeat number: 2 Oral Mandibular Advancement Device Oral Mandibular Advancement Device, See Instructions, # 1 each, Refills 0, Tot. Refills 0, Maintenance, Use when sleeping to treat sleep apnea G47.33, 12/17/24 5:25:00 PM EST, Supply Start Date: 12/17/24 Status: Ordered Quantity: 1.0 Unit: each Repeat number: 1 Indications: Obstructive sleep apnea (adult) (pediatric); Please have your labwork for chemistries and [...] Quantity: 1.0 Unit: each Repeat number: 1 Probiotic Formula By Mouth, Daily, 0 Refills, Maintenance, 12/12/22 1:27:00 PM EST, Partial fill upon patient request if the prescription is for a schedule II opioid drug. Start Date: 12/12/22 Status: Ordered Repeat number: 1 Toprol XL 25 mg oral tablet, extended release 25 mg, By Mouth, Daily, # 90 tablet, Refills 3, Tot. Refills 3, Maintenance, 05/03/25 5:31:00 PM EDT, Route to Pharmacy Electronically, [facility], Partial fill upon patient request if the prescription is for a schedule II opioid drug., 172, cm, 04/28/25 14:45:00 EDT, Height, 78.2, kg, 04/05/25 17:53:00 EDT, Dry Weight Start Date: 05/03/25 Stop Date: 04/28/26 Status: Ordered Quantity: 90.0 Unit: tablet Repeat number: 4 torsemide 20 mg oral tablet See Instructions, TAKE 4 TABLETS BY MOUTH TWICE DAILY SATURDAY-SATURDAY AND TAKE 2 TABLETS BY MOUTH TWICE DAILY SATURDAY-SATURDAY, # 160 tablet, 5 Refills, Maintenance, 12/17/24 10:50:00 AM EST, [facility], 175, cm, 11/23/24 17:00:00 EST, Height, 74.5, kg, 08/03/24 13:23:00 EDT, Dry Weight Start Date: 12/17/24 Status: Ordered Quantity: 160.0 Unit: tablet Repeat number: 1 Problem List [...] Former smoker, quit more than 30 days ago entered on: 03/30/25 Sex Sex Representation Male (finding) Patient Care team information Care Team Personnel Name: Chayito Leary Position: S RN Supv Member Role: Primary Care Nurse Name: Tucker Odom RN Position: S RN Member Role: Primary Care Nurse Name: Hailee Colón RN Position: S RN Member Role: Primary Care Nurse Name: Elizabeth Petit RN Position: S RN Member Role: Primary Care Nurse Name: Tanvi Huitron RN Position: S RN Member Role: Primary Care Nurse Name: Sophia Bell RN Position: S RN Member Role: Primary Care Nurse Care Team Related Persons Name: EFRAIN VERNON Insurance Providers Guarantor name: [facility] Information #: 1 Payer: MEDICARE B Payer Identifier: ARNOLDO Member Number: [id number] Group Number: Subscriber Identifier: [id number] Relationship to Subscriber: self Coverage Type: NA Coverage Verification Date: Telecom: Address: [facility] Information #: 2 Payer: [facility] Payer Identifier: ARNOLDO Member Number: [id number] Group Number: [id number] Subscriber Identifier: [id number] Relationship to Subscriber: self Coverage Type: Medicare Other Coverage Verification Date: Telecom: Address:
--- OUTSIDE RECORDS SUMMARY | 2025-05-09 23:59 | XMS_ITS | Continuity of Care Document ---
Author Organization [facility] Address [address] [place] [address]- Support Name Relationship Address Phone EFRAIN VERNON spouse Unknown Unavailable EFRAIN BARONE Personal Relationship Unknown Unav ailable JANEEN, EFRAIN spouse Unknown Unavailable JANEEN, EFRAIN spouse Unknown Unavailable Encounter [facility] Date(s): 04/09/25 - 05/09/25 [facility] [address] [place] [id number] Encounter Type: Triage Allergies, Adverse Reactions, Alerts [...] 09/11/13 Jaspreet rded influenza virus vaccine, inactivated 11/20/12 Jaspreet rded zoster vaccine, inactivated 06/22/19 Recorded zoster vaccine, inactivated 04/09/19 Recorded pneumococcal 23-valent vaccine 03/20/17 Recorded pneumococcal 13-valent vaccine 05/06/15 Recorded tetanus/diphtheria/pertussis, acel(Tdap) 09/13/14 Recorded Medications amiodarone 200 mg oral tablet 200 mg, 1, tablet, By Mouth, Daily, # 90 tablet, Refills 3, Tot. Refills 3, Maintenance, 05/25/24 3:17:00 PM EDT, Route to Pharmacy Electronically, [facility], Partial fill upon [...] 12:06:00 PM EDT, Route to Pharmacy Electronically, [facility], 175, cm, 02/10/25 15:54:00 EDT, Height, 74.5, kg, 08/03/24 13:23:00 EDT, Dry Weight Start Date: 02/12/25 Status: Ordered Quantity: 90.0 Unit: tablet Repeat number: 1 apixaban 2.5 mg oral tablet = 2.5 mg, By Mouth, 2 times a day, # 180 tablet, 3 Refills, Maintenance, 05/03/25 5:29:00 PM EDT, Tablet, [facility], Partial fill upon [...] Refills, Maintenance, 04/02/25 2:33:00 PM EDT, Tablet, [facility], replaced Kcl, 173, cm, 04/01/25 [...] 9:44:00 AM EDT, Route to Pharmacy Electronically, [facility], Partial fill upon [...] 12:55:00 PM EDT, Route to Pharmacy Electronically, [facility], Partial fill upon [...] 2:34:00 PM EDT, Route to Pharmacy Electronically, [facility], dose change, 173, cm, 04/01/25 [...] 5:31:00 PM EDT, Route to Pharmacy Electronically, [facility], Partial fill upon [...] 5 Refills, Maintenance, 12/17/24 10:50:00 AM EST, [facility], 175, cm, 11/23/24 [...] Name: EFRAIN VERNON Insurance Providers Guarantor name: [facility] Plan Information #: 1 Payer: MEDICARE B Payer Identifier: ARNOLDO Member Number: [id number] Group Number: Subscriber Identifier: [id number] Relationship to Subscriber: self Coverage Type: NA Coverage Verification Date: Telecom: Address: Health Plan Information #: 2 Payer: [facility] Payer Identifier: ARNOLDO Member Number: [id number] Group Number: [id number] Subscriber Identifier: [id number] Relationship to Subscriber: self Coverage Type: Medicare Other Coverage Verification Date: Telecom: Address:
--- NOTE | 2025-05-11 14:04 | HO.NEPHOV ---
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 He has H/O no significant proteinuria and has a bland UA. Etiology of his CKD has been unclear with ddx possibilities including prior SHAAN with incomplete recovery, AIN associated with crohn's or sulfasalazine, nonproteinuric DKD, nephrosclerosis, and CRS. Despite optimization of his volume status using the cardiomems device his creatinine has remained at about 3.8-4 mg/dl which had gone up recently but improved on diuresis during recent hospitalization. He had been having low K and is on K replacement. He is not uremic. He tells me that since increasing isosorbide, he has had a significant improvement in his SOB and endurance. He has been off of sulfasalazine and his crohn's is quiescent.He went for modality education in the past and is planning for in-center and later eventually home HD. He undertook venous mapping and needs to have the AVF placed when the timing is right. His last eGFR was close to 14 cc/min . He has seen Dr. Aiken who suggested an AV graft when he gets close to initiation of renal replacement.His GFR had been fluctuant based on the dose of diuretics he takes( adjusted by Dr Granados). [facility] Medical History (Updated 04/08/25 @ 21:52 by Merritt Daugherty MD) Type 2 diabetes mellitus Congestive heart failure Hypertension Chronic kidney disease Surgical History S/P placement of cardiac pacemaker S/P rotator cuff repair History of appendectomy History of colectomy History of hip replacement Social History Alcohol intake: never Patient Tobacco Use Status: Former Tobacco user Review of Systems Const All systems reviewed & are unremarkable except as noted in HPI and below Physical Exam Vital Signs: Last Vital Signs Pulse 50 05/11/25 14:08 BP 100/60 05/11/25 14:08 Pulse Ox 98 05/11/25 14:08 Oxygen Delivery Method Room Air 05/11/25 14:08 BMI result Body Mass Index 26.7 Const General: comfortable and no acute distress Orientation/consciousness: patient oriented x3 HEENT Head: Yes normocephalic Mouth: Normal oral and palatal mucosa present Eyes EOM: EOMs intact bilaterally Neck Neck: Yes supple Resp Auscultation: clear to auscultation bilaterally Cardio Jugular venous distension: no JVD Rate: regular rate GI Palpation (GI): Soft to palpation Auscultation: normal bowel sounds General: Yes no CVA tenderness Back/Spine/Pelvis Back: no CVA tenderness Skin General skin exam: no rashes or lesions noted Neuro General: patient oriented x3 and moves all extremities Extrem General: Yes no pedal edema Assessment & Plan Assessment & Plan (1) Secondary hyperparathyroidism (of renal origin): Code(s): N25.81 - Secondary hyperparathyroidism of renal origin Category: Medical (2) CKD (chronic kidney disease) stage 5, GFR 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 ml/min: Code(s): N18.5 - Chronic kidney disease, stage 5 Category: Medical (3) Anemia in chronic kidney disease (CKD): Code(s): N18.9 - Chronic kidney disease, unspecified; D63.1 - Anemia in chronic kidney disease Category: Medical Qualifiers: Chronic kidney disease stage: stage 5, not on chronic dialysis Qualified Code(s): N18.5 - Chronic kidney disease, stage 5; D63.1 - Anemia in chronic kidney disease (4) Hypertension: Code(s): I10 - Essential (primary) hypertension Category: Medical Qualifiers: Hypertension type: primary hypertension Qualified Code(s): I10 - Essential (primary) hypertension Plan 80 yo man with stage 5 CKD, potential etiologies could be multiple for his CKD but not very clear. He has no proteinuria. He had decline in GFR recently either due to progression of his renal disease or due to low BP's. He feels better since isosorbide has been increased. He is with Cardiomems . He appeared euvolemic and is no longer on sulfasalazine. UA is bland. Doppler is negative for ASTRID. I don't see any benefit to biopsy in this setting. We discussed home HD and he has interest in this but would like to start in center, initially. I had modality education. He is not uremic and remains diuretic responsive. He has seen Dr. Aiken who strongly feels he will be a great candidate for AV graft which could be put in when he is close to initiation of renal replacement. He has anemia chronic kidney disease and will need Procrit in the future to keep his hemoglobin close to 11 grams/deciliter. He is closely followed up with heart failure clinic in [facility] and has a CardioMEMS in place. I did not make any medication changes today. F/U given Orders: Orders Creatinine 6 Weeks D63.1 - Anemia in chronic kidney disease, I10 - Essential (primary) hypertension, N18.5 - Chronic kidney disease, stage 5, N25.81 - Secondary hyperparathyroidism of renal origin Blood Urea Nitrogen 6 Weeks D63.1 - Anemia in chronic kidney disease, I10 - Essential (primary) hypertension, N18.5 - Chronic kidney disease, stage 5, N25.81 - Secondary hyperparathyroidism of renal origin Electrolytes 6 Weeks D63.1 - Anemia in chronic kidney disease, I10 - Essential (primary) hypertension, N18.5 - Chronic kidney disease, stage 5, N25.81 - Secondary hyperparathyroidism of renal origin Calcium 6 Weeks D63.1 - Anemia in chronic kidney disease, I10 - Essential (primary) hypertension, N18.5 - Chronic kidney disease, stage 5, N25.81 - Secondary hyperparathyroidism of renal origin Ferritin 6 Weeks D63.1 - Anemia in chronic kidney disease, I10 - Essential (primary) hypertension, N18.5 - Chronic kidney disease, stage 5, N25.81 - Secondary hyperparathyroidism of renal origin Phosphorus 6 Weeks D63.1 - Anemia in chronic kidney disease, I10 - Essential (primary) hypertension, N18.5 - Chronic kidney disease, stage 5, N25.81 - Secondary hyperparathyroidism of renal origin Complete Blood Count Auto Diff 6 Weeks D63.1 - Anemia in chronic kidney disease, I10 - Essential (primary) hypertension, N18.5 - Chronic kidney disease, stage 5, N25.81 - Secondary hyperparathyroidism of renal origin IRON PROFILE 6 Weeks D63.1 - Anemia in chronic kidney disease, I10 - Essential (primary) hypertension, N18.5 - Chronic kidney disease, stage 5, N25.81 - Secondary hyperparathyroidism of renal origin Coding Level of Care Code Est Pt Level 4 (92268) Diagnoses Secondary hyperparathyroidism (of renal origin) N25.81 CKD (chronic kidney disease) stage 5, GFR 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
[2025-05-11 14:08] VITALS: BP 100/60; PULSE 50; O2SAT 98; BMI 26.7
--- OUTSIDE RECORDS SUMMARY | 2025-05-11 14:56 | XMS_ITS | Clinical Summary ---
Author Organization [facility] Address [address] [place], [place] [address] Care Team Providers Care Commercial Lines Manager Name Role Phone Lucita Way MD Unavailable Loy Henriquez MD Unavailable [phone] Allergies Active Allergy Reactions Criticality Noted Date Comments Diltiazem Hcl Unknown Metformin Other (See Comments) Other Reaction(s): nausea with short acting metformin Penicillins Other (See Comments) Other Reaction(s): Unspecified childhood rxn; has tolerated amoxicillin without problems Medications aspirin-dipyridam ole (AGGRENOX) 25-200 mg per capsule 1 capsule(s) by mouth twice a day 05/26/2020 Active carvediloL (COREG) 12.5 MG tablet 1 tablet(s) by mouth twice a day 05/26/2020 Active amitriptyline (ELAVIL) 25 MG tablet 1 tablet(s) by mouth qpm 05/26/2020 Active multivitamin capsule 1 Capsule(s) by mouth qam 05/26/2020 Active famotidine (PEPCID) 20 MG tablet 1 tablet(s) by mouth twice a day 05/26/2020 Active lactobacillus combination no.4 (PROBIOTIC) 3 billion cell cap capsule(s) oral 05/26/2020 Active metFORMIN ER 500 MG 24 hr tablet 2 tablet(s) by mouth twice a day 05/26/2020 Active lisinopril-hydroC HLOROthiazide (PRINZIDE,ZESTORE TIC) 20-12.5 mg per tablet 1 tablet(s) by mouth qam 05/26/2020 Active Social History Tobacco Use Types Packs/Day Years Used Date Smoking Tobacco: Never Assessed Sex and Gender Information Value Date Recorded Sex Assigned at Male 12/05/2023 11:40 PM EST Legal Sex Male 11:40 PM EST Gender Identity Male 12/05/2023 11:40 PM EST Sexual Orientation Not on file Plan of Treatment Health Maintenance Due Date Last Done Comments Blood Pressure 1945 Depression Screening 1949 DTaP,Tdap,and Td Vaccines (1 - Tdap) 02/10/1964 Pneumococcal Vaccine (1 of 1 - PCV) 1995 Zoster Vaccine (1 of 2) 1995 COVID-19 Vaccine (1 - 2023-2 5 season) 2024 Influenza Vaccine (#1) 2025 Meningococcal B Vaccines Aged Out No longer eligible based on patient's age to complete this topic Meningococcal Vaccines Aged Out No lo nger eligible based on patient's age to complete this topic Care Teams Commercial Lines Manager Relationship Specialty Start Date End Date Lucita Way MD [address] [place] [address] PCP - Insurance Assigned PCP 01/25/23 Loy Henriquez MD [address] [place] [address] Cardiology 03/21/24
--- OUTSIDE RECORDS SUMMARY | 2025-05-11 14:56 | XMS_ITS | Clinical Summary ---
Author Organization [facility] Address [address] [place] [address] Care Team Providers Care Cycle Liaison Name Role Phone Lucita Way MD Primary Care Provider [phone] Allergies Active Allergy Reactions Criticality Noted Date [...] Adults 18 yrs or above (or HM Modifier)([facility]) 1963 SDOH Screening Reminder: Dot levin for all adults ([facility]) 1963 Tobacco Smoking Cessation: i n Adults excluding Women: Behavioral and Pharmacotherapy Interventions ([facility]) 1963 Lung Cancer: Screening Tia galarza in adults aged 50 to 80 years (or HM Modifiers)([facility]) 1995 Zoster/Shingles Vaccine Seri es Screening: Adults aged 18+ yrs (or HM Modifiers)([facility]) (1 of 2) 1995 Pneumococcal Vaccination Scr eening: Patients 50+ yrs of age ([facility]) (2 of 2 - PCV) 03/20/2018 03/20/2017, 04/11/2009 RSV Vaccines (1 - 1-dose 75+ series) 02/10/2020 COVID-19 Vaccine Screening: Initial Series and Booster Status ([facility]) ( - 2023- season) 2024 DTaP/Tdap/Td Vaccines ([facility]) (2 - Td or Tdap) 09/13/2024 09/13/2014 Flu Vaccination: Ages 65+: Y early High Dose Recommended (or Modifier)([facility]) 05/21/2025 08/12/2018, 08/19/2017, 10/03/2016, Additional history exists Medical Devices Not on file Insurance MEDICARE [facility] Care Teams Cycle Liaison Relationship Specialty Start Date End Date Lucita Way MD [facility] [address] [facility] [address] [place] [address] PCP - General Internal Medicine 05/10/21
--- OUTSIDE RECORDS SUMMARY | 2025-05-11 14:56 | XMS_ITS | Clinical Summary ---
Author Organization [facility] Address [address] [facility] [address] [place] [address] Phone Care Team Providers Care Mechanical Operator Name Role Phone Unavailable Primary Care Provider [...] Hypertensive heart disease without heart failure 04/11/2021 snf current use of oral hypoglycemic drug 04/11/2021 Other fatigue 04/11/2021 Palpitations 04/09/2021 Diverticulosis of large inte justin without perforation or abscess without bleeding 08/29/2017 Overview (01/08/2023): 08/22/17, Dr. Morgan, [facility], pathology neg. Repeat in 5 year. [...] renal cysts are stable. Dr. Garza. 02/21/2015, [facility], Dr. Morgan There are multiple bilateral renal [...] Pt is discharged by Dr. Garza. 02/21/2015, [facility], Dr. Morgan There are multiple bilateral renal [...] Crohn's disease 04/17/2010 Overview (01/08/2023): Dr. Morgan. [facility]-06/30/2001, colonic mucosa displaying focal congestion in lamina propria [facility]-07/07/2009, inflammatory polyp with focal lymphoid hyperplasia. [facility]-07/14/2012, well controlled colitis. And patent anastomosis from prior sigmoid resection. Mild diverticulosis, int. Hemorrhoids. Mild inflammation of the IC valve C/W known Crohn's. 06/28/2013, ED/EH, colitis flare-up. Switch from SULFASALAZINE to mesalamine. Tx with prednisone, started at 40 mg. 08/22/17, Dr. Morgan, [facility], pathology neg. Repeat in 5 year. Int. hemorrhoid and sig+gen diverticulosis. Based on record review by Postage Machine Operator and clinical documentation. [facility]/Dr Morgan office [...] LDL < 70 according to rec. From [employer]. -pt reports that Dr. Henriquez [...] mellitus 04/17/2010 Overview (01/08/2023): 09/27, no Immunizations Immunization Administration Dates Next Due Influenza Split High [...] Last Done Comments Diabetes: Hemoglobin A1C 11/07/2022 04/12/2018 Diabetes: Ophthalmology Exam 11/07/2022 Diabetes: Pedal Pulse Checked 11/07/2022 Diabetes: Sensory Foot Exam 11/07/2022 Diabetes: Visual Foot Exam 11/07/2022 Influenza Vaccine (#1) 2025 , 09/05/2023, 08/12/2022, Additional history exists Pneumococcal Vaccine: 50+ Years Completed 03/20/2017, 05/06/2015, 04/11/2009, Additional history exists Hepatitis B Vaccine Aged Out 12/16/2024 No longe r eligible based on patient's age to complete this topic Insurance Medicare [facility] Medicare [facility]
--- OUTSIDE RECORDS SUMMARY | 2025-05-11 14:56 | XMS_ITS | Clinical Summary ---
Author Organization [facility] Address [address] [facility] [address] [place] [address] Phone Care Team Providers Care Mold Yard Worker Name Role Phone Lucita Way MD Unavailable Lucita Way MD Primary Care Provider [phone] Chloe Patel RN Unavailable [email or web address] Allergies Active Allergy Reactions Criticality Noted Date Comments Clindamycin Hcl High 07/15/2020 Other reaction(s): Severe heartburn Diltiazem 04/17/2010 Do not rememmbered Metformin (Bulk) 06/04/2012 Diarrhea. Switched to metformin ER Medications amitriptyline (ELAVIL) 25 MG tablet Take 25 mg by mouth nightly at bedtime. Active famotidine (PEPCID) 20 MG tablet Take 20 mg by mouth 2 (two) times a day. Active torsemide (DEMADEX) 20 MG tablet Take 80 mg by mouth. 04/15/20 23 Active cyanocobalamin, vitamin B-12, 1000 MCG tablet Take 1,000 mcg by mouth. Active amiodarone (PACERONE) 200 MG tablet Take 200 mg by mouth. 06/04/20 22 Active Bacillus coagulans-inuli n (PROBIOTIC FORMULA, INULIN,) 1 billion-250 cell-mg Cap Take by mouth. 12/12/19 23 Active isosorbide mononitrate (IMDUR) 30 MG 24 hr tablet Take 30 mg by mouth every morning. 07/26/20 23 Active hydrALAZINE (APRESOLINE) 10 MG tablet TAKE 1 TABLET BY MOUTH THREE TIMES DAILY AFTER A MEAL Active clobetasol (TEMOVATE) 0.05 % ointment Apply topically 2 (two) times a day. 60 g 2 12/17/19 24 Active potassium chloride (MICRO-K) 10 mEq CR capsule Take 10 mEq by mouth. 02/10/20 24 Active metOLazone (ZAROXOLYN) 2.5 MG tablet 06/09/20 24 Active fluticasone propionate (FLONASE) 50 mcg/actuation nasal spray 50 mcg by Nasal route. 04/28/20 24 Active azelaic acid (FINACEA) 15 % gelIndications: Other rosacea Apply to affected areas of face twice daily. 50 g 11 08/18/20 24 Active metroNIDAZOLE (METROCREAM) 0.75 % creamIndication s:Other rosacea Apply topically 2 (two) times a day. 45 g 2 08/18/20 24 Active fluticasone propionate (FLONASE) 50 mcg/actuation nasal spray Use 2 spray(s) in each nostril once daily 16 g 08/24/20 24 Active levothyroxine (SYNTHROID, LEVOTHROID) 100 MCG tabletIndicatio ns:Hypothyroidi sm due to medication TAKE 1 TABLET BY MOUTH ONCE DAILY IN THE MORNING 30 tablet 5 12/14/19 25 Active TOPROL XL 25 mg 24 hr tablet Take 25 mg by mouth daily. 04/06/20 25 Active doxepin (SINEQUAN) 10 MG capsule TAKE 1 CAPSULE BY MOUTH NIGHTLY AT BEDTIME 30 capsule 04/16/20 25 Active eplerenone (INSPRA) 25 MG tablet Take 25 mg by mouth daily. Active apixaban (ELIQUIS) 2.5 mg Take 2.5 mg by mouth 2 (two) times a day. Active apixaban (ELIQUIS) 5 mg tablet Take 5 mg by mouth 2 (two) times a day. 12/14/19 23 025 Discontinued(No longer taking) amLODIPine (NORVASC) 10 MG tablet Take 10 mg by mouth daily. 025 Discontinued(No longer taking) Medication-Free TextIndications :Need for hepatitis B vaccination Hep B vaccine # 2 (last Hep B vaccine was given on 12/16/24, Engerix -B) 1 Dose 01/19/20 25 025 Discontinued(No longer taking) doxepin (SINEQUAN) 10 MG capsule TAKE 1 CAPSULE BY MOUTH NIGHTLY AT BEDTIME 30 capsule 03/22/20 25 025 Discontinued Active Problems Patient Care Coordination No te Formatting of this note migh t be different from the original. Patient is high risk for these reasons: pacemaker, Diastolic HF with preserved EF- s/p cardiomems implantation on 05/17/23, DM; CKD V Living Situation: Lives in single family home with in [place], [place] Functional Status (ADL's/iADLs): Independent with ADLs/ IADLs, drives Family/Social Supports: supportive Efrain Goals of Care (HCP/Molst): Full Code (06/05/23); HCP- Efrain Fierro () [phone] Is this patient appropriate for the Serious Illness Conversation? no Community Supports (e.g. VNA, DME Vendors, Elder Services): cardiac rehab Transportation: drives and also drives Medication Management System/Specialized Pharmacy Needs: self Financial Concerns: not in general but does have difficulty affording some recommended medications Other Supports and Care Needs: Followed by a park warden at [facility] and gradually transitioning to specialists as well as PCP in the [place] area but currently Dr. Way as his primary care provider. Tap Out Operator is Dr. Mena at [facility]; Dr Crawford is HF specialist at [facility].. Frequently hospitalized at [facility] and [facility]. PCP : Dr. Dimple Way Lace Winder:Dr. Fontenot also rec outpatient PFT and sleep study. HEART Failure- Dr. Granados. GI: Dr. Dr Estefany Youngblood ([facility], [address], [address], [place] [address] --- [phone]). Ophthalm: Dr. Hannah GARZON OD Tap Out Operator: Nephro: Dr Merritt Daugherty ([facility] [address] [place] [address], [address], [place] [address] --- [phone]). Dermatology: Dr. Alexander. 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 Garza Hypertrophic cardiomyopathy 04/17/201003/21 Overview (04/02/2023): 08/2008, Unclear etiology. [...] renal cysts are stable. Dr. Garza. 02/21/2015, [facility], Dr. Morgan There are multiple bilateral [...] Pt is discharged by Dr. Garza. 02/21/2015, [facility], Dr. Morgan There are multiple bilateral [...] complication 04/17/2010 04/02/2023 Overview (04/02/2023): Dr. Morgan. [facility]-06/30/2001, colonic mucosa displaying focal congestion in lamina propria [facility]-07/07/2009, inflammatory polyp with focal lymphoid hyperplasia. [facility]-07/14/2012, well controlled colitis. And patent anastomosis from prior sigmoid resection. Mild diverticulosis, int. Hemorrhoids. Mild inflammation of the IC valve C/W known Crohn's. 06/28/2013, ED/EH, colitis flare-up. Switch from SULFASALAZINE to mesalamine. Tx with prednisone, started at 40 mg. 08/22/17, Dr. Morgan, [facility], pathology neg. Repeat in 5 year. Int. hemorrhoid and sig+gen diverticulosis. Based on record review by Web Mobile Designer and clinical documentation. [facility]/Dr Morgan office [...] LDL < 70 according to rec. From [employer]. -pt reports that Dr. Pelaez [...] Encounters Date Type Department Care Team Description 05/04/2025 12:20 PM EDT Follow-Up [facility] [address] MD Chronic combined systolic and diastolic congestive heart failure (Primary Dx); History of ventricular tachycardia; History of hypokalemia; Hypertrophic cardiomyopathy; Orthostatic dizziness; CKD (chronic kidney disease) stage 5, GFR 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 ml/min; Essential hypertension; Sleep disturbance; WILLIE (obstructive sleep apnea); Vaccine counseling 04/16/2025 Patient Outreach [facility], [facility] Care Management [address] [facility] [address], [place] [address] Chloe Patel, CELINA Care Coordination (Follow up after hospitalization) 04/16/2025 Refill [facility] [address] MD Medication Refill 04/14/2025 Telephone [facility] [address] [address] Kala Ackerman [place] 04/13/2025 Patient Outreach [facility], [facility] Care Management [address] [facility] [address], [place] [address] Chloe Patel, CELINA Post Discharge Follow Up Call ([facility] re-admit protocol ) 04/07/2025 Patient Outreach [facility], [facility] Care Management [address] [facility] [address], [place] [address] Chloe Patel, CELINA Post Discharge Follow Up Call (D/C from [facility] on 04/06- CHF) 04/07/2025 Telephone [facility], [facility] Care Management [address] [facility] [address] [address] Chloe Patel, CELINA Post Discharge Follow Up Call (D/c from [facility] on 04/06- CHF) 04/05/2025 [facility] Care Management [address] [place] [address] Celi Starr [facility] Post-discharge Medication Reconciliation 04/05/2025 Patient Outreach [facility], [facility]. Care Management [address] [facility] [address] [place] [address] Chloe Patel, CELINA Care Coordination (Readmitted to [facility] on 04/04 with HF) 04/05/2025 Telephone [facility], [facility]. Care Management [address] [facility] [address] [address] Chloe Patel, CELINA Post Discharge Follow Up Call (D/c from [facility] on 04/01 - CP, HFpEF; CKD; v-tach and hypokalemia) 03/31/2025 Patient Outreach [facility], [facility]. Care Management [address] [facility] [address] [place] [address] Chloe Patel, CELINA Care Coordination (Inpatient at [facility]- tachycardia; hypokemia) 03/29/2025 Patient Outreach [facility], [facility]. Care Management [address] [facility] [address], [place] [address] Chloe Patel, CELINA Care Coordination (Visit to [facility] 03/26 and return to ED today 03/29) 03/29/2025 Telephone [facility], [facility]. Care Management [address] [facility] [address], [place] [address] Chloe Patel, CELINA Post Discharge Follow Up Call (ED visit at [facility] on 03/26 ) 03/21/2025 Refill [facility] [address] [facility] [address] [place] [address] Angel Allred MD Medication Refill from Last 3 Months Immunizations Immunization Administration Dates Next Due COVID-19 (Pre-08/12) Pfizer Vaccine, mRNA, PF 08/02/2021,08/01/2021,12/23/2020,12/02 COVID-19 Pfizer Comirnaty Vaccine 12+ 07/10/2024 [id number] FORMULATION 12/12/2009 Hepatitis B Adult 12/16/2024 Influenza [...] at Not on file Legal Sex Male 5:14 PM EST Gender Identity Not on file Sexual Orientation Not on file Last Filed Vital Signs Vital Sign Reading Time Taken Comments Blood Pressure 137/72 05/04/2025 12:04 PM EDT Pulse 49 05/04/2025 12:04 PM EDT Temperature 36.7 C (98 F) 05/04/2025 12:04 PM EDT Respiratory Rate - - Oxygen Saturation 99% 05/04/2025 12:04 PM EDT Inhaled Oxygen Concentration - - Weight 79.4 kg (175 lb) 05/04/2025 12:04 PM EDT Height 172.7 cm (5' 8 ) 12/16/2024 2:12 PM EST Body Mass Index 26.61 12/16/2024 2:12 PM EST Plan of Treatment Upcoming Encounters Date Type Department Care Team (Late st Contact Info) Description 06/30/2025 2:20 PM EDT Follow-Up [facility] [address] [place] [address] MD [address] [place] [address] 08/17/2025 1:40 PM EDT Office Visit Adult & Pediatric Dermatology, [address] [facility] [address] [place] [address] Isabel Alexander MD [address] [place] [address] [email or web address] Health Maintenance Due Date Last Done Comments SMOKING Hx and SMOKELESS TOBACCO SCREENING 1958 DIABETIC EYE EXAM 04/02/2023 COVID-19 VACCINE ( season) 2025 07/10/2024, 09/05/2023, 10/09/2022, Additional history exists HEMOGLOBIN A1C 05/27/2025 11/27/2024, 11/21, 12/04/2023, Additional history exists BLOOD PRESSURE 11/04/2025 05/04/2025 CREATININE LEVEL 11/13/2025 11/13/2024, , 06/01/2024, Additional [...] Completed 06/22/2019, 11/2018, 04/09/2019, Additional history exists RSV VACCINE Completed 09/10/2024 [...] age to complete this topic MENINGOCOCCAL VACCINES (B) Aged Out N o longer eligible based on patient's age to complete this topic Medical Devices Not on file Procedures Procedure Name Priority Date/Time Associated Diagnosis Comments OUTSIDE HEMOGLOBIN A1C Routine 11/27/2024 OUTSIDE HDL Routine 11/27/2024 OUTSIDE TSH LEVEL Routine 11/27/2024 OUTSIDE POTASSIUM LEVEL Routine 11/27/2024 OUTSIDE ALT LEVEL Routine 11/27/2024 OUTSIDE SERUM CREATININE LEVEL Routine 06/03/2024 from Last 3 Months or Most Recently Relevant to Health Maintenance Results * Outside TSH Level (11/27/2024) Pathologist [facility] TSH - External 0.812 0.5 - 5 uIU/L Result [facility] MD LAB BLOOD ORDERABLES Ruby l Result * Outside Potassium Level (11/27/2024) Pathologist [facility] Potassium level - External 3.8 3.4 - 5.0 mmol/L Result [facility] MD LAB BLOOD ORDERABLES Ruby l Result * Outside HbA1c (11/27/2024) Pathologist [facility] Hemoglobin A1c - External 6.1 % Result [facility] MD LAB BLOOD ORDERABLES Ruby l Result * Outside ALT Level (11/27/2024) Pathologist [facility] ALT - External 9 5 - 30 U/L Result [facility] MD LAB BLOOD ORDERABLES Ruby l Result * Outside HDL (11/27/2024) Pathologist [facility] HDL - External 43 40 - 80 mg/dL Result [facility] MD LAB BLOOD ORDERABLES Ruby l Result * (ABNORMAL) Outside Serum Creatinine Level (06/03/2024) Pathologist [facility] Creatinine, serum - External 4.06(A) 0.8 - 1.3 mg/dL Result [facility] MD LAB BLOOD ORDERABLES Ruby l Result from Last 3 Months or Most Recently Relevant to Health Maintenance Insurance [employer] OUT OF STATE PPO MEDICARE PART A & B [employer] OUT OF [employer] PPO MEDICARE PART A & B [facility] PPO MEDICARE PART A & B [facility] & B [facility] PPO MEDICARE PART A & B OUT OF STATE PPO MEDICARE PART A & [place] [address] [address] [place] [address] OUT [facility] PPO MEDICARE PART A & B [employer] PPO MEDICARE PART A & B [employer] PPO MEDICARE PART A & B [facility] PPO MEDICARE PART A & B Advance Directives For more information, please contact: [phone] (9AM - 5PM Natacha/[facility], Saturday-Saturday) Documents on File Type Date Recorded Patient Wrap Checker Expl anation Healthcare Proxy 04/01/2025 MOLST 04/01/2025 * Full Code (Latest Code Status on File) Date Activated Date Inactivated Comments 06/05/2023 1:10 PM Question Answer Comments Code Status Confirmed With: Patient Code Status Communicated To: PCP Code Discussion Comments: 06/15/19, MOLST -ATTEMPT RESUSCITATION, INTUBATE AND VENTILATE, USE NON-INVASIVE VENTILATION, TRANSFER TO HOSPITAL, USE DIALYSIS, USE ARTIFICIAL NUTRITION, USE ARTIFICIAL HYDRATION. Care Teams Mold Yard Worker Relationship Specialty Start Date End Date Lucita Way MD [address] [place] [address] PCP - General Internal Medicine 11/23/[address] MD [address] [place] [address] Insurance Assigned Provider 01/25/24 Chloe Patel, CELINA [address] [place] [id number] [email or web address] Personal Investment Adviser 08/24/22 Additional Source Comments The information contained in this document represents components of the legal health record. It is not the complete legal health record.[facility]
== END 2025-05-11 14:40 | disposition home or self-care (01) ==
LOC: HO.HKAS 13:46
PROVIDERS: PCP Internal Medicine; Visit Provider Internal Medicine Nephrology
DX: N25.81 Secondary hyperparathyroidism of renal origin (principal); N18.5 Chronic kidney disease, stage 5; D63.1 Anemia in chronic kidney disease; I12.0 Hypertensive chronic kidney disease with stage 5 chronic kidney disease or end stage renal disease
CPT/HCPCS: 99214

== ENCOUNTER → 2025-05-11 13:45 | Outpatient (BNVA) | payer MEDICARE, BC, SELFPAY | PROVIDERS: PCP Internal Medicine; Visit Provider Internal Medicine Nephrology | DX: I12.9 Hypertensive chronic kidney disease with stage 1 through stage 4 chronic kidney disease, or unspecified chronic kidney disease (principal); N18.5 Chronic kidney disease, stage 5; D63.1 Anemia in chronic kidney disease; N25.81 Secondary hyperparathyroidism of renal origin | CPT/HCPCS: 99212 ==

== ENCOUNTER 2025-07-13 13:54 | Outpatient (AMB) | payer MEDICARE, BC, SELFPAY ==
--- NOTE | 2025-07-13 14:16 | HO.NEPHOV_ITS ---
Vital Signs 07/13/25 14:17 Height 5 ft 8 in Weight 178 lb 6 oz BMI 27.1 BP 110/70 Blood Pressure Location Lt brachial Position Sitting Pulse 50 Pulse Source Pulse Oximeter Pulse Oximetry (%) 98 Oxygen Delivery Method Room Air Intake Visit Reasons: 2MNTH-LVM Academic Intern Required: No Accompanied by: Self / Same As Patient Allergies Penicillins Allergy (Verified 07/13/25 14:17) Unknown HPI Comments Details: Dago is a 80 year old gentleman with advanced CKD in the setting of HF pEF and hypertrophic [employer] CANNING , type II DM, crohn's disease on sulfasalazine for many years and HTN. He has H/O no significant proteinuria and has a bland UA. Etiology of his CKD has been unclear with ddx possibilities including prior SHAAN with incomplete recovery, AIN associated with crohn's or sulfasalazine, nonproteinuric DKD, nephrosclerosis, and CRS. Despite optimization of his volume status using the cardiomems device his creatinine has remained at about 3.8-4 mg/dl which had gone up recently but improved on diuresis during recent hospitalization. He had been having low K and is on K replacement. He is not uremic. He tells me that since increasing isosorbide, he has had a significant improvement in his SOB and endurance. He has been off of sulfasalazine and his crohn's is quiescent.He went for modality education in the past and is planning for in-center and later eventually home HD. He undertook venous mapping and needs to have the AVF placed when the timing is right. His last eGFR was close to 14 cc/min . He has seen Dr. Aiken who suggested an AV graft when he gets close to initiation of renal replacement.His GFR had been fluctuant based on the dose of diuretics he takes( adjusted by Dr Granados). [facility] Medical History (Updated 07/13/25 @ 14:28 by Merritt Daugherty MD) Type 2 diabetes mellitus Congestive heart failure Hypertension Chronic kidney disease Surgical History S/P placement of cardiac pacemaker S/P rotator cuff repair History of appendectomy History of colectomy History of hip replacement Social History Alcohol intake: never Patient Tobacco Use Status: Former Tobacco user Review of Systems Const All systems reviewed & are unremarkable except as noted in HPI and below Physical Exam Vital Signs: Last Vital Signs Pulse 50 07/13/25 14:17 BP 110/70 07/13/25 14:17 Pulse Ox 98 07/13/25 14:17 Oxygen Delivery Method Room Air 07/13/25 14:17 BMI result Body Mass Index 27.1 Const General: comfortable and no acute distress Orientation/consciousness: patient oriented x3 HEENT Head: Yes normocephalic Mouth: Normal oral and palatal mucosa present Eyes EOM: EOMs intact bilaterally Neck Neck: Yes supple Resp Auscultation: clear to auscultation bilaterally Cardio Jugular venous distension: no JVD Rate: regular rate GI Palpation (GI): Soft to palpation Auscultation: normal bowel sounds General: Yes no CVA tenderness Back/Spine/Pelvis Back: no CVA tenderness Skin General skin exam: no rashes or lesions noted Neuro General: patient oriented x3 and moves all extremities Extrem General: Yes no pedal edema Assessment & Plan Assessment & Plan (1) Hypertension: Code(s): I10 - Essential (primary) hypertension Category: Medical Qualifiers: Hypertension type: primary hypertension Qualified Code(s): I10 - Essential (primary) hypertension (2) Secondary hyperparathyroidism (of renal origin): Code(s): N25.81 - Secondary hyperparathyroidism of renal origin Category: Medical (3) CKD (chronic kidney disease) stage 5, GFR 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 ml/min: Code(s): N18.5 - Chronic kidney disease, stage 5 Category: Medical (4) Anemia in chronic kidney disease (CKD): Code(s): N18.9 - Chronic kidney disease, unspecified; D63.1 - Anemia in chronic kidney disease Category: Medical Qualifiers: Chronic kidney disease stage: stage 5, not on chronic dialysis Qualified Code(s): N18.5 - Chronic kidney disease, stage 5; D63.1 - Anemia in chronic kidney disease (5) Iron deficiency: Code(s): E61.1 - Iron deficiency Category: Medical Plan 80 yo man with stage 5 CKD, potential etiologies could be multiple for his CKD but not very clear. He has no proteinuria. He had decline in GFR recently either due to progression of his renal disease or due to low BP's. He feels better since isosorbide has been increased. He is with Cardiomems . He a ppeared euvolemic and is no longer on sulfasalazine. UA is bland. Doppler is negative for ASTRID. I don't see any benefit to biopsy in this setting. We discussed home HD and he has interest in this but would like to start in center, initially. I had modality education. He is not uremic and remains diuretic responsive. He has seen Dr. Aiken who strongly feels he will be a great candidate for AV graft which could be put in when he is close to initiation of renal replacement. He has anemia chronic kidney disease and will need Procrit in the future to keep his hemoglobin close to 11 grams/deciliter. He is closely followed up with heart failure clinic in [facility] and has a CardioMEMS in place. He should start taking iron tablets. I did not make any medication changes today. F/U given Orders: Orders Electrolytes 2 Months D63.1 - Anemia in chronic kidney disease, E61.1 - Iron deficiency, I10 - Essential (primary) hypertension, N18.5 - Chronic kidney disease, stage 5, N25.81 - Secondary hyperparathyroidism of renal origin Blood Urea Nitrogen 2 Months D63.1 - Anemia in chronic kidney disease, E61.1 - Iron deficiency, I10 - Essential (primary) hypertension, N18.5 - Chronic kidney disease, stage 5, N25.81 - Secondary hyperparathyroidism of renal origin Creatinine 2 Months D63.1 - Anemia in chronic kidney disease, E61.1 - Iron deficiency, I10 - Essential (primary) hypertension, N18.5 - Chronic kidney disease, stage 5, N25.81 - Secondary hyperparathyroidism of renal origin Parathyroid Hormone Intact 2 Months D63.1 - Anemia in chronic kidney disease, E61.1 - Iron deficiency, I10 - Essential (primary) hypertension, N18.5 - Chronic kidney disease, stage 5, N25.81 - Secondary hyperparathyroidism of renal origin Vitamin D 25-OH Total 2 Months D63.1 - Anemia in chronic kidney disease, E61.1 - Iron deficiency, I10 - Essential (primary) hypertension, N18.5 - Chronic kidney disease, stage 5, N25.81 - Secondary hyperparathyroidism of renal origin Complete Blood Count Auto Diff 2 Months D63.1 - Anemia in chronic kidney disease, E61.1 - Iron deficiency, I10 - Essential (primary) hypertension, N18.5 - Chronic kidney disease, stage 5, N25.81 - Secondary hyperparathyroidism of renal origin Calcium 2 Months D63.1 - Anemia in chronic kidney disease, E61.1 - Iron deficiency, I10 - Essential (primary) hypertension, N18.5 - Chronic kidney disease, stage 5, N25.81 - Secondary hyperparathyroidism of renal origin Phosphorus 2 Months D63.1 - Anemia in chronic kidney disease, E61.1 - Iron deficiency, I10 - Essential (primary) hypertension, N18.5 - Chronic kidney disease, stage 5, N25.81 - Secondary hyperparathyroidism of renal origin Coding Level of Care Code Est Pt Level 4 (18477) Diagnoses Primary hypertension I10 Hypertension type: primary hypertension Secondary hyperparathyroidism (of renal origin) N25.81 CKD (chronic kidney disease) stage 5, GFR 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 ml/min N18.5 Anemia in stage 5 chronic kidney disease, not on chronic dialysis N18.5; D63.1 Chronic kidney disease stage: stage 5, not on chronic dialysis Iron deficiency E61.1
[2025-07-13 14:17] VITALS: BP 110/70; PULSE 50; O2SAT 98; BMI 27.1
--- OUTSIDE RECORDS SUMMARY | 2025-07-13 17:08 | XMS_ITS | Clinical Summary ---
Author Organization [facility] Address [facility] [address] [place] [address] Phone Care Team Providers Care Manufacturer Agent Name Role Phone Lucita Way MD Unavailable Lucita Way MD Primary Care Provider Chloe Patel RN Unavailable [email or web address] Allergies Active Allergy Reactions Criticality Noted Date Comments Clindamycin Hcl High 07/15/2020 Other reaction(s): Severe heartburn Diltiazem 04/17/2010 Do not rememmbered Metformin (Bulk) 06/04/2012 Diarrhea. Switched to metformin ER Medications torsemide (DEMADEX) 20 MG tablet Take 80 mg by mouth. 3 Active cyanocobalamin, vitamin B-12, 1000 MCG tablet Take 1,000 mcg by mouth. Active amiodarone (PACERONE) 200 MG tablet Take 200 mg by mouth daily. 2 Active Bacillus coagulans-inuli n (PROBIOTIC FORMULA, INULIN,) 1 billion-250 cell-mg Cap Take by mouth. 3 Active isosorbide mononitrate (IMDUR) 30 MG 24 hr tablet Take 30 mg by mouth every morning. 3 Active clobetasol (TEMOVATE) 0.05 % ointment Apply topically 2 (two) times a day. 60 g 2 4 Active metOLazone (ZAROXOLYN) 2.5 MG tablet 4 Active azelaic acid (FINACEA) 15 % gelIndications: Other rosacea Apply to affected areas of face twice daily. 50 g 11 4 Active metroNIDAZOLE (METROCREAM) 0.75 % creamIndication s:Other rosacea Apply topically 2 (two) times a day. 45 g 2 4 Active TOPROL XL 25 mg 24 hr tablet Take 25 mg by mouth daily. 5 Active eplerenone (INSPRA) 25 MG tablet Take 25 mg by mouth daily. Active apixaban (ELIQUIS) 2.5 mg Take 2.5 mg by mouth 2 (two) times a day. Active levothyroxine (SYNTHROID, LEVOTHROID) 100 MCG tabletIndicatio ns:Hypothyroidi sm due to medication TAKE 1 TABLET BY MOUTH ONCE DAILY IN THE MORNING 30 tablet 5 5 Active gabapentin (NEURONTIN) 100 MG capsule Take 2 capsules (200 mg total) by mouth 3 (three) times a day. 60 capsule 2 5 Active famotidine (PEPCID) 10 MG tablet Take 10 mg by mouth daily. Active amitriptyline (ELAVIL) 25 MG tablet Take 25 mg by mouth nightly at bedtime. 06/30/20 Discontinu ed(No longer taking) famotidine (PEPCID) 20 MG tablet Take 20 mg by mouth 2 (two) times a day. 06/30/20 Discontinu ed(No longer taking) hydrALAZINE (APRESOLINE) 10 MG tablet TAKE 1 TABLET BY MOUTH THREE TIMES DAILY AFTER A MEAL 06/30/20 Discontinu ed(No longer taking) potassium chloride (MICRO-K) 10 mEq CR capsule Take 10 mEq by mouth. 4 06/30/20 Discontinu ed(No longer taking) fluticasone propionate (FLONASE) 50 mcg/actuation nasal spray 50 mcg by Nasal route. 4 06/30/20 Discontinu ed(No longer taking) fluticasone propionate (FLONASE) 50 mcg/actuation nasal spray Use 2 spray(s) in each nostril once daily 16 g 4 06/30/20 Discontinu ed(No longer taking) doxepin (SINEQUAN) 10 MG capsule TAKE 1 CAPSULE BY MOUTH NIGHTLY AT BEDTIME 30 capsule 5 06/30/20 25 Discontinu ed(No longer taking) SEROQUEL 50 mg tablet Take 50 mg by mouth nightly at bedtime. 5 06/30/20 25 Discontinu ed(No longer taking) zolpidem (AMBIEN) 5 MG tablet Take 5 mg by mouth nightly at bedtime as needed. 5 06/30/20 25 Discontinu ed(No longer taking) Active Problems Patient Care Coordination No te Formatting of this note migh t be different from the original. Patient is high risk for these reasons: pacemaker, Diastolic HF with preserved EF- s/p cardiomems implantation on 05/17/23, DM; CKD V;hypertrophic cardiomyopathy; recent runs of VT/ PAF. Living Situation: Lives in single family home with in [place], [place] Functional Status (ADL's/iADLs): Independent with ADLs/ IADLs, drives Family/Social Supports: supportive Efrain Goals of Care (HCP/Molst): Full Code (06/05/23); HCP- Efraingiovanni Fierro () [phone] Is this patient appropriate for the Serious Illness Conversation? no Community Supports (e.g. VNA, DME Vendors, Elder Services): cardiac rehab Transportation: drives and also drives Medication Management System/Specialized Pharmacy Needs: self Financial Concerns: not in general but does have difficulty affording some recommended medications Other Supports and Care Needs: Followed by a credit front office developer at [facility] and gradually transitioning to specialists as well as PCP in the [place] area but currently Dr. Way as his primary care provider. Bulk Tank Car Unloader is Dr. Mena at [facility]; Dr Crawford is HF specialist at [facility].. Frequently hospitalized at [facility] and [facility]. PCP : Dr. Dimple Way Camera Machinist:Dr. Fontenot also rec outpatient PFT and sleep study. HEART Failure- Dr. Granados. GI: Dr. Dr Estefany Youngblood ([facility], [address], [address], [place] [address] --- [phone]). Ophthalm: Dr. Hannah GARZON, OD Bulk Tank Car Unloader: Nephro: Dr Merritt Daugherty ([facility] [address] [place] [address] Drive, [address], [place] [address] --- [phone]). Dermatology: Dr. Alexander. 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/2024 Medically complex patient 12/11/2024 Chronic cough 06/10/2024 CKD (chronic kidney [...] failure 05/30/2023 History of ventricular tachycardia 05/30/2023 termite helper (current) use of anticoagulants 2022 Microalbuminuria due [...] heart disease without heart failure 04/11/2021 05/30/2023 assisted current use of oral hypoglycemic drug 04/11/2021 Hesitancy of micturition 11/16/2020 023 Melanocytic nevi of trunk 12/31/20182022 Neuropathy due to type 2 diabetes mellitus 10/3005/30/2023 Diverticulosis of large intestine without hemorr clarissa 08/29/2017 04/02/2023 Overview (04/02/2023): 08/22/17, Dr. Morgan, [facility], pathology neg. Repeat in 5 year. Int. hemorrhoid and sig+gen diverticulosis. Diverticulosis of large inte justin without perforation or abscess without bleeding 08/29/2017 05/30/2023 Overview (05/30/2023): 08/22/17, Dr. Morgan, [facility], pathology neg. Repeat in 5 year. [...] months is rec. Polyp, sinus maxillary 10/05/2014 3 Overview (04/02/2023): 09/22/2014, Endoscopic R middle meatus [...] complication 04/17/2010 04/02/2023 Overview (04/02/2023): Dr. Morgan. [facility]-06/30/2001, colonic mucosa displaying focal congestion in lamina propria CLS-07/07/2009, inflammatory polyp with focal lymphoid hyperplasia. [facility]-07/14/2012, well controlled colitis. And patent anastomosis from prior sigmoid resection. Mild diverticulosis, int. Hemorrhoids. Mild inflammation of the IC valve C/W known Crohn's. 06/28/2013, ED/EH, colitis flare-up. Switch from SULFASALAZINE to mesalamine. Tx with prednisone, started at 40 mg. 08/22/17, Dr. Morgan, [facility], pathology neg. Repeat in 5 year. Int. hemorrhoid and sig+gen diverticulosis. Based on record review by Intelligence Engineer and clinical documentation. [facility] Gastro/Dr Morgan office [...] LDL < 70 according to rec. From [employer]. -pt reports that Dr. Pelaez [...] Encounters Date Type Department Care Team Description 07/07/2025 Telephone [facility] [address] [place] [address] MD 06/30/2025 2:20 PM EDT Follow-Up [facility] [address] [place] [address] MD Chronic combined systolic and diastolic congestive heart failure (Primary Dx); Hypokalemia; V-tach; termite helper (current) use of anticoagulants; CKD (chronic kidney disease) stage 4, GFR 15-29 ml/min; Essential hypertension; Hypothyroidism due to medication; Sleep disturbance; WILLIE (obstructive sleep apnea); Renal lesion; Gastroesophageal reflux disease without esophagitis; Diabetes mellitus type 2 with complications; Type 2 diabetes mellitus with hyperglycemia, without long-term current use of insulin; Type 2 diabetes mellitus with stage 4 chronic kidney disease, without long-term current use of insulin; Microalbuminuria due to type 2 diabetes mellitus; History of cerebellar stroke; Mixed hyperlipidemia; Crohn's disease of small intestine with complication; History of SCC (squamous cell carcinoma) of skin; Benign prostatic hyperplasia with urinary hesitancy; Increased prostate specific antigen (PSA) velocity; Chronic cough; Chronic low back pain, unspecified back pain laterality, unspecified whether sciatica present; Abnormal CBC; Prostate cancer screening; Lumbar radiculopathy; Pain of lower extremity, unspecified laterality; Medically complex patient; Encounter for medication review; Vaccine counseling 06/30/2025 Telephone [facility] [address] [place] [address] MD add a1c 06/25/2025 [facility], [facility]. Care Management [address] [place] [address] Clei Starr [facility] Medication Review 06/24/2025 [facility], [facility]. Care Management [address] [place] [address] Jovanni Grover, RN Post Discharge Follow Up Call Attempt 2 (Post Discharge follow up call) 06/23/2025 [facility], [facility]. Care Management [address] [place] [address] Jovanni Grover, CELINA 06/18/2025 Patient Outreach [facility] Care Management [address] [place] [address] Gema Lindsay, CELINA Care Coordination ( Post discharge call back.) 06/18/2025 Patient Outreach [facility]. Care Management [address] [place] [address] Gema Lindsay, RN Post Discharge Follow Up Call Attempt 2 (Seen at ED 06/16/25); Care Coordination 06/18/2025 [facility], [facility]. Care Management [address] [place] [address] Gema Lindsay, RN Post Discharge Follow Up Call Attempt 2 (Seen at ED 06/16/25) 06/17/2025 [facility] [address] [place] [address] MD 06/17/2025 [facility], [facility]. Care Management [address] [place] [address] Chloe Patel, CELINA Post Discharge Follow Up Call (ED visit at [facility] on 07/17 with weakness) 06/08/2025 Refill [facility] [address] [place] [address] Angel Allred MD Medication Refill 06/03/2025 Patient [facility], [facility] Care Management [address] [facility] [address] [place] [address] Chloe Patel, CELINA Care Coordination (Routine follow up) 06/01/2025 Patient [facility] Care Management [address] [facility] [address] [place] [address] Chloe Patel, CELINA Care Coordination (Routine follow up) 06/01/2025 Refill [facility] [address] MD Medication Refill 05/19/2025 Patient [facility], [facility] Care Management [address] [facility] [address] [place] [address] Chloe Patel RN Care Coordination (Routine follow up) 05/14/2025 Refill [facility] [address] [address] Angel Allred MD Medication Refill 05/04/2025 12:20 PM EDT Follow-Up [facility] [address] MD Chronic combined systolic and diastolic congestive heart failure (Primary Dx); History of ventricular tachycardia; History of hypokalemia; Hypertrophic cardiomyopathy; Orthostatic dizziness; CKD (chronic kidney disease) stage 5, GFR 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 ml/min; Essential hypertension; Sleep disturbance; WILLIE (obstructive sleep apnea); Vaccine counseling 04/16/2025 [facility], [facility]. Care Management [address] [facility] [address], [place] [address] Chloe Patel RN Care Coordination (Follow up after hospitalization) 04/16/2025 Refill [facility] [address] [facility] [address] [place] [address] MD Medication Refill 04/14/2025 Telephone [facility] [address] [address] Kala Ackerman [place] 04/13/2025 Patient Outreach [facility]. Care Management [address] [place] [address] Chloe Patel, RN Post Discharge Follow Up Call ([facility] re-admit protocol ) from Last 3 Months Immunizations Immunization Administration Dates Next Due COVID-19 (Pre-08/12) Pfizer Vaccine, mRNA, PF 08/02/2021,08/01/2021,12/23/2020,12/02 COVID-19 Pfizer Comirnaty Vaccine 12+ 07/10/2024 [id number] FORMULATION 12/12/2009 Hepatitis B Adult 12/16/2024 INFLUENZA, SPLIT VIRUS, TRIVALENT PF 09/11/2013, 09/09/2012 INFLUENZA, SPLIT VIRUS, TRIV ALENT W/ PRESERVATIVE IM 07/25/2021,08/12/2020,11/11/2019,08/12,08/19/2017,10/03/2016,09/27/2015 ,09/13/2014,09/11/2013,09/09/2012 Influenza High-Dose Quadriva lent Preservative Free IM 07/10/2024,08/12/2022,07/25/2021,08/12 Influenza High-Dose Trivalen t Preservative Free IM 07/10/2024,08/12/2022,08/21/2020,11/11,08/12/2018,08/19/2017,10/03/2016 ,09/27/2015,09/13/2014 Influenza Quadrivalent Adjuv anted Preservative Free IM 09/05/2023 Influenza, Unspecified Formulation 09/11,09/11/2013,09/09/2012,08/04,09/10/2003 Pneumococcal conjugate PCV13 [...] Sign Reading Time Taken Comments Blood Pressure 118/76 06/30/2025 2:19 PM EDT Pulse 50 06/30/2025 2:19 PM EDT Temperature 36.4 C (97.6 F) 06/30/2025 2:19 PM EDT Respiratory Rate - - Oxygen Saturation 100% 06/30/2025 2:19 PM EDT Inhaled Oxygen Concentration - - Weight 80.9 kg (178 lb 6.4 oz) 06/30/2025 2:19 P M EDT Height 171.5 cm (5' 7.5 ) 06/30/2025 2:19 PM EDT Body Mass Index 27.53 06/30/2025 2:19 PM EDT Plan of Treatment Upcoming Encounters Date Type Department Care Team (Late st Contact Info) Description 08/17/2025 1:40 PM EDT [facility] Visit [facility] [address] [place] [address] Isabel Alexander MD [address] [place] [address] [email or web address] 01/19/2026 2:20 PM EDT Follow-Up [facility] [place] [address] [place] [address] MD [address] [place] [address] Health Maintenance Due Date Last Done Comments SMOKING Hx and SMOKELESS TOBACCO SCREENING 1958 DIABETIC EYE EXAM 04/02/2023 INFLUENZA VACCINE (#1) 2025 , 07/10/2024, 09/05/2023, Additional history exists COVID-19 VACCINE ( season) 2025 07/10/2024, 09/05/2023, 10/09/2022, Additional history exists DEPRESSION SCREENING 12/09/2025 12/09/2024 BLOOD PRESSURE 12/28/2025 06/30/2025 HEMOGLOBIN A1C 12/28/2025 06/30/2025, 02/0 04/2025, 12/04/2023, Additional history exists ALT LEVEL (ALANINE AMINOTRANSFERASE) 06/30/2026 06/30/2025, 11/27/2024, 12/04/2023, Additional history exists CREATININE LEVEL 06/30/2026 06/30/2025, , 06/03/2024, Additional history exists LIPID PANEL 06/30/2026 06/30/2025, 02/0 04/2025, 11/27/2024, Additional history exists POTASSIUM LEVEL 06/30/2026 06/30/2025, 020 04/2025, 12/04/2023 TSH LEVEL 06/30/2026 06/30/2025, 04/2025, 11/13/2024, Additional history exists Adult Td,Tdap Booster 12/11/2033 [...] Procedure Name Priority Date/Time Associated Diagnosis Comments PSA Routine 06/30/2025 4:15 PM EDT Prostate cancer screening MICROALBUMIN, URINE Routine 06/30/2025 4 :15 PM EDT Chronic combined systolic and diastolic congestive heart failure CKD (chronic kidney disease) stage 4, GFR 15-29 ml/min Microalbuminuria Microalbuminuria due to type 2 diabetes mellitus Essential hypertension Diabetes mellitus type 2 with complications TSH Routine 06/30/2025 4:15 PM EDT Hypothyroidism due to medication HEMOGLOBIN A1C Routine 06/30/2025 4:15 PM EDT Diabetes mellitus type 2 with complications LIPID PANEL Routine 06/30/2025 4:15 PM EDT Diabetes mellitus type 2 with complications Mixed hyperlipidemia COMPREHENSIVE METABOLIC PANEL Routine 06/30/2025 4:15 PM EDT Chronic combined systolic and diastolic congestive heart failure CKD (chronic kidney disease) stage 4, GFR 15-29 ml/min Essential hypertension Diabetes mellitus type 2 with complications CBC AND DIFFERENTIAL Routine 06/30/2025 4:15 PM EDT Chronic combined systolic and diastolic congestive heart failure Atrial fibrillation, unspecified type assisted (current) use of anticoagulants from Last 3 Months Results * PSA (06/30/2025 4:15 PM EDT) Prostate Specific Antigen 1.40 0.0 - 4.0 ng/mL [facility] (CLIA# [id number]) Comment: This test was performed using the CryptoSeal IM chemiluminescent method. Values obtained from different assay methods cannot be used interchangeably. 06/30/2025 4:15 PM EDT 06/30/2025 8:[address] MD LAB BLOOD ORDERABLES Final Resul t Performing Organization Address City/[facility]/ZIP Co de Phone Number [facility] (CLIA# [id number]) [address] [place], [place] [id number] * (ABNORMAL) Microalbumin, Urine (06/30/2025 4:15 PM EDT) Pathologist [facility] Urmicroalbumin 50.2 ug/mL [facility] (CLIA# [id number]) Creatinine, Urine Random 34.0 mg/dL [facility] (CLIA# [id number]) Comment:Reference: NONE ESTA BLISHED Microalb/Creat Ratio 148(H) 0 - 30 ug/mg [facility] (CLIA# [id number]) Urine 06/30/2025 4:15 PM EDT 06/30/2025 7:[address] MD URINE ORDERABLES Final Result Performing Organization Address City/[facility]/ZIP Co de Phone Number [facility] (CLIA# [id number]) [address] [place] [address] * (ABNORMAL) Comprehensive metabolic panel (06/30/2025 4:15 PM EDT) Sodium 140 135 - 145 mmol/L [facility] (CLIA# [id number]) Potassium 5.0 3.5 - 5.5 mmol/L [facility] (CLIA# [id number]) Chloride 97(L) 98 - 107 mmol/l [facility] (CLIA# [id number]) Carbon Dioxide 34(H) 20.0 - 31.0 mmol/L [facility] (CLIA# [id number]) Anion Gap 8 5 - 15 mmol/L [facility] (CLIA# [id number]) Glucose 116(H) 70 - 99 mg/dL [facility] (CLIA# [id number]) Comment:Adult, Fasting Non-d iabetic Reference Range Blood Urea Nitrogen 73(H) 9 - 23 mg/dL [facility] (CLIA# [id number]) Creatinine 4.30(H) 0.70 - 1.30 mg/dL [facility] (CLIA# [id number]) GFR Estimated (Calc) 13(L) >60 [facility] (CLIA# [id number]) Comment: eGFRcr Reference: Normal: > 90 ml/min/1.73 m2 Indeterminate, relevance is multifactorial: 60 -89 ml/min/1.73 m2 Suggest Kidney Disease: 16 -59 ml/min/1.73 m2 Suggest Kidney Failure: < 15 ml/min/1.73 m2 Calcium 9.8 8.3 - 10.6 mg/dL [facility] (CLIA# [id number]) Comment:PLEASE NOTE: NEW REF ERENCE RANGE Total Protein 6.5 5.7 - 8.2 g/dL [facility] (CLIA# [id number]) Albumin 3.9 3.2 - 4.8 g/dL [facility] (CLIA# [id number]) Globulin 2.6 1.6 - 3.5 g/dL [facility] (CLIA# [id number]) Alb/Glob Ratio 1.5 [facility] (CLIA# [id number]) Bilirubin,Total 0.2(L) 0.3 - 1.2 mg/dL [facility] (CLIA# [id number]) Alkaline Phosphatase 90 46 - 136 U/L [facility] (CLIA# [id number]) AST(SGOT) 19 13 - 40 U/L [facility] (CLIA# [id number]) ALT(SGPT) 15 7 - 40 U/L [facility] (CLIA# [id number]) 06/30/2025 4:15 PM EDT 06/30/2025 7:[address] MD LAB BLOOD ORDERABLES Final Resul t [facility] (CLIA# [id number]) [address] [facility] [address] * (ABNORMAL) CBC and differential (06/30/2025 4:15 PM EDT) WBC 10.8 4.5 - 11.0 10*3/mm3 [facility] (CLIA# [id number]) RBC 4.31(L) 4.50 - 5.90 10*6/mm3 [facility] (CLIA# [id number]) Hemoglobin 11.1(L) 13.5 - 17.5 g/dL [facility] (CLIA# [id number]) Hematocrit 37.1(L) 41.0 - 53.0 % [facility] (CLIA# [id number]) Platelet 326 150 - 450 10*3/mm3 [facility] (CLIA# [id number]) % Neutrophils 56.8 40 - 70 % [facility] (CLIA# [id number]) % Lymphocytes 34.7 22 - 44 % [facility] (CLIA# [id number]) % Monocytes 6.0 0 - 11 % [facility] (CLIA# [id number]) % Eosinophils 1.2 0 - 6 % [facility] (CLIA# [id number]) % Basophils 0.7 0 - 3 % [facility] (CLIA# [id number]) % Immature Granulocytes 0.6 0 - 5 % [facility] (CLIA# [id number]) Abs Neutrophils 6.1 1.8 - 7.7 10*3/mm3 [facility] (CLIA# [id number]) Abs Lymph Count 3.7 1.0 - 4.8 10*3/mm3 [facility] (CLIA# [id number]) Abs Monocytes 0.7 0.0 - 0.8 10*3/mm3 [facility] (CLIA# [id number]) Abs Eosinophils 0.1 0 - 0.5 10*3/mm3 [facility] (CLIA# [id number]) Abs Basophils 0.1 0 - 0.3 10*3/mm3 [facility] (CLIA# [id number]) Abs Immature Granulocytes 0.1 0 - 0.5 10*3/mm3 [facility] (CLIA# [id number]) MCV 86.1 80.0 - 99.0 fL [facility] (CLIA# [id number]) MCH 25.8(L) 26.0 - 34.0 pg [facility] (CLIA# [id number]) MCHC 29.9(L) 31.0 - 35.5 g/dL [facility] (CLIA# [id number]) RDW 19.3(H) 11.5 - 14.5 % [facility] (CLIA# [id number]) MPV 10.9 9.4 - 12.4 [facility] (CLIA# [id number]) % Nucleated RBC 0 0 % [facility] (CLIA# [id number]) Abs Nucleated RBC 0.0 0 10*3/mm3 E [facility] (CLIA# [id number]) Blood 06/30/2025 4:15 PM EDT 06/30/2025 7:[address] MD LAB BLOOD ORDERABLES Final Resul t [facility] (CLIA# [id number]) [address] [place] [address] * TSH (06/30/2025 4:15 PM EDT) Thyroid Stimulating Hormone 1.96 0.55 - 4.78 uIU/mL [facility] (CLIA# [id number]) 06/30/2025 4:15 PM EDT 06/30/2025 7:[address] MD LAB BLOOD ORDERABLES Final Resul t Performing Organization Address [facility]/ZIP Co de Phone Number [facility] (CLIA# [id number]) [address] [place] [address] * (ABNORMAL) Hemoglobin A1c (06/30/2025 4:15 PM EDT) Hemoglobin A1C 6.4(H) <5.6 % [facility] (CLIA# [id number]) Comment: HGBA1C REFERENCE RANGES: Normal: 4.0% - 5.6% Prediabetes: 5.7% - 6.4% Diabetes: > or = to 6.5% Estimated Avg Glucose 137 mg/dL [facility] (CLIA# [id number]) 06/30/2025 4:15 PM EDT 06/30/2025 7:[address] MD LAB BLOOD ORDERABLES Final Resul t [facility] (CLIA# [id number]) [address] [place] [address] * (ABNORMAL) Lipid panel (06/30/2025 4:15 PM EDT) Cholesterol 194 125 - 200 mg/dL [facility] (CLIA# [id number]) Comment: Cholesterol Reference: Desirable cholesterol: < 170 mg/dL Borderline cholesterol: 170-200 mg/dL High cholesterol: > 200 mg/dL Triglycerides 223(H) 0 - 150 mg/dL [facility] (CLIA# [id number]) HDL Cholesterol 41 >40 mg/dL [facility] (CLIA# [id number]) Comment: HDL Reference: Low (Undesirable, High Risk): <40.0 mg/dL High (Desirable, Low Risk): >=60.0 mg/dL LDL Cholesterol(Calc) 108 <160 mg/dL [facility] (CLIA# [id number]) Comment: LDL Reference: OPTIMAL: <100 mg/dL NEAR OPTIMAL/ABOVE OPTIMAL: 100-129 mg/dL BORDERLINE HIGH: 130-159 mg/dL HIGH: 160-189 mg/dL VERY HIGH: >=190 mg/dL Chol/HDL Ratio 4.7 1.5 - 5.0 [facility] (CLIA# [id number]) 06/30/2025 4:15 PM EDT 06/30/2025 7:[address] MD LAB BLOOD ORDERABLES Final Resul t [facility] (CLIA# [id number]) [address] [place] [address] from Last 3 Months Insurance [facility] PPO MEDICARE PART A & B [employer] STATE PPO MEDICARE PART A & B [place] STATE O MEDICARE PART A & B [facility] PPO MEDICARE PART A & [facility] PART A & [facility] PART A & B [facility] PPO MEDICARE PART A & B [employer] PPO MEDICARE PART A & B [place] [employer] [place] PPO MEDICARE PART A & B Member Subscriber Plan / Payer (Ef fective 2010-Present) Name:Dago Kim Member ID:[id number] Relation to Subscriber:Self Name:Dago Kim Subscriber ID:[id number] Payer ID:[id number] Group ID:Not on file Type:Medicare Address: [facility] [employer] [facility] [id number] [place] OUT OF STATE O MEDICARE PART A & B [place] [place] PPO MEDICARE PART A & B Advance Directives For more information, please contact: [phone] (9AM - 5PM [facility], Saturday-Saturday) Documents on File Type Date Recorded Patient House Manager Expl anation Healthcare Proxy 04/01/2025 MOLST 04/01/2025 * Full Code (Latest Code Status on File) Date Activated Date Inactivated Comments 06/05/2023 1:10 PM Question Answer Comments Code Status Confirmed With: Patient Code Status Communicated To: PCP Code Discussion Comments: 06/15/19, MOLST -ATTEMPT RESUSCITATION, INTUBATE AND VENTILATE, USE NON-INVASIVE VENTILATION, TRANSFER TO HOSPITAL, USE DIALYSIS, USE ARTIFICIAL NUTRITION, USE ARTIFICIAL HYDRATION. Care Teams Manufacturer Agent Relationship Specialty Start Date End Date Lucita Way MD [address] [place] [address] PCP - General Internal Medicine 11/23/[address] MD [address] [place] [address] Insurance Assigned Provider 01/25/24 Chloe Patel RN [address] [place] [id number] [email or web address] [email or web address] [employer] Mounter 08/24/22 Additional Source Comments The information contained in this document represents components of the legal health record. It is not the complete legal health record.[facility]
--- OUTSIDE RECORDS SUMMARY | 2025-07-13 17:08 | XMS_ITS | Encounter Summary ---
Author Organization [facility] Address [address] [place] [address] Phone Care Team Providers Care Milling/Polishing Operator Name Role Phone Lucita Way MD Unavailable Lucita Way MD Primary Care Provider [phone] Chloe Patel RN Unavailable [email or web address] Encounter Details Date Type Department Care Team (Late st Contact Info) Description 06/17/2025 Telephone [facility] [place] [address] [place] [address] MD [address] [place], [place] [id number] Social History Tobacco Use Types Packs/Day Years [...] as of this encounter Progress Notes * Hernadez Dede - 06/17/2025 2:52 PM EDT Patient called requesting to speak to the Aircraft Powertrain Repairer regarding a bill that was submitted to Medicare. Please follow up with patient documented in this encounter Plan of Treatment Upcoming Encounters Date Type Department Care Team (Late st Contact Info) Description 08/17/2025 1:40 PM EDT Office Visit Adult & Pediatric Dermatology, [address] [facility] [address] [place] [address] Isabel Alexander MD [address] [place] [address] 01/19/2026 2:20 PM EDT Follow-Up [facility] [place] [address] [place] [address] MD [address] [place] [address] documented as of this encounter Visit Diagnoses Not on filedocumented in this encounter Additional Health Concerns Assessment Noted Time PHQ-2 Depression Total Score: 0 12/09/19 25 5:11 PM EST documented as of this encounter Care Teams Milling/Polishing Operator Relationship Specialty Start Date End Date Lucita Way MD [address] [place] [address] PCP - General Internal Medicine 11/23/[address] MD [address] [facility] [address] [place] [address] Insurance Assigned Provider 01/25/24 Chloe Patel, RN [address] [place] [id number] [email or web address] Hedis Analyst 08/24/22 documented as of this encounter Additional Source Comments The information contained in this document represents components of the legal health record. It is not the complete legal health record.[facility]
--- OUTSIDE RECORDS SUMMARY | 2025-07-13 17:08 | XMS_ITS | Clinical Summary ---
Author Organization [facility] Address [address] [place], [place] [phone] Care Team Providers Care Hatchery Manager Name Role Phone Lucita Way MD Unavailable Loy Henriquez MD Unavailable [phone] Allergies Active Allergy Reactions Criticality Noted Date [...] COVID-19 Vaccine (1 - 2023-2 5 season) 2025 Influenza Vaccine (#1) 2025 Meningococcal B Vaccines Aged Out No longer eligible based on patient's age to complete this topic Meningococcal Vaccines Aged Out No lo nger eligible based on patient's age to complete this topic Care Teams Hatchery Manager Relationship Specialty Start Date End Date Lucita Way MD [address] [place] [address] PCP - Insurance Assigned PCP 01/25/23 Loy Henriquez MD [address] [place] [address] Cardiology 03/21/24
--- OUTSIDE RECORDS SUMMARY | 2025-07-13 17:08 | XMS_ITS | Clinical Summary ---
Author Organization [facility] Address [address] [facility] [address] [place] [address] Phone Care Team Providers Care Pack Worker Supervisor Name Role Phone Unavailable Primary Care Provider [...] Hypertensive heart disease without heart failure 04/11/2021 shelter current use of oral hypoglycemic drug 04/11/2021 [...] renal cysts are stable. Dr. Garza. 02/21/2015, [facility], Dr. Morgan There are multiple bilateral renal [...] Pt is discharged by Dr. Garza. 02/21/2015, [facility], Dr. Morgan There are multiple bilateral renal [...] sig+gen diverticulosis. Based on record review by Card Tape Converter Operator and clinical documentation. [facility]/Dr Morgan [...] LDL < 70 according to rec. From [place] [facility] [employer]. -pt reports that Dr. Henriquez [...] age to complete this topic Insurance Medicare [facility] Medicare [facility]
== END 2025-07-13 14:47 | disposition home or self-care (01) ==
LOC: HO.HKAS 13:55
PROVIDERS: PCP Internal Medicine; Visit Provider Internal Medicine Nephrology
DX: I12.0 Hypertensive chronic kidney disease with stage 5 chronic kidney disease or end stage renal disease (principal); N25.81 Secondary hyperparathyroidism of renal origin; N18.5 Chronic kidney disease, stage 5; D63.1 Anemia in chronic kidney disease; E61.1 Iron deficiency
CPT/HCPCS: 99214

== ENCOUNTER → 2025-07-13 13:54 | Outpatient (BNVA) | payer MEDICARE, BC, SELFPAY | PROVIDERS: PCP Internal Medicine; Visit Provider Internal Medicine Nephrology | DX: E11.22 Type 2 diabetes mellitus with diabetic chronic kidney disease (principal); I12.0 Hypertensive chronic kidney disease with stage 5 chronic kidney disease or end stage renal disease; N18.5 Chronic kidney disease, stage 5; N25.81 Secondary hyperparathyroidism of renal origin; D63.1 Anemia in chronic kidney disease | CPT/HCPCS: 99212 ==

== ENCOUNTER 2025-09-23 13:24 | Outpatient (AMB) | payer MEDICARE, BC, SELFPAY ==
--- NOTE | 2025-09-23 13:31 | HO.NEPHOV ---
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 He has H/O no significant proteinuria and has a bland UA. Etiology of his CKD has been unclear with ddx possibilities including prior SHAAN with incomplete recovery, AIN associated with crohn's or sulfasalazine, nonproteinuric DKD, nephrosclerosis, and CRS. Despite optimization of his volume status using the cardiomems device his creatinine has remained at about 3.8-4 mg/dl. He is not uremic. He has been off of sulfasalazine and his crohn's is quiescent.He went for modality education in the past and is planning for home HD. His last eGFR was close to 14 cc/min. His GFR had been fluctuant based on the dose of diuretics he takes( adjusted by Dr Granados). [facility] Medical History (Updated 07/13/25 @ 14:28 by Merritt Daugherty MD) Type 2 diabetes mellitus Congestive heart failure Hypertension Chronic kidney disease Surgical History S/P placement of cardiac pacemaker S/P rotator cuff repair History of appendectomy History of colectomy History of hip replacement Social History Alcohol intake: never Patient Tobacco Use Status: Former Tobacco user Review of Systems Const All systems reviewed & are unremarkable except as noted in HPI and below Physical Exam Vital Signs: Last Vital Signs Pulse 63 09/23/25 13:33 BP 130/80 09/23/25 13:33 Pulse Ox 98 09/23/25 13:33 Oxygen Delivery Method Room Air 09/23/25 13:33 BMI result Body Mass Index 26.6 Const General: comfortable and no acute distress Orientation/consciousness: patient oriented x3 HEENT Head: Yes normocephalic Mouth: Normal oral and palatal mucosa present Eyes EOM: EOMs intact bilaterally Neck Neck: Yes supple Resp Auscultation: clear to auscultation bilaterally Cardio Jugular venous distension: no JVD Rate: regular rate GI Palpation (GI): Soft to palpation Auscultation: normal bowel sounds General: Yes no CVA tenderness Back/Spine/Pelvis Back: no CVA tenderness Skin General skin exam: no rashes or lesions noted Neuro General: patient oriented x3 and moves all extremities Extrem General: Yes no pedal edema Assessment & Plan Assessment & Plan (1) Secondary hyperparathyroidism (of renal origin): Code(s): N25.81 - Secondary hyperparathyroidism of renal origin Category: Medical (2) Hypertension: Code(s): I10 - Essential (primary) hypertension Category: Medical Qualifiers: Hypertension type: primary hypertension Qualified Code(s): I10 - Essential (primary) hypertension (3) CKD (chronic kidney disease) stage 5, GFR 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 ml/min: Code(s): N18.5 - Chronic kidney disease, stage 5 Category: Medical (4) Anemia in chronic kidney disease (CKD): Code(s): N18.9 - Chronic kidney disease, unspecified; D63.1 - Anemia in chronic kidney disease Category: Medical Qualifiers: Chronic kidney disease stage: stage 5, not on chronic dialysis Qualified Code(s): N18.5 - Chronic kidney disease, stage 5; D63.1 - Anemia in chronic kidney disease Plan 80 yo man with stage 5 CKD, potential etiologies could be multiple for his CKD but not very clear. He has no proteinuria. He had decline in GFR recently either due to progression of his renal disease . He is with Cardiomems . He appeared euvolemic and is no longer on sulfasalazine. UA is bland. Doppler is negative for ASTRID. I don't see any benefit to biopsy in this setting. We discussed home HD and he has interest in this . He is not uremic and remains diuretic responsive. He has seen Dr. Aiken. He has anemia chronic kidney disease and will need Procrit in the future to keep his hemoglobin close to 11 grams/deciliter. He is closely followed up with heart failure clinic in [facility] and has a CardioMEMS in place. He should start taking iron tablets. I did not make any medication changes today. F/U given Orders: Orders Electrolytes 6 Weeks D63.1 - Anemia in chronic kidney disease, I10 - Essential (primary) hypertension, N18.5 - Chronic kidney disease, stage 5, N25.81 - Secondary hyperparathyroidism of renal origin Calcium 6 Weeks D63.1 - Anemia in chronic kidney disease, I10 - Essential (primary) hypertension, N18.5 - Chronic kidney disease, stage 5, N25.81 - Secondary hyperparathyroidism of renal origin Blood Urea Nitrogen 6 Weeks D63.1 - Anemia in chronic kidney disease, I10 - Essential (primary) hypertension, N18.5 - Chronic kidney disease, stage 5, N25.81 - Secondary hyperparathyroidism of renal origin Phosphorus 6 Weeks D63.1 - Anemia in chronic kidney disease, I10 - Essential (primary) hypertension, N18.5 - Chronic kidney disease, stage 5, N25.81 - Secondary hyperparathyroidism of renal origin Complete Blood Count Auto Diff 6 Weeks D63.1 - Anemia in chronic kidney disease, I10 - Essential (primary) hypertension, N18.5 - Chronic kidney disease, stage 5, N25.81 - Secondary hyperparathyroidism of renal origin Creatinine 6 Weeks D63.1 - Anemia in chronic kidney disease, I10 - Essential (primary) hypertension, N18.5 - Chronic kidney disease, stage 5, N25.81 - Secondary hyperparathyroidism of renal origin Uric Acid 6 Weeks D63.1 - Anemia in chronic kidney disease, I10 - Essential (primary) hypertension, N18.5 - Chronic kidney disease, stage 5, N25.81 - Secondary hyperparathyroidism of renal origin Coding Level of Care Code Est Pt Level 4 (10981) Diagnoses Secondary hyperparathyroidism (of renal origin) N25.81 Primary hypertension I10 Hypertension type: primary hypertension CKD (chronic kidney disease) stage 5, GFR 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 ml/min N18.5 Anemia in stage 5 chronic kidney disease, not on chronic dialysis N18.5; D63.1 Chronic kidney disease stage: stage 5, not on chronic dialysis
[2025-09-23 13:33] VITALS: BP 130/80; PULSE 63; O2SAT 98; BMI 26.6
== END 2025-09-23 14:23 | disposition home or self-care (01) ==
LOC: HO.HKAS 13:24
PROVIDERS: PCP Internal Medicine; Visit Provider Internal Medicine Nephrology
DX: N25.81 Secondary hyperparathyroidism of renal origin (principal); I12.0 Hypertensive chronic kidney disease with stage 5 chronic kidney disease or end stage renal disease; N18.5 Chronic kidney disease, stage 5; D63.1 Anemia in chronic kidney disease
CPT/HCPCS: 99214

== ENCOUNTER → 2025-09-23 13:24 | Outpatient (BNVA) | payer MEDICARE, BC, SELFPAY | PROVIDERS: PCP Internal Medicine; Visit Provider Internal Medicine Nephrology | DX: N25.81 Secondary hyperparathyroidism of renal origin (principal); I10 Essential (primary) hypertension; N18.5 Chronic kidney disease, stage 5; D63.1 Anemia in chronic kidney disease | CPT/HCPCS: 99212 ==